=== PATIENT | male | born 1940 | race Caucasian/White ===

== ENCOUNTER 2017-07-20 21:21 | Emergency (ER) | payer MEDICARE, BC ==
[2017-07-20] MEDS ORDERED: Glucagon,Human Recombinant 1 MG Vial IVPUSH ONE (21:23)
[2017-07-20] MEDS ORDERED: 50% Dextrose in Water 50 ML Syringe IVPUSH ONE (21:42)
--- NOTE | 2017-07-20 21:42 | EDM.PDOC ---
ED HPI GENERAL MEDICAL PROBLEM - General Chief Complaint: Diabetic Complaint Stated Complaint: low blood sugar Time Seen by Provider: 07/20/17 21:34 Source of Information: Reports: Patient, EMS, Family, RN History Limitations: Reports: Altered Mental Status - History of Present Illness INITIAL COMMENTS - FREE TEXT/NARRATIVE: This patient is a 76 year old male that presents to the ER. Patient arrives via EMS. Patient family at bedside. Patient arrives with BS of 26. Patient is not alert. 20g Iv Placed left AC, 1mg Glucagon administered. Patient shortly after than now more alert. Patient family reports the patient takes insulin for his diabetes. They report he took his short acting insulin this evening prior to eating his dinner, he ate a good dinner, then about 6pm noticed patient was not acting right. She reports he was confused. She reports she then called her daughter who went over to the house to check on her father. She reports that he was confused and not acting himself. The patient about 10 minutes after having glucagon is more alert, sugar still 36. Gave amp D50. Patient is now much more alert and oriented. He has no complaints. He is now sitting up in the ER stretcher eating a food tray and drinking without difficulty. Stroke score 0. GCS 15 now. Onset: Today, Sudden Onset Date: 07/20/17 Onset Time: 18:00 Duration: Hour(s): Severity: Moderate Improves with: Reports: None Worsens with: Reports: None Associated Symptoms: Reports: Confusion, Nausea/Vomiting. Denies: Chest Pain, Cough, cough w sputum, Diaphoresis, Fever/Chills, Headaches, Loss of Appetite, Malaise, Rash, Seizure, Shortness of Breath, Syncope, Weakness - Related Data Allergies Allergy/AdvReac Type Severity Reaction Status Date / Time No Known Allergies Allergy Verified 07/20/17 21:45 Home Meds: Home Meds Ucmza-X-Dbrpyirealrtq [Beano] 1 tab PO DAILY 01/14/14 [History] Aspirin [Halfprin] 81 mg PO DAILY 01/14/14 [History] Calcium Carbonate/Vitamin D3 [Calcium 600 + Vit D 400] 5,000 units PO DAILY 05/29 [History] Cyanocobalamin (Vitamin B12) [Vitamin B12] 1 ml IM Q30D 01/14/14 [History] Folic Acid 1 mg PO DAILY 01/14/14 [History] Furosemide 40 mg PO Q48H 01/14/14 [History] Ibuprofen [Advil] 200 mg PO Q6H PRN 01/14/14 [History] Insulin Detemir [Levemir] 70 units SUBCUT BEDTIME 01/14/14 [History] Multivitamin [Multivitamins] 1 tab PO DAILY 01/14/14 [History] atorvaSTATin [Lipitor] 40 mg PO DAILY 01/14/14 [History] Docusate Sodium [Colace] 200 mg PO DAILY 07/20/17 [History] Fexofenadine [Cece] 30 mg PO ASDIRECTED PRN 07/20/17 [History] Insulin Aspart [NovoLOG] 0 unit SQ TID 07/20/17 [History] Iron Ps Cmplx/Vit B12/Fa [Poly-Iron 150 Forte] 1 each PO DAILY 07/20/17 [History ] Sodium Bicarbonate 10 gm PO TID 07/20/17 [History] Tamsulosin [Tamsulosin 24 Hr] 0.4 mg PO DAILY 07/20/17 [History] amLODIPine Besylate [Amlodipine Besylate] 5 mg PO DAILY 07/20/17 [History] ED ROS GENERAL - Review of Systems Review Of Systems: See Below Constitutional: Reports: No Symptoms HEENT: Reports: No Symptoms Respiratory: Reports: No Symptoms Cardiovascular: Reports: No Symptoms Endocrine: Reports: Low Glucose GI/Abdominal: Reports: Nausea, Vomiting (x1 in route.) : Reports: No Symptoms Musculoskeletal: Reports: No Symptoms Skin: Reports: No Symptoms Neurological: Reports: Confusion, Change in Speech (slurred) Psychiatric: Reports: No Symptoms Hematologic/Lymphatic: Reports: No Symptoms Immunologic: Reports: No Symptoms ED EXAM GENERAL NO PERIP PULSE - Physical Exam Exam: See Below Exam Limited By: Altered Mental Status General Appearance: Lethargic (response to painful stimuli. ), Obese Eye Exam: Bilateral Eye: Normal Inspection, PERRL Ears: Normal External Exam, Normal Canal, Hearing Grossly Normal, Normal TMs Nose: Normal Inspection, Normal Mucosa, No Blood Throat/Mouth: Normal Lips, Normal Teeth, Normal Gums, Normal Oropharynx, Normal Voice, No Airway Compromise, Other (drooling) Head: Atraumatic, Normocephalic Neck: Normal Inspection, Supple, Non-Tender, Full Range of Motion Respiratory/Chest: No Respiratory Distress, Lungs Clear, Normal Breath Sounds, No Accessory Muscle Use, Chest Non-Tender Cardiovascular: Normal Peripheral Pulses, Regular Rate, Rhythm, No Edema, No Gallop, No JVD, No Murmur, No Rub GI/Abdominal: Normal Bowel Sounds, Soft, Non-Tender, No Organomegaly, No Distention, No Abnormal Bruit, No Mass, Pelvis Stable (Male) Exam: Deferred Rectal (Males) Exam: Deferred Back Exam: Normal Inspection, Full Range of Motion Extremities: Normal Inspection, Normal Range of Motion, Non-Tender, No Pedal Edema, Normal Capillary Refill Neurological: Unresponsive Skin Exam: Warm, Dry, Intact, Normal Color, No Rash Lymphatic: No Adenopathy Course - Vital Signs Last Recorded V/S: Last Vital Signs Temp 96.0 F 07/20/17 21:55 Pulse 84 07/20/17 21:55 Resp 16 07/20/17 21:55 BP 140/79 07/20/17 21:55 Pulse Ox 99 07/20/17 21:55 - Orders/Labs/Meds Orders: Active Orders 24 hr Category Date Time Status Head wo Cont [CT] Stat Exams 07/20/17 22:04 Taken Labs: Laboratory Tests 07/20/17 07/20/17 07/20/17 Range/Units 21:34 21:34 21:42 WBC 7.8 (5.0-10.0) 10^3/uL RBC 3.02 L (4.50-6.00) 10^6/uL Hgb 9.1 L (14.0-18.0) g/dL Hct 29.6 L (40.0-54.0) % MCV 98.0 H (82.0-94.0) fL MCH 30.1 (27.0-32.0) pg MCHC 30.7 L (33.0-38.0) g/dL RDW Coeff of Jaida 13.8 (11.0-15.0) % Plt Count 168 (150-400) 10^3/uL Neut % (Auto) 74.1 (35-85) % Lymph % (Auto) 12.5 (10-55) % [place] % (Auto) 10.4 (0-16) % Eos % (Auto) 2.7 (0-5) % Baso % (Auto) 0.3 (0-3) % Neut # (Auto) 5.75 (1.80-7.00) 10^3/uL Lymph # (Auto) 0.97 L (1.00-4.80) 10^3/uL [place] # (Auto) 0.81 H (0.00-0.80) 10^3/uL Eos # (Auto) 0.21 (0.00-0.45) 10^3/uL Baso # (Auto) 0.02 10^3/uL Sodium 144 (136-145) mEq/L Potassium 3.3 L D (3.5-5.0) mEq/L Chloride 108 H (98-106) mEq/L Carbon Dioxide 23 (21-32) mmol/L BUN 57 H (7-18) mg/dL Creatinine 4.0 H* (0.7-1.3) mg/dL Est Cr Clr Drug Dosing TNP Estimated GFR (MDRD) 15 L (>=60) mL/min Glucose 62 L (75-99) mg/dL POC Glucose 32 L* (75-105) mg/dl Calcium 8.7 (8.4-10.1) mg/dL Total Bilirubin 0.2 (0.0-1.0) mg/dL AST 12 L (15-37) U/L ALT 25 (12-78) U/L Alkaline Phosphatase 86 (46-116) U/L Total Protein 7.0 (6.4-8.2) g/dL Albumin 2.9 L (3.4-5.0) g/dL 07/20/17 07/20/17 Range/Units 21:58 22:38 WBC (5.0-10.0) 10^3/uL RBC (4.50-6.00) 10^6/uL Hgb (14.0-18.0) g/dL Hct (40.0-54.0) % MCV (82.0-94.0) fL MCH (27.0-32.0) pg MCHC (33.0-38.0) g/dL RDW Coeff of Jaida (11.0-15.0) % Plt Count (150-400) 10^3/uL Neut % (Auto) (35-85) % Lymph % (Auto) (10-55) % [place] % (Auto) (0-16) % Eos % (Auto) (0-5) % Baso % (Auto) (0-3) % Neut # (Auto) (1.80-7.00) 10^3/uL Lymph # (Auto) (1.00-4.80) 10^3/uL [place] # (Auto) (0.00-0.80) 10^3/uL Eos # (Auto) (0.00-0.45) 10^3/uL Baso # (Auto) 10^3/uL Sodium (136-145) mEq/L Potassium (3.5-5.0) mEq/L Chloride (98-106) mEq/L Carbon Dioxide (21-32) mmol/L BUN (7-18) mg/dL Creatinine (0.7-1.3) mg/dL Est Cr Clr Drug Dosing Estimated GFR (MDRD) (>=60) mL/min Glucose (75-99) mg/dL POC Glucose 189 H 189 H (75-105) mg/dl Calcium (8.4-10.1) mg/dL Total Bilirubin (0.0-1.0) mg/dL AST (15-37) U/L ALT (12-78) U/L Alkaline Phosphatase (46-116) U/L Total Protein (6.4-8.2) g/dL Albumin (3.4-5.0) g/dL Meds: Medications Discontinued Medications Generic Name Dose Route Start Last Admin Trade Name Freq PRN Reason Stop Dose Admin Dextrose/Water 50 ml 07/20/17 21:42 07/20/17 21:47 Dextrose 50% In Water IVPUSH 07/20/17 21:43 50 ml ONETIME ONE Administration Glucagon 1 mg 07/20/17 21:23 07/20/17 21:29 Glucagen IVPUSH 07/20/17 21:24 1 mg ONETIME ONE Administration - Radiology Interpretation Free Text/Narrative:: Head ct: I called and spoke with radiologist: No acute bleed, shift, stroke. No acute finding. Ventricles enlarged, but after discussion symptoms do not match normal pressure hydrocephalus. CT Results Date: 07/20/17 CT Results Time: 23:58 - Re-Assessments/Exams Free Text/Narrative Re-Assessment/Exam: 07/20/17 21:59 Post Amp D50. Patient alert and oriented. Stroke Score 0. GCS 15. No complaints. Blood sugar now 189. Stable. 07/20/17 23:56 Blood sugar 328. Alert and oriented. No altered mental status. Will discharge. Departure - Departure Time of Disposition: 23:57 Disposition: Home, Self-Care 01 Condition: Good Clinical Impression: Hypoglycemia - Discharge Information Instructions: Hypoglycemia, [id number] Referrals: Raffi Malone MD [Primary Care Provider] - Forms: ED Department Discharge Additional Instructions: Hold Aliya Fleming Followup with your primary care provider Return to the ER for worsening of condition or any emergent concerns - My Orders Last 24 Hours: My Active Orders 07/20/17 22:04 Head wo Cont [CT] Stat - Assessment/Plan Last 24 Hours: My Active Orders 07/20/17 22:04 Head wo Cont [CT] Stat Plan: PLEASE SEE RN NOTE FOR PFSH.
[2017-07-20 22:05] LABS: CHLORIDE,CL 108 mEq/L (98-106); SODIUM,NA 144 mEq/L (136-145)
[2017-07-20 23:40] VITALS: BP 140/79
== END 2017-07-21 00:05 | disposition home or self-care (01) ==
LOC: CC.ED 21:21
DX: E11.649 Type 2 diabetes mellitus with hypoglycemia without coma (principal); Z79.4 Long term (current) use of insulin; Z79.82 Long term (current) use of aspirin; Z79.899 Other long term (current) drug therapy
CPT/HCPCS: 36415; 70450; 80053; 82962; 85025; 96374; 96375; 99285; J1610; J7060

== ENCOUNTER → 2017-08-16 | Day surgery (SDC) | payer MEDICARE, BC ==
[~2017-08-16] MED LIST: Lactated Ringers 1,000 ML IV SCH; Propofol 200 MG/20 ML SDV IV ONE
[2017-08-16 08:20] VITALS: BP 124/59
--- NOTE | 2017-08-19 10:23 | OR ---
DATE OF OPERATION: 08/16/2017 PREOPERATIVE DIAGNOSIS: IRON-DEFICIENCY ANEMIA. POSTOPERATIVE DIAGNOSIS: IRON-DEFICIENCY ANEMIA. SURGEON: Raffi Malone MD PROCEDURE: 1. FULL-LENGTH EGD WITH BIOPSY X4, CARLIE. 2. INCOMPLETE COLONOSCOPY DUE TO EXTREMELY POOR PREP. 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 COMPLICATIONS: None. SPECIMEN: 1. Antral biopsy x4. 2. CARLIE. FINDINGS: 1. Full-length EGD. 2. Antral mass worrisome for CA. 3. Colonoscopy to right colon. 4. Poor bowel prep with inconclusive colon results. RECOMMENDATIONS: We will have close followup of pending path reports. The patient likely will need a specialty consultation in the near future. INDICATIONS: The patient has been seen Nephrology for his chronic renal insufficiency. His hemoglobin levels have been slowly declining and he is iron deficient. Upper and lower endoscopy were ordered. DESCRIPTION OF PROCEDURE: The patient was prepped and draped, placed in the left lateral decubitus position. A lubricated Olympus gastroscope was inserted over a bit and advanced to cricopharyngeus area and easily intubated in the esophagus. Esophageal lining appeared benign in its entire course. The Z-line was crisp and sharp around 39 cm. No hernia present. No distal esophagitis, stricturing, ulceration, or Darling's changes. The scope was advanced into the stomach and the distal antrum had circumferential masslike effect in the peripyloric area. We were able to get through the pylorus, although it was slightly strictured into the second portion of duodenum. This and the duodenal bulb were benign. The scope was brought back into the stomach and retroflexed. The upper fundus and cardia were unremarkable. Direct visualization of the rest of the fundus was benign. The distal antrum has fungating mass extending into the lumen quite a ways, very ulcerated and friable, hard, 4 biopsies were taken along with the CARLIE. Air was then suctioned from the stomach and the scope was removed without complication. A lubricated Olympus colonoscope was then inserted and the patient immediately had stool throughout the . It was hard to get out of the rectum due to the amount of stool in the vault. It was very dark in color. We rather slowly and safely advanced past the splenic flexure, then it got very difficult to see anything at that point. We got near the hepatic flexure I assume, but visualization was so difficult. We stop for safety reasons. Upon withdrawal, no obvious or worrisome masses could be seen. We did see one area on our way in that looked like couple sessile polyps in the splenic flexure region, but by the time we were coming out of the scope, there was constant stream of stool through this area. We could not suction as it was too thick and could not find it for removal. No gross lesions were seen in the sigmoid or rectosigmoid area. The rectal vault could barely be visualized. Air was suctioned as best as possible and the scope removed without complication. FLYNN/ZAID /[id number]
== END ==
LOC: CC.SDS 06:20
PROVIDERS: ATTEND Family Medicine
DX: C16.3 Malignant neoplasm of pyloric antrum (principal); I12.9 Hypertensive chronic kidney disease with stage 1 through stage 4 chronic kidney disease, or unspecified chronic kidney disease; E11.22 Type 2 diabetes mellitus with diabetic chronic kidney disease; N18.9 Chronic kidney disease, unspecified; E78.5 Hyperlipidemia, unspecified; E53.8 Deficiency of other specified B group vitamins; E11.319 Type 2 diabetes mellitus with unspecified diabetic retinopathy without macular edema; M81.0 Age-related osteoporosis without current pathological fracture; D50.9 Iron deficiency anemia, unspecified; Z79.4 Long term (current) use of insulin; Z79.51 Long term (current) use of inhaled steroids; Z79.899 Other long term (current) drug therapy
CPT/HCPCS: 82962; 87081; 88305; 88342; J2704; J7120

== ENCOUNTER 2017-09-04 08:52 | Observation (INO) | payer MEDICARE, BC ==
[2017-09-04 09:40] LABS: CHLORIDE,CL 102 mEq/L (98-106); SODIUM,NA 138 mEq/L (136-145)
[2017-09-04] MEDS ORDERED: Ondansetron 4 MG Tab.DIS PO PRN (10:48)
[2017-09-04] MEDS ORDERED: Temazepam 15 MG Cap PO PRN (10:48)
[2017-09-04] MEDS ORDERED: Polyethylene Glycol 3350 Powder 17 GM Packet PO ONE (10:52)
[2017-09-04] MEDS ORDERED: Bisacodyl 10 MG Supp RECTAL ONE (10:52)
[2017-09-04] MEDS ORDERED: Acetaminophen/HYDROcodone 325-5 MG Tab PO PRN (10:53)
[2017-09-04] MEDS ORDERED: Sodium Chloride 0.9% 1,000 ML IV SCH (11:00)
[2017-09-04] MEDS: Insulin Aspart 100 Units/ML 3 ML Pen SUBCUT SCH ×2 (17:39→20:10)
[2017-09-04] MEDS ORDERED: **PTOM** Tamsulosin 0.4 MG Cap.ER PO SCH (20:00)
[2017-09-04] MEDS ORDERED: Insulin Detemir 100 Units/ML 3 ML Pen SUBCUT SCH (20:00)
[2017-09-04] MEDS: SODIUM BICARBONATE PO SCH (20:10)
[2017-09-05] MEDS ORDERED: **PTOM** Pantoprazole 40 MG Tab.CR PO SCH (07:00)
[2017-09-05 07:35] VITALS: BP 107/40
[2017-09-05] MEDS: Insulin Aspart 100 Units/ML 3 ML Pen SUBCUT SCH (08:00)
[2017-09-05] MEDS: SODIUM BICARBONATE PO SCH (08:13)
--- NOTE | 2017-09-05 08:42 | PCM.DCSUM1 ---
Discharge Summary - Hospital Course HPI Initial Comments: Phi is a 77 year old male with PMH of gastric cancer, type II DM, hypertension, who was admitted observation to the hospital on 09/04/2017 with severe constipation. He was recently diagnosed with gastric cancer. He had been having some abdominal pain and taking narcotics for this. He was also advised to do a high protein diet prior to surgery. Abdominal xray confirmed significant constipation related to his pain meds and high protein diet. - Discharge Data Discharge Date: 09/05/17 Discharge Disposition: Home, Self-Care 01 Condition: Good - Discharge Diagnosis/Problem(s) (1) Constipation SNOMED Code(s): 55619360 ICD Code: K59.00 - CONSTIPATION, UNSPECIFIED Status: Acute Current Visit : Yes Qualifiers: Constipation type: unspecified constipation type Qualified Code(s): K59.00 - Constipation, unspecified (2) Gastric cancer Status: Acute Current Visit: Yes Qualifiers: Malignant neoplasm of stomach location: unspecified location Qualified Code (s): C16.9 - Malignant neoplasm of stomach, unspecified - Patient Instructions Diet: Usual Diet as Tolerated Activity: As Tolerated Notify Provider of: Fever, Increased Pain, Nausea and/or Vomiting - Discharge Plan Home Medications: Home Meds Cyanocobalamin (Vitamin B12) [Vitamin B12] 1 ml IM Q30D 01/14/14 [History] Folic Acid 1 mg PO DAILY 01/14/14 [History] Furosemide 40 mg PO Q48H 01/14/14 [History] Insulin Detemir [Levemir] 40 units SUBCUT BEDTIME 01/14/14 [History] atorvaSTATin [Lipitor] 40 mg PO DAILY 01/14/14 [History] Docusate Sodium [Colace] 200 mg PO DAILY 07/20/17 [History] Fexofenadine [Cece] 180 mg PO ASDIRECTED PRN 07/20/17 [History] Insulin Aspart [NovoLOG] 28 unit SQ TID 07/20/17 [History] Iron Ps Cmplx/Vit B12/Fa [Poly-Iron 150 Forte] 1 each PO DAILY 07/20/17 [History ] Sodium Bicarbonate 10 gm PO TID 07/20/17 [History] Tamsulosin [Tamsulosin 24 Hr] 0.4 mg PO DAILY 07/20/17 [History] amLODIPine Besylate [Amlodipine Besylate] 5 mg PO DAILY 07/20/17 [History] Acetaminophen/HYDROcodone [Lyman 325-5 MG] 1 tab PO Q6H PRN 08/14/17 [History] Cholecalciferol (Vitamin D3) [Vitamin D3] 5,000 unit PO DAILY 08/14/17 [History] Lutein/Minerals/Vit A,C & E [Ocuvite] 1 tab PO DAILY 08/14/17 [History] Pantoprazole [ProTONIX] 40 mg PO DAILY 09/04/17 [History] - Discharge Summary/Plan Comment DC Time >30 min.: No - Patient Data Vitals - Most Recent: Last Vital Signs Temp 97.1 F 09/05/17 07:34 Pulse 78 09/05/17 07:34 Resp 20 09/05/17 07:34 BP 107/40 L 09/05/17 07:34 Pulse Ox 98 09/05/17 07:34 Weight - Most Recent: 224 lb 3.2 oz Lab Results - Last 24 hrs: Laboratory Results - last 24 hr 09/04/17 09/04/17 09/04/17 Range/Units 09:01 09:01 09:01 WBC 8.9 (5.0-10.0) 10^3/uL RBC 3.37 L (4.50-6.00) 10^6/uL Hgb 9.6 L (14.0-18.0) g/dL Hct 30.9 L (40.0-54.0) % MCV 91.7 (82.0-94.0) fL MCH 28.5 (27.0-32.0) pg MCHC 31.1 L (33.0-38.0) g/dL RDW Coeff of Jaida 12.9 (11.0-15.0) % Plt Count 223 (150-400) 10^3/uL Neut % (Auto) 77.8 (35-85) % Lymph % (Auto) 11.7 (10-55) % [place] % (Auto) 7.5 (0-16) % Eos % (Auto) 2.8 (0-5) % Baso % (Auto) 0.2 (0-3) % Neut # (Auto) 6.92 (1.80-7.00) 10^3/uL Lymph # (Auto) 1.04 (1.00-4.80) 10^3/uL [place] # (Auto) 0.67 (0.00-0.80) 10^3/uL Eos # (Auto) 0.25 (0.00-0.45) 10^3/uL Baso # (Auto) 0.02 10^3/uL D-Dimer, Quantitative (0.00-0.50) Sodium 138 (136-145) mEq/L Potassium 3.7 (3.5-5.0) mEq/L Chloride 102 (98-106) mEq/L Carbon Dioxide 16 L (21-32) mmol/L BUN 132 H* D (7-18) mg/dL Creatinine 4.1 H* (0.7-1.3) mg/dL Est Cr Clr Drug Dosing TNP Estimated GFR (MDRD) 14 L (>=60) mL/min Glucose 204 H D (75-99) mg/dL POC Glucose (75-105) mg/dl Calcium 9.1 (8.4-10.1) mg/dL Total Bilirubin 0.3 (0.0-1.0) mg/dL AST 16 (15-37) U/L ALT 26 (12-78) U/L Alkaline Phosphatase 94 (46-116) U/L C-Reactive Protein 6.5 H (0.2-0.8) mg/dL Total Protein 7.9 (6.4-8.2) g/dL Albumin 3.0 L (3.4-5.0) g/dL Urine Color Light yellow (YELLOW) Urine Appearance Clear (CLEAR) Urine pH 5.0 (4.5-8.0) Ur Specific [place] 1.010 (1.003-1.020) Urine Protein 100 H (NEGATIVE) mg/dL Urine Glucose (UA) 100 H (NEGATIVE) mg/dL Urine Ketones Negative (NEGATIVE) mg/dL Urine Occult Blood Negative (NEGATIVE) Urine Nitrite Negative (NEGATIVE) Urine Bilirubin Negative (NEGATIVE) Urine Urobilinogen 0.2 (0.2-1.0) EU/dL Ur Leukocyte Esterase Negative (NEGATIVE) Urine RBC Not seen (0-5) /HPF Urine WBC Not seen (0-5) /HPF Amorphous Sediment Few H (NOT SEEN) /HPF 09/04/17 09/04/17 09/04/17 Range/Units 09:01 17:02 19:42 WBC (5.0-10.0) 10^3/uL RBC (4.50-6.00) 10^6/uL Hgb (14.0-18.0) g/dL Hct (40.0-54.0) % MCV (82.0-94.0) fL MCH (27.0-32.0) pg MCHC (33.0-38.0) g/dL RDW Coeff of Jaida (11.0-15.0) % Plt Count (150-400) 10^3/uL Neut % (Auto) (35-85) % Lymph % (Auto) (10-55) % [place] % (Auto) (0-16) % Eos % (Auto) (0-5) % Baso % (Auto) (0-3) % Neut # (Auto) (1.80-7.00) 10^3/uL Lymph # (Auto) (1.00-4.80) 10^3/uL [place] # (Auto) (0.00-0.80) 10^3/uL Eos # (Auto) (0.00-0.45) 10^3/uL Baso # (Auto) 10^3/uL D-Dimer, Quantitative 1.77 H (0.00-0.50) Sodium (136-145) mEq/L Potassium (3.5-5.0) mEq/L Chloride (98-106) mEq/L Carbon Dioxide (21-32) mmol/L BUN (7-18) mg/dL Creatinine (0.7-1.3) mg/dL Est Cr Clr Drug Dosing Estimated GFR (MDRD) (>=60) mL/min Glucose (75-99) mg/dL POC Glucose 339 H 313 H (75-105) mg/dl Calcium (8.4-10.1) mg/dL Total Bilirubin (0.0-1.0) mg/dL AST (15-37) U/L ALT (12-78) U/L Alkaline Phosphatase (46-116) U/L C-Reactive Protein (0.2-0.8) mg/dL Total Protein (6.4-8.2) g/dL Albumin (3.4-5.0) g/dL Urine Color (YELLOW) Urine Appearance (CLEAR) Urine pH (4.5-8.0) Ur Specific [place] (1.003-1.020) Urine Protein (NEGATIVE) mg/dL Urine Glucose (UA) (NEGATIVE) mg/dL Urine Ketones (NEGATIVE) mg/dL Urine Occult Blood (NEGATIVE) Urine Nitrite (NEGATIVE) Urine Bilirubin (NEGATIVE) Urine Urobilinogen (0.2-1.0) EU/dL Ur Leukocyte Esterase (NEGATIVE) Urine RBC (0-5) /HPF Urine WBC (0-5) /HPF Amorphous Sediment (NOT SEEN) /HPF 09/05/17 Range/Units 07:34 WBC (5.0-10.0) 10^3/uL RBC (4.50-6.00) 10^6/uL Hgb (14.0-18.0) g/dL Hct (40.0-54.0) % MCV (82.0-94.0) fL MCH (27.0-32.0) pg MCHC (33.0-38.0) g/dL RDW Coeff of Jaida (11.0-15.0) % Plt Count (150-400) 10^3/uL Neut % (Auto) (35-85) % Lymph % (Auto) (10-55) % [place] % (Auto) (0-16) % Eos % (Auto) (0-5) % Baso % (Auto) (0-3) % Neut # (Auto) (1.80-7.00) 10^3/uL Lymph # (Auto) (1.00-4.80) 10^3/uL [place] # (Auto) (0.00-0.80) 10^3/uL Eos # (Auto) (0.00-0.45) 10^3/uL Baso # (Auto) 10^3/uL D-Dimer, Quantitative (0.00-0.50) Sodium (136-145) mEq/L Potassium (3.5-5.0) mEq/L Chloride (98-106) mEq/L Carbon Dioxide (21-32) mmol/L BUN (7-18) mg/dL Creatinine (0.7-1.3) mg/dL Est Cr Clr Drug Dosing Estimated GFR (MDRD) (>=60) mL/min Glucose (75-99) mg/dL POC Glucose 139 H (75-105) mg/dl Calcium (8.4-10.1) mg/dL Total Bilirubin (0.0-1.0) mg/dL AST (15-37) U/L ALT (12-78) U/L Alkaline Phosphatase (46-116) U/L C-Reactive Protein (0.2-0.8) mg/dL Total Protein (6.4-8.2) g/dL Albumin (3.4-5.0) g/dL Urine Color (YELLOW) Urine Appearance (CLEAR) Urine pH (4.5-8.0) Ur Specific [place] (1.003-1.020) Urine Protein (NEGATIVE) mg/dL Urine Glucose (UA) (NEGATIVE) mg/dL Urine Ketones (NEGATIVE) mg/dL Urine Occult Blood (NEGATIVE) Urine Nitrite (NEGATIVE) Urine Bilirubin (NEGATIVE) Urine Urobilinogen (0.2-1.0) EU/dL Ur Leukocyte Esterase (NEGATIVE) Urine RBC (0-5) /HPF Urine WBC (0-5) /HPF Amorphous Sediment (NOT SEEN) /HPF Med Orders - Current: Current Medications Hydrocodone Bitart/Acetaminophen (Lyman 325-5 Mg) 1 tab PO Q6H PRN PRN Reason: Pain Last Admin: 09/04/17 11:29 Dose: 1 tab Amlodipine Besylate (Norvasc) 5 mg PO DAILY [facility] Insulin Aspart (Novolog) 0 unit SUBCUT WITHMEALSANDBED [facility]; Protocol Last Admin: 09/04/17 20:10 Dose: 8 units Insulin Detemir (Levemir) 40 unit SUBCUT BEDTIME [facility] Last Admin: 09/04/17 20:08 Dose: 40 units Ptom Sodium Bicarbonate [Sodium Bicarbonate] 650 Gm 650 gm PO TID [facility] Last Admin: 09/05/17 08:13 Dose: 650 gm Ondansetron HCl (Zofran Odt) 8 mg PO Q6H PRN PRN Reason: nausea, able to take PO Pantoprazole Sodium (Protonix) 40 mg PO ACBREAKFAST [facility] Last Admin: 09/05/17 08:13 Dose: 40 mg Tamsulosin HCl (Flomax) 0.4 mg PO DAILY@1999 [facility] Last Admin: 09/04/17 20:07 Dose: 0.4 mg Temazepam (Restoril) 15 mg PO BEDTIME PRN PRN Reason: Sleep Discontinued Medications Bisacodyl (Dulcolax) 10 mg RECTAL ONETIME ONE Stop: 09/04/17 10:53 Last Admin: 09/04/17 11:29 Dose: 10 mg Sodium Chloride (Normal Saline) 1,000 mls @ 75 mls/hr IV ASDIRECTED [facility] Last Admin: 09/04/17 11:29 Dose: 75 mls/hr Polyethylene Glycol (Miralax) 17 gm PO ONETIME ONE Stop: 09/04/17 10:53 Last Admin: 09/04/17 11:28 Dose: 17 gm
[2017-09-05] MEDS ORDERED: **PTOM** amLODIPine 10 MG Tab PO SCH (16:00)
== END 2017-09-05 10:00 | disposition home or self-care (01) ==
LOC: CC.MS 08:52 → CC.FCMC 08:52 → UNDOADMOB 09:51 → CC.MS 09:51
PROVIDERS: ADMIT Family Medicine; ATTEND Family Medicine
DX: K59.03 Drug induced constipation (principal); T40.2X5A Adverse effect of other opioids, initial encounter; C16.9 Malignant neoplasm of stomach, unspecified; E53.8 Deficiency of other specified B group vitamins; N40.1 Benign prostatic hyperplasia with lower urinary tract symptoms; N39.43 Post-void dribbling; I12.9 Hypertensive chronic kidney disease with stage 1 through stage 4 chronic kidney disease, or unspecified chronic kidney disease; N18.9 Chronic kidney disease, unspecified; E11.22 Type 2 diabetes mellitus with diabetic chronic kidney disease; E78.5 Hyperlipidemia, unspecified; D50.9 Iron deficiency anemia, unspecified; Z79.899 Other long term (current) drug therapy; Z79.4 Long term (current) use of insulin; Z87.891 Personal history of nicotine dependence
CPT/HCPCS: 36415; 74019; 80053; 81001; 82962; 85025; 85379; 86140; 93005; 96360; 96361; A9270; G0365; G0378; J1815; J7030

== ENCOUNTER 2017-09-06 22:30 | Emergency (ER) | payer MEDICARE, BC ==
[2017-09-06 23:00] VITALS: BP 143/75
--- NOTE | 2017-09-06 23:59 | EDM.PDOC ---
ED HPI GENERAL MEDICAL PROBLEM - General Chief Complaint: General Stated Complaint: constipation Time Seen by Provider: 09/06/17 23:00 Source of Information: Reports: Patient, Old Records History Limitations: Reports: No Limitations - History of Present Illness Onset: Other (chronic constipation waxing and waning for several weeks) Duration: Waxing/Waning Location: Reports: Other (constipation) Associated Symptoms: Reports: No Other Symptoms Rectal Pain Score (Numeric/FACES): 8 - Related Data Allergies Allergy/AdvReac Type Severity Reaction Status Date / Time No Known Allergies Allergy Verified 09/06/17 22:53 Home Meds: Home Meds Cyanocobalamin (Vitamin B12) [Vitamin B12] 1 ml IM Q30D 01/14/14 [History] Folic Acid 1 mg PO DAILY 01/14/14 [History] Furosemide 40 mg PO Q48H 01/14/14 [History] Insulin Detemir [Levemir] 40 units SUBCUT BEDTIME 01/14/14 [History] atorvaSTATin [Lipitor] 40 mg PO DAILY 01/14/14 [History] Docusate Sodium [Colace] 200 mg PO DAILY 07/20/17 [History] Fexofenadine [Cece] 180 mg PO ASDIRECTED PRN 07/20/17 [History] Insulin Aspart [NovoLOG] 28 unit SQ TID 07/20/17 [History] Iron Ps Cmplx/Vit B12/Fa [Poly-Iron 150 Forte] 1 each PO DAILY 07/20/17 [History ] Sodium Bicarbonate 10 gm PO TID 07/20/17 [History] Tamsulosin [Flomax] 0.4 mg PO DAILY 07/20/17 [History] amLODIPine Besylate [Amlodipine Besylate] 5 mg PO DAILY 07/20/17 [History] Acetaminophen/HYDROcodone [[place] 325-5 MG] 1 tab PO Q6H PRN 08/14/17 [History] Cholecalciferol (Vitamin D3) [Vitamin D3] 5,000 unit PO DAILY 08/14/17 [History] Lutein/Minerals/Vit A,C & E [Ocuvite] 1 tab PO DAILY 08/14/17 [History] Pantoprazole [ProTONIX] 40 mg PO DAILY 09/04/17 [History] Polyethylene Glycol 3350 [MiraLAX] 17 gm PO DAILY #30 packet 09/05/17 [Rx] Past Medical History HEENT History: Reports: Cataract, Impaired Vision Cardiovascular History: Reports: High Cholesterol, Hypertension Gastrointestinal History: Reports: Chronic Constipation, GERD Genitourinary History: Reports: BPH, Chronic Renal Insuffiency Musculoskeletal History: Reports: Arthritis, Back Pain, Chronic, Other (See Below) Other Musculoskeletal History: compression fractures Endocrine/Metabolic History: Reports: Diabetes, Type II, IDDM Hematologic History: Reports: B12 Deficiency Oncologic (Cancer) History: Reports: Other (See Below) Other Oncologic History: Gastric - Past Surgical History HEENT Surgical History: Reports: Cataract Surgery Cardiovascular Surgical History: Reports: None GI Surgical History: Reports: Appendectomy, Cholecystectomy Male Surgical History: Reports: None Musculoskeletal Surgical History: Reports: Hip Replacement, Other (See Below) Other Musculoskeletal Surgeries/Procedures:: elbow surgery. vertebralplasty X3. Oncologic Surgical History: Reports: None Social & Family History - Family History Family Medical History: Noncontributory - Tobacco Use Smoking Status *Q: Former Smoker Used Tobacco, but Quit: Yes Month/Year Tobacco Last Used: YEARS AGO - Caffeine Use Caffeine Use: Reports: Coffee ED ROS GENERAL - Review of Systems Review Of Systems: See Below Constitutional: Reports: No Symptoms Respiratory: Reports: No Symptoms Cardiovascular: Reports: No Symptoms GI/Abdominal: Reports: Constipation, Distension, Other (Denies N/V/D, trauma. Reports rectal pressure and pain) : Reports: No Symptoms ED EXAM, GENERAL - Physical Exam Exam: See Below Exam Limited By: No Limitations General Appearance: Alert, WD/WN, No Apparent Distress Respiratory/Chest: No Respiratory Distress, No Accessory Muscle Use Cardiovascular: Normal Peripheral Pulses, Regular Rate, Rhythm (Abdomen soft, nontender x4. No bruising, guarding, CVA tenderness. Hyperactive BS x4.) (Male) Exam: No Hernia, Normal Inspection Rectal (Males) Exam: Normal Exam, Fecal Impaction Back Exam: Normal Inspection Skin Exam: Warm, Dry, Intact, Normal Color, No Rash Course - Vital Signs Last Recorded V/S: Last Vital Signs Temp 36.8 C 09/06/17 22:53 Pulse 109 H 09/06/17 22:53 Resp 18 09/06/17 22:53 BP 143/75 H 09/06/17 22:53 Pulse Ox Departure - Departure Time of Disposition: 00:17 Disposition: Home, Self-Care 01 Clinical Impression: Constipation Qualifiers: Constipation type: unspecified constipation type Qualified Code(s): K59.00 - Constipation, unspecified - Discharge Information Instructions: Constipation, Adult Referrals: Raffi Malone MD [Primary Care Provider] - Forms: ED Department Discharge - Assessment/Plan Assessment:: The patient's constipation appears to arise from the cancerous process affecting his colon. I do not suspect any acute pathology at this time including but not limited to infection, AAA, mary bleeding, trauma, or foreign body. Here in the ED he is given a soap suds enema and a fleets enema, which relieved his constipation. I offered the patient obs status but he declines at this time and would like to go home. I stressed to the patient and his spouse at bedside the importance of prompt return to the ED for any new or worse symptoms. He is advised to rest, hydrate, continue PO miralax, fu with surgeon or come to ED for changes. The patient and his spouse report understanding and agreement with plan. He is dc home stable in care of spouse.
== END 2017-09-07 00:30 | disposition home or self-care (01) ==
LOC: CC.ED 22:30
DX: K59.00 Constipation, unspecified (principal); E78.00 Pure hypercholesterolemia, unspecified; I12.9 Hypertensive chronic kidney disease with stage 1 through stage 4 chronic kidney disease, or unspecified chronic kidney disease; E11.22 Type 2 diabetes mellitus with diabetic chronic kidney disease; N18.9 Chronic kidney disease, unspecified; K21.9 Gastro-esophageal reflux disease without esophagitis; Z79.899 Other long term (current) drug therapy; Z79.4 Long term (current) use of insulin; Z87.891 Personal history of nicotine dependence
CPT/HCPCS: 99283

== ENCOUNTER 2018-02-09 07:47 | Emergency (ER) | payer MEDICARE, BC ==
[2018-02-09] MEDS ORDERED: Ondansetron 4 MG Tab.DIS PO ONE ×2 (07:48→08:36)
[2018-02-09 07:54] VITALS: BP 103/44
[2018-02-09] MEDS ORDERED: Acetaminophen/HYDROcodone 325-5 MG Tab PO ONE (08:35)
--- NOTE | 2018-02-09 08:51 | EDM.PDOC ---
ED HPI GENERAL MEDICAL PROBLEM - General Chief Complaint: General Stated Complaint: Diarrhea, nausea, vomiting since having chemotherapy last week. Has been having diarrhea multiple times daily, vomiting 3 times daily. Has been taking Imodium for diarrhea, however not taking anything for nausea. Reports lower abdominal pain and has history of gastric cancer, but hasn't been taking anything for pain. Does not like taking narcotics on a regular basis. Daugher is concerned about kidney function, creatinine last week was 4.3 at [facility] per daughter. Time Seen by Provider: 02/09/18 08:34 Source of Information: Reports: Patient, Family History Limitations: Reports: No Limitations - History of Present Illness Onset: Gradual Onset Date: 02/03/18 Duration: Week(s):, Constant Location: Reports: Abdomen Quality: Reports: Ache Severity: Moderate Improves with: Reports: None Worsens with: Reports: None Associated Symptoms: Reports: Nausea/Vomiting, Other (diarrhea) Generalized Pain Score (Numeric/FACES): 8 - Related Data Allergies Allergy/AdvReac Type Severity Reaction Status Date / Time metoclopramide [From Reglan] Allergy Headache Verified 02/09/18 08:03 Home Meds: Home Meds Folic Acid 1 mg PO DAILY 01/14/14 [History] Furosemide 40 mg PO Q48H 01/14/14 [History] Insulin Detemir [Levemir] 8 units SUBCUT BEDTIME 01/14/14 [History] atorvaSTATin [Lipitor] 40 mg PO DAILY 01/14/14 [History] Docusate Sodium [Colace] 200 mg PO DAILY PRN 07/20/17 [History] Fexofenadine [Ecce] 180 mg PO ASDIRECTED PRN 07/20/17 [History] Insulin Aspart [NovoLOG] 8 unit SQ TID 07/20/17 [History] Iron Ps Cmplx/Vit B12/Fa [Poly-Iron 150 Forte] 1 each PO DAILY 07/20/17 [History ] Sodium Bicarbonate 10 gm PO TID 07/20/17 [History] Tamsulosin [Flomax] 0.4 mg PO BID 07/20/17 [History] amLODIPine Besylate [Amlodipine Besylate] 5 mg PO DAILY 07/20/17 [History] Cholecalciferol (Vitamin D3) [Vitamin D3] 5,000 unit PO DAILY 08/14/17 [History] Lutein/Minerals/Vit A,C & E [Ocuvite] 1 tab PO DAILY 08/14/17 [History] Nmwbj-Q-Thlawdthvyztt [Beano] 1 tab PO BID PRN 02/07/18 [History] Past Medical History HEENT History: Reports: Cataract, Impaired Vision Cardiovascular History: Reports: High Cholesterol, Hypertension Gastrointestinal History: Reports: Chronic Constipation, GERD Other Gastrointestinal History: gastric cancer Genitourinary History: Reports: BPH, Chronic Renal Insuffiency Musculoskeletal History: Reports: Arthritis, Back Pain, Chronic, Other (See Below) Other Musculoskeletal History: compression fractures Endocrine/Metabolic History: Reports: Diabetes, Type II, IDDM Hematologic History: Reports: B12 Deficiency Immunologic History: Reports: Immunosuppression Oncologic (Cancer) History: Reports: Other (See Below) Other Oncologic History: Gastric - Past Surgical History HEENT Surgical History: Reports: Cataract Surgery Cardiovascular Surgical History: Reports: None GI Surgical History: Reports: Appendectomy, Cholecystectomy Male Surgical History: Reports: None Musculoskeletal Surgical History: Reports: Hip Replacement, Other (See Below) Other Musculoskeletal Surgeries/Procedures:: elbow surgery. vertebralplasty X3. Oncologic Surgical History: Reports: None Social & Family History - Family History Family Medical History: Noncontributory - Tobacco Use Smoking Status *Q: Former Smoker Used Tobacco, but Quit: Yes Month/Year Tobacco Last Used: 12/2007 - Caffeine Use Caffeine Use: Reports: Coffee ED ROS GENERAL - Review of Systems Review Of Systems: See Below Constitutional: Reports: Malaise, Fatigue HEENT: Reports: No Symptoms Respiratory: Reports: No Symptoms Cardiovascular: Reports: No Symptoms Endocrine: Reports: No Symptoms GI/Abdominal: Reports: Abdominal Pain, Diarrhea, Nausea, Vomiting : Reports: No Symptoms Musculoskeletal: Reports: No Symptoms Skin: Reports: Other (ulcers on lower lip) Neurological: Reports: No Symptoms Psychiatric: Reports: No Symptoms Hematologic/Lymphatic: Reports: Anemia Immunologic: Reports: Other (Immunosupression; just recieved chemo about 1 week ago) ED EXAM, GENERAL - Physical Exam Exam: See Below Exam Limited By: No Limitations General Appearance: Alert, WD/WN, No Apparent Distress Nose: Normal Inspection, Normal Mucosa, No Blood Throat/Mouth: Normal Inspection, Normal Teeth, Normal Gums, Normal Oropharynx, Normal Voice, No Airway Compromise, Other (ulcerations on lips are scabbed over. ) Head: Atraumatic, Normocephalic Neck: Normal Inspection, Supple, Non-Tender, Full Range of Motion Respiratory/Chest: No Respiratory Distress, Lungs Clear, Normal Breath Sounds, No Accessory Muscle Use, Chest Non-Tender Cardiovascular: Normal Peripheral Pulses, Regular Rate, Rhythm, No Edema, No Gallop, No JVD, No Murmur, No Rub GI/Abdominal: Normal Bowel Sounds, Soft, Non-Tender, No Organomegaly, No Distention, No Abnormal Bruit, No Mass, Pelvis Stable (Male) Exam: Deferred Rectal (Males) Exam: Deferred Neurological: Alert, Oriented, CN II-XII Intact, Normal Cognition, Normal Gait, No Motor/Sensory Deficits Psychiatric: Normal Affect, Normal Mood Skin Exam: Warm, Dry, Intact, Normal Color, No Rash Course - Vital Signs Text/Narrative:: Recieved IVF and Hydrocodone, as well as Zofran. Nausea resolved. No vomiting. No diarrhea while here. Feeling better. Last Recorded V/S: Last Vital Signs Temp 37.2 C 02/09/18 07:51 Pulse 54 L 02/09/18 07:51 Resp 16 02/09/18 07:51 BP 103/44 L 02/09/18 07:51 Pulse Ox 100 02/09/18 07:51 - Orders/Labs/Meds Labs: Laboratory Tests 02/09/18 02/09/18 Range/Units 08:10 08:10 WBC 1.0 L* (5.0-10.0) 10^3/uL RBC 3.25 L (4.50-6.00) 10^6/uL Hgb 9.7 L (14.0-18.0) g/dL Hct 29.8 L (40.0-54.0) % MCV 91.7 (82.0-94.0) fL MCH 29.8 (27.0-32.0) pg MCHC 32.6 L (33.0-38.0) g/dL RDW Coeff of Jaida 13.7 (11.0-15.0) % Plt Count 78 L (150-400) 10^3/uL Add Manual Diff Yes Neutrophils % (Manual) 36 (35-85) % Band Neutrophils % 16 H (0-5) % Lymphocytes % (Manual) 40 (21-55) % Monocytes % (Manual) 4 (2-12) % Eosinophils % (Manual) 4 (0-5) % Absolute Neutrophils 0.52 L (1.80-7.00) 10^3/uL Lymphocytes # (Manual) 0.40 L (1.00-4.80) 10^3/uL Monocytes # (Manual) 0.04 (0.00-0.80) 10^3/uL Eosinophils # (Manual) 0.04 (0.00-0.45) 10^3/uL Sodium 133 L (136-145) mEq/L Potassium 5.1 H (3.5-5.0) mEq/L Chloride 100 (98-106) mEq/L Carbon Dioxide 17 L (21-32) mmol/L BUN 78 H* (7-18) mg/dL Creatinine 5.1 H* D (0.7-1.3) mg/dL Est Cr Clr Drug Dosing 12.52 mL/min Estimated GFR (MDRD) 11 L (>=60) mL/min Glucose 292 H D (75-99) mg/dL Calcium 8.1 L (8.4-10.1) mg/dL Total Bilirubin 0.5 (0.0-1.0) mg/dL AST 7 L (15-37) U/L ALT 13 (12-78) U/L Alkaline Phosphatase 65 (46-116) U/L Total Protein 6.8 (6.4-8.2) g/dL Albumin 2.7 L (3.4-5.0) g/dL Meds: Medications Discontinued Medications Generic Name Dose Route Start Last Admin Trade Name Meño PRN Reason Stop Dose Admin Hydrocodone Bitart/Acetaminophen 1 tab 02/09/18 08:35 02/09/18 08:44 [place] 325-5 Mg PO 02/09/18 08:36 1 tab ONETIME ONE Administration Sodium Chloride 1,000 mls @ 999 mls/hr 02/09/18 08:52 02/09/18 09:00 Normal Saline IV 02/09/18 09:52 999 mls/hr .BOLUS ONE Administration Sodium Chloride Confirm 02/09/18 08:59 02/09/18 09:00 Normal Saline Administered 02/09/18 09:00 Not Given Dose 1,000 mls @ as directed .ROUTE .STK-MED ONE Ondansetron HCl 4 mg 02/09/18 08:36 02/09/18 08:45 Zofran Odt PO 02/09/18 08:37 4 mg ONETIME ONE Administration Departure - Departure Time of Disposition: 10:06 Disposition: Home, Self-Care 01 Condition: Good Clinical Impression: Diarrhea, Vomiting, Leukopenia due to antineoplastic chemotherapy, Hyperkalemia , CKD (chronic kidney disease), Dehydration - Discharge Information *PRESCRIPTION DRUG MONITORING PROGRAM REVIEWED*: Not Applicable *COPY OF PRESCRIPTION DRUG MONITORING REPORT IN PATIENT CHRISTINA: Not Applicable Forms: ED Department Discharge Additional Instructions: BMP tomorrow and then follow up with Dr. Malone on results. Take medications as directed. Follow up with Oncology at next scheduled appointment. Return to ED if symptoms worsen. - Problem List & Annotations (1) Diarrhea SNOMED Code(s): 81551822 Code(s): R19.7 - DIARRHEA, UNSPECIFIED Status: Acute Current Visit: No (2) Vomiting SNOMED Code(s): 131280102 Code(s): R11.10 - VOMITING, UNSPECIFIED Status: Acute Current Visit: No (3) Chronic renal disease SNOMED Code(s): 296901331 Code(s): N18.9 - CHRONIC KIDNEY DISEASE, UNSPECIFIED Status: Acute Current Visit: No (4) Leukopenia due to antineoplastic chemotherapy SNOMED Code(s): 293499633 Code(s): D70.1 - AGRANULOCYTOSIS SECONDARY TO CANCER CHEMOTHERAPY; T45.1X5A - ADVERSE EFFECT OF ANTINEOPLASTIC AND IMMUNOSUP DRUGS, INIT Status: Acute Current Visit: No (5) Anemia SNOMED Code(s): 741843708 Code(s): D64.9 - ANEMIA, UNSPECIFIED Status: Acute Current Visit: No Qualifiers: Other causes of anemia: antineoplastic chemotherapy (6) Hyperkalemia SNOMED Code(s): 67641766 Code(s): E87.5 - HYPERKALEMIA Status: Acute Current Visit: No - Problem List Review Problem List Initiated/Reviewed/Updated: Yes - Assessment/Plan Assessment:: Diarrhea and Vomiting since chemotherapy last week. Has received IVF, hydrocodone, and zofran here and has not had any further vomiting, diarrhea and feeling better now. Patient immunosuppressed, will discharge home today and have repeat labs tomorrow and f/u with Dr. Malone. Immunosupression Leukopenia Hyperkalemia Anemia Chronic kidney disease Gastric cancer Plan: 77 year old male with gastric cancer undergoing chemotherapy last week and since then has had diarrhea, nausea, and vomiting. Has been taking Imodium for diarrhea with little improvement. Has not been taking any thing for abdominal pain or nausea/ vomiting. Discussed with patient and his that if he takes Zofran for nausea/ vomiting and get that stopped and diarrhea decreases or stops , renal function should improve. They verbalize understanding and agreement with plan. -Start Zofran 4 mg q 6 hr for nausea/ vomiting -start taking Hydrocodone for pain, discussed that hydrocodone side effect is constipation which may decrease diarrhea. Patient states that he has hydrocodone at home. -push fluids -have repeat BMP tomorrow and follow up with Dr. Malone on results of potassium and kidney function.
[2018-02-09] MEDS ORDERED: Sodium Chloride 0.9% 1,000 ML IV ONE (08:52)
[2018-02-09] MEDS ORDERED: Sodium Chloride 0.9% 1,000 ML ONE (08:59)
[2018-02-09] MEDS ORDERED: Take Home: Ondansetron 4 MG Tab.DIS, 2 Tab Pack PO ONE (10:06)
== END 2018-02-09 10:40 | disposition home or self-care (01) ==
LOC: SUPCPDRO 07:47 → CC.ED 07:47
DX: E86.0 Dehydration (principal); C16.9 Malignant neoplasm of stomach, unspecified; D70.1 Agranulocytosis secondary to cancer chemotherapy; E87.5 Hyperkalemia; I12.9 Hypertensive chronic kidney disease with stage 1 through stage 4 chronic kidney disease, or unspecified chronic kidney disease; N18.9 Chronic kidney disease, unspecified; R19.7 Diarrhea, unspecified; R11.2 Nausea with vomiting, unspecified; E78.00 Pure hypercholesterolemia, unspecified; Z88.8 Allergy status to other drugs, medicaments and biological substances; Z79.84 Long term (current) use of oral hypoglycemic drugs; Z79.4 Long term (current) use of insulin; Z79.899 Other long term (current) drug therapy
CPT/HCPCS: 36415; 80053; 85025; 96360; 99284; A9270; J7030

== ENCOUNTER 2018-02-09 22:28 | Inpatient (IN) | payer MEDICARE, BC ==
[2018-02-09] MEDS ORDERED: Lidocaine 1% 20 ML MDV ONE (22:31)
[2018-02-09] MEDS ORDERED: Diphtheria,Pertussis(Acell),Tetanus Vaccine 0.5 ML Syringe IM ONE (22:34)
[2018-02-09] MEDS ORDERED: Lidocaine 1% 30 ML SDV INJECT STA (22:45)
--- NOTE | 2018-02-09 22:49 | EDM.PDOC ---
ED HPI GENERAL MEDICAL PROBLEM - General Chief Complaint: Laceration Stated Complaint: Fell at home when he was taking his pants off, states he felt weak. Continued diarrhea, patient was in earlier today with diarrhea, nausea, and vomiting. Status post chemotherapy about 1 week ago. Time Seen by Provider: 02/09/18 22:34 Source of Information: Reports: Patient, Family History Limitations: Reports: No Limitations - History of Present Illness Onset: Today, Sudden Severity: Mild Improves with: Reports: None Worsens with: Reports: None Context: Reports: Activity Associated Symptoms: Reports: Malaise, Weakness - Related Data Allergies Allergy/AdvReac Type Severity Reaction Status Date / Time metoclopramide [From Reglan] Allergy Headache Verified 02/09/18 22:31 Home Meds: Home Meds Folic Acid 1 mg PO DAILY 01/14/14 [History] Furosemide 40 mg PO Q48H 01/14/14 [History] Insulin Detemir [Levemir] 8 units SUBCUT BEDTIME 01/14/14 [History] atorvaSTATin [Lipitor] 40 mg PO DAILY 01/14/14 [History] Docusate Sodium [Colace] 200 mg PO DAILY PRN 07/20/17 [History] Fexofenadine [Cece] 180 mg PO ASDIRECTED PRN 07/20/17 [History] Insulin Aspart [NovoLOG] 8 unit SQ TID 07/20/17 [History] Iron Ps Cmplx/Vit B12/Fa [Poly-Iron 150 Forte] 1 each PO DAILY 07/20/17 [History ] Sodium Bicarbonate 10 gm PO TID 07/20/17 [History] Tamsulosin [Flomax] 0.4 mg PO BID 07/20/17 [History] amLODIPine Besylate [Amlodipine Besylate] 5 mg PO DAILY 07/20/17 [History] Cholecalciferol (Vitamin D3) [Vitamin D3] 5,000 unit PO DAILY 08/14/17 [History] Lutein/Minerals/Vit A,C & E [Ocuvite] 1 tab PO DAILY 08/14/17 [History] Vfsrb-[id number]-Ixcxmcefhsxtv [Beano] 1 tab PO BID PRN 02/07/18 [History] Hydrocodone/Acetaminophen [Hydrocodon-Acetaminoph 2.5-325] 1 tab PO Q4H PRN [History] Ondansetron HCl [Zofran] 4 mg PO Q6H PRN 02/09/18 [History] Past Medical History HEENT History: Reports: Cataract, Impaired Vision Cardiovascular History: Reports: High Cholesterol, Hypertension Gastrointestinal History: Reports: Chronic Constipation, GERD Other Gastrointestinal History: gastric cancer Genitourinary History: Reports: BPH, Chronic Renal Insuffiency Musculoskeletal History: Reports: Arthritis, Back Pain, Chronic, Other (See Below) Other Musculoskeletal History: compression fractures Endocrine/Metabolic History: Reports: Diabetes, Type II, IDDM Hematologic History: Reports: B12 Deficiency Immunologic History: Reports: Immunosuppression Oncologic (Cancer) History: Reports: Other (See Below) Other Oncologic History: Gastric - Past Surgical History HEENT Surgical History: Reports: Cataract Surgery Cardiovascular Surgical History: Reports: None GI Surgical History: Reports: Appendectomy, Cholecystectomy Male Surgical History: Reports: None Musculoskeletal Surgical History: Reports: Hip Replacement, Other (See Below) Other Musculoskeletal Surgeries/Procedures:: elbow surgery. vertebralplasty X3. Oncologic Surgical History: Reports: None Social & Family History - Family History Family Medical History: Noncontributory - Caffeine Use Caffeine Use: Reports: Coffee ED ROS GENERAL - Review of Systems Review Of Systems: See Below Constitutional: Reports: Weakness, Fatigue HEENT: Reports: Other (lip ulcerations) Respiratory: Reports: No Symptoms Cardiovascular: Reports: No Symptoms Endocrine: Reports: No Symptoms GI/Abdominal: Reports: No Symptoms : Reports: No Symptoms Musculoskeletal: Reports: No Symptoms Skin: Reports: No Symptoms Neurological: Reports: No Symptoms Hematologic/Lymphatic: Reports: Anemia Immunologic: Reports: No Symptoms ED EXAM, SKIN/RASH Exam: See Below Exam Limited By: No Limitations General Appearance: Alert, WD/WN, No Apparent Distress Eye Exam: Bilateral Eye: EOMI, PERRL Head: Atraumatic, Normocephalic Neck: Normal Inspection, Supple, Non-Tender Respiratory/Chest: No Respiratory Distress, Lungs Clear, Normal Breath Sounds, No Accessory Muscle Use Cardiovascular: Normal Peripheral Pulses, Regular Rate, Rhythm GI/Abdominal: Normal Bowel Sounds, Soft, Non-Tender, No Organomegaly, No Distention, Pelvis Stable (Male) Exam: Deferred Rectal (Males) Exam: Deferred Neurological: Alert, Oriented, CN II-XII Intact, Normal Cognition, Normal Gait Psychiatric: Normal Affect, Normal Mood Skin: Warm, Dry, No Rash, Other (laceration under 4th and 5th right toes. sensation decreased in toes and foot; neurovascular intact. 5th toe laceration deep just hanging on.) Location, Skin: Other (right 4/5th toes decreased sensation and unable to move toes actively. Dorsalis pedis pulse 1-2+) ED SKIN PROCEDURES - Laceration/Wound Repair Right Toe - Little Appearance: Subcutaneous, Linear Distal NVT: Neuro & Vascular Intact Anesthetic Type: Local Local Anesthesia - Lidocaine (Xylocaine): 1% Plain Skin Prep: Saline Exploration/Debridement/Repair: Wound Explored Closed with: Sutures Suture Size: 3-0 # of Sutures: 6 Sterile Dressing Applied: Nurse Tetanus Status Addressed: Yes Complications: No Course - Vital Signs Last Recorded V/S: Last Vital Signs Temp 37.4 C 02/10/18 04:00 Pulse 107 H 02/10/18 04:00 Resp 20 02/10/18 04:00 BP 116/49 L 02/10/18 04:00 Pulse Ox 97 02/10/18 04:00 - Orders/Labs/Meds Orders: Active Orders 24 hr Category Date Time Status Vaccines to be Administered [RC] PER UNIT ROUTINE Care 02/09/18 22:34 Inactive Medication Orders Acetaminophen (Tylenol) 650 mg PO Q4H PRN PRN Reason: Fever Hydrocodone Bitart/Acetaminophen ([place] 325-5 Mg) 0.5 tab PO Q4H PRN PRN Reason: PAIN Last Admin: 02/10/18 02:54 Dose: 0.5 tab Atorvastatin Calcium (Lipitor) 40 mg PO DAILY [facility] Last Admin: 02/10/18 07:37 Dose: 40 mg Cholecalciferol (Vitamin D3) 5,000 units PO DAILY [facility] Last Admin: 02/10/18 07:37 Dose: 5,000 units Docusate Sodium (Colace) 200 mg PO DAILY PRN PRN Reason: Constipation Folic Acid (Folic Acid) 1 mg PO DAILY [facility] Last Admin: 02/10/18 07:37 Dose: 1 mg Insulin Aspart (Novolog) 8 unit SUBCUT TID [facility] Last Admin: 02/10/18 07:45 Dose: 8 unit Loratadine (Claritin) 10 mg PO DAILY PRN PRN Reason: Allergies Multivitamins/Minerals (Prosight) 1 tab PO DAILY [facility] Last Admin: 02/10/18 07:37 Dose: 1 tab Non-Formulary Medication (Sodium Bicarbonate [Sodium Bicarbonate]) 10 gm PO TID [facility] Ondansetron HCl (Zofran Odt) 4 mg PO Q6H PRN PRN Reason: Nausea Last Admin: 02/10/18 05:12 Dose: 4 mg Polysaccharide Iron Complex (Ferrex 150) 150 mg PO DAILY [facility] Last Admin: 02/10/18 07:37 Dose: 150 mg Tamsulosin HCl (Flomax) 0.4 mg PO BID [facility] Last Admin: 02/10/18 07:37 Dose: 0.4 mg Meds: Medications Generic Name Dose Route Start Last Admin Trade Name Freq PRN Reason Stop Dose Admin Acetaminophen 650 mg 02/10/18 07:38 Tylenol PO Q4H PRN Fever Hydrocodone Bitart/Acetaminophen 0.5 tab 02/10/18 01:44 02/10/18 02:54 [place] 325-5 Mg PO 0.5 tab Q4H PRN Administration PAIN Atorvastatin Calcium 40 mg 02/10/18 08:00 02/10/18 07:37 Lipitor PO 40 mg DAILY [facility] Administration Cholecalciferol 5,000 units 02/10/18 08:00 02/10/18 07:37 Vitamin D3 PO 5,000 units DAILY [facility] Administration Docusate Sodium 200 mg 02/10/18 01:33 Colace PO DAILY PRN Constipation Folic Acid 1 mg 02/10/18 08:00 02/10/18 07:37 Folic Acid PO 1 mg DAILY [facility] Administration Insulin Aspart 8 unit 02/10/18 08:00 02/10/18 07:45 Novolog SUBCUT 8 unit TID [facility] Administration Loratadine 10 mg 02/10/18 01:45 Claritin PO DAILY PRN Allergies Multivitamins/Minerals 1 tab 02/10/18 08:00 02/10/18 07:37 Prosight PO 1 tab DAILY [facility] Administration Non-Formulary Medication 10 gm 02/10/18 08:00 Sodium Bicarbonate [Sodium Bicarbonate] PO TID [facility] Ondansetron HCl 4 mg 02/10/18 02:00 02/10/18 05:12 Zofran Odt PO 4 mg Q6H PRN Administration Nausea Polysaccharide Iron Complex 150 mg 02/10/18 08:00 02/10/18 07:37 Ferrex 150 PO 150 mg DAILY [facility] Administration Tamsulosin HCl 0.4 mg 02/10/18 08:00 02/10/18 07:37 Flomax PO 0.4 mg BID DALJIT Administration Discontinued Medications Generic Name Dose Route Start Last Admin Trade Name Meño PRN Reason Stop Dose Admin Diphtheria/Tetanus/Acell Pertussis 0.5 ml 02/09/18 22:34 02/09/18 22:34 Adacel IM 02/09/18 22:35 0.5 ml .ONCE ONE Administration Sodium Chloride 1,000 mls @ 999 mls/hr 02/10/18 01:30 02/10/18 02:59 Normal Saline IV 02/10/18 02:31 999 mls/hr ASDIRECTED DALJIT Administration Lidocaine HCl Confirm 02/09/18 22:31 02/09/18 22:46 Xylocaine 1% Administered 02/09/18 22:32 Not Given Dose 20 ml .ROUTE .STK-MED ONE Lidocaine HCl 10 ml 02/09/18 22:45 02/09/18 22:50 Xylocaine-Mpf 1% INJECT 02/09/18 22:46 10 ml NOW STA Administration Departure - Departure Time of Disposition: 23:30 Disposition: Admitted As Inpatient 66 Clinical Impression: Weakness, Diarrhea, Vomiting, Dehydration - Discharge Information *PRESCRIPTION DRUG MONITORING PROGRAM REVIEWED*: Not Applicable *COPY OF PRESCRIPTION DRUG MONITORING REPORT IN PATIENT CHRISTINA: Not Applicable - Problem List & Annotations (1) Weakness SNOMED Code(s): 09585752 Code(s): R53.1 - WEAKNESS Status: Acute Current Visit: Yes (2) Laceration SNOMED Code(s): 530719875 Code(s): FNG5085 - Status: Acute Current Visit: Yes - Problem List Review Problem List Initiated/Reviewed/Updated: Yes - My Orders Last 24 Hours: My Active Orders 02/09/18 22:34 Vaccines to be Administered [RC] PER UNIT ROUTINE - Assessment/Plan Last 24 Hours: My Active Orders 02/09/18 22:34 Vaccines to be Administered [RC] PER UNIT ROUTINE Assessment:: Laceration repair of 4th and 5th right toes with sutures. Generalized weakness with fall at home tonight Dehydration CKD Gastric cancer s/p chemotherapy Diarrhea Nausea/ Vomiting Plan: Admit to hospital with IVF. Repeat labs in a.m. and monitor. Physical therapy Blood pressure on low side. BP meds on hold. Re evaluation in a.m. Daily wound monitoring of right 4/5th toes that are sutured. Remove sutures in 10 days. Use ED note as admission H&P.
[2018-02-10] MEDS ORDERED: Sodium Chloride 0.9% 1,000 ML IV SCH (01:30)
[2018-02-10] MEDS ORDERED: Docusate Sodium 100 MG Cap PO PRN (01:33)
[2018-02-10] MEDS ORDERED: Acetaminophen/HYDROcodone 325-5 MG Tab PO PRN (01:44)
[2018-02-10] MEDS ORDERED: Loratadine 10 MG Tab PO PRN (01:45)
[2018-02-10] MEDS ORDERED: Ondansetron 4 MG Tab.DIS PO PRN (02:00)
[2018-02-10] MEDS: Iron Polysaccharides Complex 150 MG Cap PO SCH (07:37)
[2018-02-10] MEDS: Tamsulosin 0.4 MG Cap.ER PO SCH ×2 (07:37→19:39)
[2018-02-10] MEDS: Beta-Carotene (Vitamin A) w/Vitamin C & E plus Minerals Tab PO SCH (07:37)
[2018-02-10] MEDS: Cholecalciferol (Vitamin D3) 1,000 Unit Tab PO SCH (07:37)
[2018-02-10] MEDS: Folic Acid 1 MG Tab PO SCH (07:37)
[2018-02-10] MEDS: atorvaSTATin 20 MG Tab PO SCH (07:37)
[2018-02-10] MEDS: Insulin Aspart 100 Units/ML 3 ML Pen SUBCUT SCH ×3 (07:45→17:38)
[2018-02-10] MEDS: Acetaminophen 325 MG Tab PO PRN ×2 (07:59→14:39)
[2018-02-10] MEDS ORDERED: SODIUM BICARBONATE 10 GM PO SCH (08:00)
[2018-02-10] MEDS: Sodium Chloride 0.9% 1,000 ML IV SCH ×3 (09:33→22:50)
[2018-02-10] MEDS ORDERED: Cyclobenzaprine 10 MG Tab PO PRN (10:22)
--- NOTE | 2018-02-10 10:27 | PCM.PN ---
- General Info Date of Service: 02/10/18 Admission Dx/Problem (Free Text): Weakness Dehydration Diarrhea S/P chemo Functional Status: Reports: Pain Controlled, Tolerating Diet. Denies: Ambulating - Review of Systems General: Reports: Weakness, Fatigue, Malaise HEENT: Reports: Other (sores in mouth) Pulmonary: Denies: Shortness of Breath Cardiovascular: Denies: Chest Pain, Lightheadedness Gastrointestinal: Reports: Nausea. Denies: Abdominal Pain, Vomiting Genitourinary: Reports: Other (voided x1 this am) Musculoskeletal: Reports: No Symptoms Skin: Reports: Pallor Neurological: Reports: Weakness - Patient Data Vitals - Most Recent: Last Vital Signs Temp 100.2 F 02/10/18 07:53 Pulse 111 H 02/10/18 07:53 Resp 16 02/10/18 07:53 BP 119/54 L 02/10/18 07:53 Pulse Ox 98 02/10/18 07:53 Weight - Most Recent: 207 lb 6.4 oz Lab Results Last 24 Hours: Laboratory Results - last 24 hr 02/10/18 02/10/18 02/10/18 Range/Units 07:00 07:00 07:33 WBC 0.4 L* (5.0-10.0) 10^3/uL RBC 2.73 L (4.50-6.00) 10^6/uL Hgb 8.0 L (14.0-18.0) g/dL Hct 24.4 L (40.0-54.0) % MCV 89.4 (82.0-94.0) fL MCH 29.3 (27.0-32.0) pg MCHC 32.8 L (33.0-38.0) g/dL RDW Coeff of Jaida 13.4 (11.0-15.0) % Plt Count 53 L (150-400) 10^3/uL Neut % (Auto) 10.9 L (35-85) % Lymph % (Auto) 45.9 (10-55) % [place] % (Auto) 18.9 H (0-16) % Eos % (Auto) 24.3 H (0-5) % Baso % (Auto) 0 (0-3) % Neut # (Auto) 0.04 L (1.80-7.00) 10^3/uL Lymph # (Auto) 0.17 L (1.00-4.80) 10^3/uL [place] # (Auto) 0.07 (0.00-0.80) 10^3/uL Eos # (Auto) 0.09 (0.00-0.45) 10^3/uL Baso # (Auto) 0.00 10^3/uL Sodium 131 L (136-145) mEq/L Potassium 4.3 (3.5-5.0) mEq/L Chloride 100 (98-106) mEq/L Carbon Dioxide 16 L (21-32) mmol/L BUN 78 H* (7-18) mg/dL Creatinine 5.1 H* (0.7-1.3) mg/dL Est Cr Clr Drug Dosing 12.52 mL/min Estimated GFR (MDRD) 11 L (>=60) mL/min Glucose 254 H (75-99) mg/dL POC Glucose 246 H (75-105) mg/dl Calcium 7.4 L (8.4-10.1) mg/dL Med Orders - Current: Current Medications Acetaminophen (Tylenol) 650 mg PO Q4H PRN PRN Reason: Fever Last Admin: 02/10/18 07:59 Dose: 650 mg Hydrocodone Bitart/Acetaminophen ([place] 325-5 Mg) 0.5 tab PO Q4H PRN PRN Reason: PAIN Last Admin: 02/10/18 02:54 Dose: 0.5 tab Atorvastatin Calcium (Lipitor) 40 mg PO DAILY [facility] Last Admin: 02/10/18 07:37 Dose: 40 mg Cholecalciferol (Vitamin D3) 5,000 units PO DAILY [facility] Last Admin: 02/10/18 07:37 Dose: 5,000 units Docusate Sodium (Colace) 200 mg PO DAILY PRN PRN Reason: Constipation Folic Acid (Folic Acid) 1 mg PO DAILY [facility] Last Admin: 02/10/18 07:37 Dose: 1 mg Sodium Chloride (Normal Saline) 1,000 mls @ 150 mls/hr IV ASDIRECTED [facility] Last Admin: 02/10/18 09:33 Dose: 75 mls/hr Insulin Aspart (Novolog) 8 unit SUBCUT TID [facility] Last Admin: 02/10/18 07:45 Dose: 8 unit Loratadine (Claritin) 10 mg PO DAILY PRN PRN Reason: Allergies Multivitamins/Minerals (Prosight) 1 tab PO DAILY [facility] Last Admin: 02/10/18 07:37 Dose: 1 tab Non-Formulary Medication (Sodium Bicarbonate [Sodium Bicarbonate]) 10 gm PO TID [facility] Ondansetron HCl (Zofran Odt) 4 mg PO Q6H PRN PRN Reason: Nausea Last Admin: 02/10/18 05:12 Dose: 4 mg Polysaccharide Iron Complex (Ferrex 150) 150 mg PO DAILY [facility] Last Admin: 02/10/18 07:37 Dose: 150 mg Tamsulosin HCl (Flomax) 0.4 mg PO BID [facility] Last Admin: 02/10/18 07:37 Dose: 0.4 mg Discontinued Medications Diphtheria/Tetanus/Acell Pertussis (Adacel) 0.5 ml IM .ONCE ONE Stop: 02/09/18 22:35 Last Admin: 02/09/18 22:34 Dose: 0.5 ml Sodium Chloride (Normal Saline) 1,000 mls @ 999 mls/hr IV ASDIRECTED [facility] Stop: 02/10/18 02:31 Last Admin: 02/10/18 02:59 Dose: 999 mls/hr Lidocaine HCl (Xylocaine 1%) Confirm Administered Dose 20 ml .ROUTE .STK-MED ONE Stop: 02/09/18 22:32 Last Admin: 02/09/18 22:46 Dose: Not Given Lidocaine HCl (Xylocaine-Mpf 1%) 10 ml INJECT NOW STA Stop: 02/09/18 22:46 Last Admin: 02/09/18 22:50 Dose: 10 ml - Exam General: Alert, Oriented HEENT: Other (mucous membranes dry, mouth and lip sores noted.) Neck: Supple Lungs: Clear to Auscultation, Normal Respiratory Effort Cardiovascular: Regular Rate, Regular Rhythm GI/Abdominal Exam: Normal Bowel Sounds, Soft, Non-Tender Extremities: Normal Inspection, No Pedal Edema Skin: Warm, Dry Neurological: No New Focal Deficit - Problem List & Annotations (1) Acute on chronic renal failure SNOMED Code(s): 699540145 Code(s): N17.9 - ACUTE KIDNEY FAILURE, UNSPECIFIED; N18.9 - CHRONIC KIDNEY DISEASE, UNSPECIFIED Status: Acute Priority: High Current Visit: Yes (2) Dehydration SNOMED Code(s): 36232246 Code(s): E86.0 - DEHYDRATION Status: Acute Priority: High Current Visit : Yes (3) Diarrhea SNOMED Code(s): 12596517 Code(s): R19.7 - DIARRHEA, UNSPECIFIED Status: Acute Priority: High Current Visit: Yes (4) Weakness SNOMED Code(s): 33924975 Code(s): R53.1 - WEAKNESS Status: Acute Priority: High Current Visit: Yes - Problem List Review Problem List Initiated/Reviewed/Updated: Yes - My Orders Last 24 Hours: My Active Orders 02/10/18 08:35 Patient Status [ADT] Routine 02/10/18 09:55 CULTURE URINE [RM] Routine Blood Culture x2 Reflex Set [OM.PC] Stat 02/10/18 09:56 CULTURE BLOOD [BC] Stat CULTURE BLOOD [BC] Stat 02/11/18 05:11 BASIC METABOLIC PANEL,BMP [CHEM] AM C-REACTIVE PROTEIN [CHEM] AM CBC WITH AUTO DIFF [HEME] AM - Assessment Assessment:: Dehydration Diarrhea Weakness Leukopenia - Plan Plan:: Patient remains weak today. Diarrhea stools have lessened. Low grade temps. Has only voided once this am. Continues to have nausea. Not eating well. Blood pressure stable this am. WBC low today at 0.4. Platelets 53. Hemoglobin 8.0. Creatinine continues to be high at 5.1. Sodium 131. Contacted Dr. Andres, oncology at [facility]. Advised to lab results. Advised to continue to treat dehydration, nausea. No other changes from oncologic standpoint. Does feel labs will start to recover. Continue IV normal saline. IV Zofran as needed for nausea. Repeat labs in am.
[2018-02-10] MEDS ORDERED: Ondansetron 4 MG/2 ML SDV ONE (10:47)
[2018-02-10] MEDS: Ondansetron 4 MG/2 ML SDV IVPUSH PRN ×2 (10:49→16:56)
[2018-02-11] MEDS ORDERED: ceFAZolin 1 GM Vial IVPUSH SCH ×2 (03:00→08:00)
--- NOTE | 2018-02-11 03:04 | PCM.SN ---
- Free Text/Narrative Note: Notified by labor mediator Dolores that 3/4 blood cultures are positive for gram positive bacteria. Will start Ancef.
[2018-02-11] MEDS: Acetaminophen 325 MG Tab PO PRN (03:39)
[2018-02-11] MEDS: Ondansetron 4 MG/2 ML SDV IVPUSH PRN (04:15)
[2018-02-11] MEDS ORDERED: Bisacodyl 10 MG Supp RECTAL ONE (05:09)
[2018-02-11] MEDS: Sodium Chloride 0.9% 1,000 ML IV SCH (05:26)
[2018-02-11] MEDS: atorvaSTATin 20 MG Tab PO SCH (08:37)
[2018-02-11] MEDS: Iron Polysaccharides Complex 150 MG Cap PO SCH (08:37)
[2018-02-11] MEDS: Tamsulosin 0.4 MG Cap.ER PO SCH (08:37)
[2018-02-11] MEDS: Folic Acid 1 MG Tab PO SCH (08:37)
[2018-02-11] MEDS: Beta-Carotene (Vitamin A) w/Vitamin C & E plus Minerals Tab PO SCH (08:38)
[2018-02-11] MEDS: Cholecalciferol (Vitamin D3) 1,000 Unit Tab PO SCH (08:38)
[2018-02-11] MEDS: Insulin Aspart 100 Units/ML 3 ML Pen SUBCUT SCH ×2 (08:38→12:00)
[2018-02-11] MEDS ORDERED: Piperacillin/Tazobactam 2.25 GM in Sodium Chloride 0.9% 50 ML IV SCH (09:00)
[2018-02-11] MEDS ORDERED: Hydrocortisone Sodium Succinate 100 MG/2 ML SDV IVPUSH SCH (09:45)
[2018-02-11] MEDS ORDERED: DOPamine/Dextrose 5%-Water 400 MG/250 ML BAG IV SCH (09:45)
[2018-02-11] MEDS ORDERED: Albumin 25% 50 ML IV SCH (10:00)
[2018-02-11] MEDS ORDERED: Levofloxacin/Dextrose 5%-Water 250 MG in Premix Bag 1 BAG IV SCH (10:30)
[2018-02-11 14:40] VITALS: BP 66/28
--- NOTE | 2018-02-11 21:16 | PCM.DCSUM1 ---
Discharge Summary - Hospital Course Free Text/Narrative:: Patient presented to ER x2 with dehydration and weakness. Had been experiencing diarrhea as well. Patient at home had fallen when trying to take his clothing off for the night and was unable to get up unassisted. Had received 5 days of chemo approximately 8 days ago and has not felt well since. Was in on Saturday as well for IV fluids. Creatinine in the ER was 5.1, up mildly from his norm in the 4.5 range. Has had a fistula put in due to ongoing issues with kidney failure. Has a history of gastric carcinoma Diagnosis: Stroke: No Modified [place] Scale: No Symptoms at All Modified [place] Scale Score: 0 - Discharge Data Discharge Date: 02/11/18 Discharge Disposition: DC/Tfer to Acute Hospital 02 Condition: Fair - Discharge Diagnosis/Problem(s) (1) Acute on chronic renal failure SNOMED Code(s): 463643597 ICD Code: N17.9 - ACUTE KIDNEY FAILURE, UNSPECIFIED; N18.9 - CHRONIC KIDNEY DISEASE, UNSPECIFIED Status: Acute Priority: High (2) Dehydration SNOMED Code(s): 95828734 ICD Code: E86.0 - DEHYDRATION Status: Acute Priority: High (3) Diarrhea SNOMED Code(s): 15724083 ICD Code: R19.7 - DIARRHEA, UNSPECIFIED Status: Acute Priority: High (4) Weakness SNOMED Code(s): 17100020 ICD Code: R53.1 - WEAKNESS Status: Acute Priority: High - Patient Summary/Data Complications: hypotension Consults: Consultations 02/10/18 03:03 Consult to Physical Therapy [PT Evaluation and Treatment] [CONS] Routine Hospital Course: Patient was admitted for dehydration, diarrhea and weakness. Had fallen at home. Received chemotherapy 1 week ago for gastric cancer. Yesterday, patient was alert, blood pressure stable. Creatinine did not improve and was noted ongoing at 5.1. WBC 0.4, platelets 53, hemoglobin 8.0. Consulted with Dr. Andres , oncology at [facility]. Recommended IV hydration and that increase in creatinine likely related to dehydration as his chemo regimen 5FU likely not the cause. Today, patient more restless, pale, more short of breath. Blood pressure low 60/30. Blood cultures 3/4 reported out at 3 am with gram positive organism so Ancef had been started. This am, changed to Zosyn and Vancomycin. Urine culture then noted to be positive for gram negative rods and gram positive cocci. Blood cultures now reported as gram negative rods. Due to change in status, blood pressure and sepsis, contacted [facility] and spoke with Dr. Zhang, public school teacher. Recommended starting Solu Cortef 100 mg IV, Albumin 5 %, Levaquin and Dopamine. Patient did have response to this, blood pressure improved, more alert, color improved. Family at bedside and aware of concerns. Life flight transferred arranged. Dr. Zhang accepting physician Patient and family aware of risks and benefits of transfer. Risks of transfer include worsening status, vehicular crash and even . Benefits of transfer include more specialized care at tertiary facility. Risks of non transfer include worsening status and possible . Benefits of non transfer include care close to home. Family agrees with transfer and verbalizes understanding. - Discharge Plan *PRESCRIPTION DRUG MONITORING PROGRAM REVIEWED*: Not Applicable *COPY OF PRESCRIPTION DRUG MONITORING REPORT IN PATIENT CHRISTINA: Not Applicable Home Medications: Home Meds Folic Acid 1 mg PO DAILY 01/14/14 [History] Furosemide 40 mg PO Q48H 01/14/14 [History] Insulin Detemir [Levemir] 8 units SUBCUT BEDTIME 01/14/14 [History] atorvaSTATin [Lipitor] 40 mg PO DAILY 01/14/14 [History] Docusate Sodium [Colace] 200 mg PO DAILY PRN 07/20/17 [History] Fexofenadine [Cece] 180 mg PO ASDIRECTED PRN 07/20/17 [History] Insulin Aspart [NovoLOG] 8 unit SQ TID 07/20/17 [History] Iron Ps Cmplx/Vit B12/Fa [Poly-Iron 150 Forte] 1 each PO DAILY 07/20/17 [History ] Sodium Bicarbonate 10 gm PO TID 07/20/17 [History] Tamsulosin [Flomax] 0.4 mg PO BID 07/20/17 [History] amLODIPine Besylate [Amlodipine Besylate] 5 mg PO DAILY 07/20/17 [History] Cholecalciferol (Vitamin D3) [Vitamin D3] 5,000 unit PO DAILY 08/14/17 [History] Lutein/Minerals/Vit A,C & E [Ocuvite] 1 tab PO DAILY 08/14/17 [History] Vilku-W-Oylyapjxlgbxc [Beano] 1 tab PO BID PRN 02/07/18 [History] Hydrocodone/Acetaminophen [Hydrocodon-Acetaminoph 2.5-325] 1 tab PO Q4H PRN [History] Ondansetron HCl [Zofran] 4 mg PO Q6H PRN 02/09/18 [History] Forms: ED Department Discharge - Discharge Summary/Plan Comment DC Time >30 min.: Yes Discharge Summary/Plan Comment: Transfer to [facility] Time with patient 60 minutes Time for transfer arrangements 30 minutes Time for orders and documentation 30 minutes - General Info Date of Service: 02/11/18 Admission Dx/Problem (Free Text: Weakness Dehydration Diarrhea S/P chemo Functional Status: Reports: Pain Controlled, Urinating (has only voided 550 ml out since admission). Denies: Tolerating Diet, Ambulating - Review of Systems General: Reports: Fever, Weakness, Fatigue, Malaise HEENT: Reports: Other (mouth sores) Pulmonary: Reports: Shortness of Breath. Denies: Cough Cardiovascular: Denies: Chest Pain, Edema, Lightheadedness Gastrointestinal: Reports: Abdominal Pain, Nausea, Vomiting Musculoskeletal: Reports: No Symptoms Skin: Reports: Pallor Neurological: Reports: Weakness - Patient Data Vitals - Most Recent: Last Vital Signs Temp 99.1 F 02/11/18 08:00 Pulse 90 02/11/18 09:54 Resp 22 H 02/11/18 08:00 BP 73/35 L 02/11/18 09:54 Pulse Ox 98 02/11/18 08:00 Weight - Most Recent: 207 lb 6.4 oz I&O - Last 24 hours: Intake & Output 02/11/18 02/11/18 02/11/18 06:59 14:59 22:59 Intake Total 1155 Output Total 500 Balance 655 Lab Results - Last 24 hrs: Laboratory Results - last 24 hr 02/11/18 02/11/18 02/11/18 Range/Units 06:46 06:46 07:53 WBC 0.3 L* (5.0-10.0) 10^3/uL RBC 2.81 L (4.50-6.00) 10^6/uL Hgb 8.2 L (14.0-18.0) g/dL Hct 25.1 L (40.0-54.0) % MCV 89.3 (82.0-94.0) fL MCH 29.2 (27.0-32.0) pg MCHC 32.7 L (33.0-38.0) g/dL RDW Coeff of Jaida 13.5 (11.0-15.0) % Plt Count 63 L (150-400) 10^3/uL Add Manual Diff Yes Neutrophils % (Manual) 4 L (35-85) % Band Neutrophils % 32 H (0-5) % Lymphocytes % (Manual) 28 (21-55) % Monocytes % (Manual) 28 H (2-12) % Metamyelocytes % 8 % Absolute Neutrophils 0.11 L (1.80-7.00) 10^3/uL Lymphocytes # (Manual) 0.08 L (1.00-4.80) 10^3/uL Monocytes # (Manual) 0.08 (0.00-0.80) 10^3/uL Sodium 134 L (136-145) mEq/L Potassium 4.4 (3.5-5.0) mEq/L Chloride 102 (98-106) mEq/L Carbon Dioxide 12 L (21-32) mmol/L BUN 91 H* (7-18) mg/dL Creatinine 5.7 H* (0.7-1.3) mg/dL Est Cr Clr Drug Dosing 11.21 mL/min Estimated GFR (MDRD) 10 L (>=60) mL/min Glucose 204 H (75-99) mg/dL POC Glucose 205 H (75-105) mg/dl Calcium 7.3 L (8.4-10.1) mg/dL C-Reactive Protein 39.2 H (0.2-0.8) mg/dL DWIGHT Results - Last 24 hrs: Microbiology 02/10/18 10:15 Aerobic Blood Culture - Preliminary Blood - Venous NO GROWTH AFTER 1 DAY Anaerobic Blood Culture - Preliminary Gram Negative Rods 02/10/18 10:20 Aerobic Blood Culture - Preliminary Blood - Venous - Lab Draw Gram Negative Rods Anaerobic Blood Culture - Preliminary Gram Negative Rods 02/10/18 14:52 Urine Culture - Preliminary Urine, Clean Catch Gram Negative Rods Gram Positive Cocci Med Orders - Current: Current Medications Discontinued Medications Acetaminophen (Tylenol) 650 mg PO Q4H PRN PRN Reason: Fever Last Admin: 02/11/18 03:39 Dose: 650 mg Hydrocodone Bitart/Acetaminophen ([place] 325-5 Mg) 0.5 tab PO Q4H PRN PRN Reason: PAIN Last Admin: 02/10/18 02:54 Dose: 0.5 tab Atorvastatin Calcium (Lipitor) 40 mg PO DAILY [facility] Last Admin: 02/11/18 08:37 Dose: Not Given Bisacodyl (Dulcolax) 10 mg RECTAL ONETIME ONE Stop: 02/11/18 05:10 Last Admin: 02/11/18 05:33 Dose: 10 mg Cefazolin Sodium (Ancef) 1 gm IVPUSH Q6H [facility] Last Admin: 02/11/18 03:38 Dose: 1 gm Cefazolin Sodium (Ancef) 1 gm IVPUSH Q6H [facility] Last Admin: 02/11/18 08:34 Dose: Not Given Cholecalciferol (Vitamin D3) 5,000 units PO DAILY [facility] Last Admin: 02/11/18 08:38 Dose: Not Given Cyclobenzaprine HCl (Flexeril) 5 mg PO TID PRN PRN Reason: Other Last Admin: 02/10/18 10:48 Dose: 5 mg Diphtheria/Tetanus/Acell Pertussis (Adacel) 0.5 ml IM .ONCE ONE Stop: 02/09/18 22:35 Last Admin: 02/09/18 22:34 Dose: 0.5 ml Docusate Sodium (Colace) 200 mg PO DAILY PRN PRN Reason: Constipation Folic Acid (Folic Acid) 1 mg PO DAILY [facility] Last Admin: 02/11/18 08:37 Dose: Not Given Hydrocortisone Sodium Succinate (Solu-Cortef) 100 mg IVPUSH Q6H [facility] Last Admin: 02/11/18 09:53 Dose: 100 mg Sodium Chloride (Normal Saline) 1,000 mls @ 999 mls/hr IV ASDIRECTED [facility] Stop: 02/10/18 02:31 Last Admin: 02/10/18 02:59 Dose: 999 mls/hr Sodium Chloride (Normal Saline) 1,000 mls @ 150 mls/hr IV ASDIRECTED [facility] Last Admin: 02/11/18 05:26 Dose: 150 mls/hr Piperacillin Sod/Tazobactam (Sod 2.25 gm/ Sodium Chloride) 50 mls @ 100 mls/hr IV Q6H [facility] Last Admin: 02/11/18 09:07 Dose: 100 mls/hr Vancomycin HCl 1 gm/ Sodium (Chloride) 250 mls @ 166.667 mls/hr IV Q48H [facility] Last Admin: 02/11/18 11:06 Dose: 166.667 mls/hr Albumin Human (Flexbumin 25%) 50 mls @ 100 mls/hr IV ASDIRECTED [facility] Last Admin: 02/11/18 10:04 Dose: 100 mls/hr Dopamine HCl/Dextrose (Dopamine In D5w 400 Mg/250 Ml) 400 mg in 250 mls @ 7.056 mls/hr IV TITRATE DALJIT; Protocol Last Admin: 02/11/18 09:54 Dose: 2 mcg/kg/min, 7.056 mls/hr Levofloxacin/Dextrose 250 mg/ (Premix) 50 mls @ 50 mls/hr IV Q24H [facility] Last Admin: 02/11/18 10:28 Dose: 50 mls/hr Insulin Aspart (Novolog) 8 unit SUBCUT TID [facility] Last Admin: 02/10/18 16:28 Dose: Not Given Insulin Aspart (Novolog) 8 unit SUBCUT TIDMEALS [facility] Last Admin: 02/11/18 12:00 Dose: Not Given Lidocaine HCl (Xylocaine 1%) Confirm Administered Dose 20 ml .ROUTE .STK-MED ONE Stop: 02/09/18 22:32 Last Admin: 02/09/18 22:46 Dose: Not Given Lidocaine HCl (Xylocaine-Mpf 1%) 10 ml INJECT NOW STA Stop: 02/09/18 22:46 Last Admin: 02/09/18 22:50 Dose: 10 ml Loratadine (Claritin) 10 mg PO DAILY PRN PRN Reason: Allergies Multivitamins/Minerals (Prosight) 1 tab PO DAILY [facility] Last Admin: 02/11/18 08:38 Dose: Not Given Non-Formulary Medication (Sodium Bicarbonate [Sodium Bicarbonate]) 10 gm PO TID [facility] Ondansetron HCl (Zofran Odt) 4 mg PO Q6H PRN PRN Reason: Nausea Last Admin: 02/10/18 05:12 Dose: 4 mg Ondansetron HCl (Zofran) 4 mg IVPUSH Q6H PRN PRN Reason: Nausea/Vomiting Last Admin: 02/11/18 04:15 Dose: 4 mg Ondansetron HCl (Zofran) Confirm Administered Dose 4 mg .ROUTE .STK-MED ONE Stop: 02/10/18 10:48 Last Admin: 02/10/18 11:43 Dose: Not Given Polysaccharide Iron Complex (Ferrex 150) 150 mg PO DAILY [facility] Last Admin: 02/11/18 08:37 Dose: Not Given Tamsulosin HCl (Flomax) 0.4 mg PO BID [facility] Last Admin: 02/11/18 08:37 Dose: Not Given Vancomycin HCl (Pharmacy To Dose - Vancomycin) 1 dose .XX ASDIRECTED [facility] - Exam General: Reports: Alert, Oriented (was confused earlier this am, more oriented now), Cooperative HEENT: Reports: Mucous Membr. Moist/[place] Neck: Reports: Supple Lungs: Reports: Decreased Breath Sounds Cardiovascular: Reports: Irregular Rhythm GI/Abdominal Exam: Distended, Tender, Abnormal Bowel Sounds Extremities: Normal Inspection, No Pedal Edema Skin: Reports: Warm, Dry Neurological: Reports: No New Focal Deficit
== END 2018-02-11 12:30 | DRG 682 ==
LOC: CC.ED 22:28 → CC.MS 02-10 01:02
PROVIDERS: ADMIT Nurse Practitioner Family; ATTEND Family Medicine
PROC: 0JQQ3ZZ Repair Right Foot Subcutaneous Tissue and Fascia, Percutaneous Approach (ICD-10-PCS; principal; 2018-02-09)
PROC: 3E0134Z Introduction of Serum, Toxoid and Vaccine into Subcutaneous Tissue, Percutaneous Approach (ICD-10-PCS; 2018-02-09)
DX: N17.9 Acute kidney failure, unspecified (principal); A41.9 Sepsis, unspecified organism; C16.9 Malignant neoplasm of stomach, unspecified; E86.0 Dehydration; S91.114A Laceration without foreign body of right lesser toe(s) without damage to nail, initial encounter; W18.30XA Fall on same level, unspecified, initial encounter; E11.22 Type 2 diabetes mellitus with diabetic chronic kidney disease; I12.9 Hypertensive chronic kidney disease with stage 1 through stage 4 chronic kidney disease, or unspecified chronic kidney disease; N18.9 Chronic kidney disease, unspecified; H54.7 Unspecified visual loss; K21.9 Gastro-esophageal reflux disease without esophagitis; K59.09 Other constipation; Z79.899 Other long term (current) drug therapy; N40.0 Benign prostatic hyperplasia without lower urinary tract symptoms; M19.90 Unspecified osteoarthritis, unspecified site; Z92.21 Personal history of antineoplastic chemotherapy; M54.9 Dorsalgia, unspecified; E53.8 Deficiency of other specified B group vitamins; E78.00 Pure hypercholesterolemia, unspecified; G89.29 Other chronic pain; Z79.4 Long term (current) use of insulin; D70.1 Agranulocytosis secondary to cancer chemotherapy; E87.5 Hyperkalemia; R19.7 Diarrhea, unspecified; R11.2 Nausea with vomiting, unspecified; Z88.8 Allergy status to other drugs, medicaments and biological substances; Z79.84 Long term (current) use of oral hypoglycemic drugs
CPT/HCPCS: 12001; 36415; 80053; 85025; 90471; 90715; 96360; 99284 ×2; 99285; A9270 ×3; J7030; 80048; 81001; 82962; 86140; 87040; 87077; 87086; 87088; 87186; 97162-GP; J0690; J1265; J1720; J1815-GY; J1956; J2405; J2543; J3370; J7050; P9047

== ENCOUNTER 2018-03-11 12:14 | Inpatient (IN) | payer MEDICARE, BC ==
[2018-03-11] MEDS ORDERED: Docusate Sodium 100 MG Cap PO PRN (14:35)
[2018-03-11] MEDS ORDERED: Ceres/Mineral Oil/Petrolatum/Wool Alcohol Cream 113 GM Tube TOP PRN (14:35)
[2018-03-11] MEDS ORDERED: Levalbuterol HCl 1.25 MG/3 ML Neb NEB PRN (14:35)
[2018-03-11] MEDS ORDERED: Cyanocobalamin (Vitamin B12) 1,000 MCG/ML SDV IM SCH (14:45)
[2018-03-11] MEDS: Acetaminophen/oxyCODONE 325-5 MG Tab PO PRN (16:06)
[2018-03-11] MEDS: Pantoprazole 40 MG Tab.CR PO SCH (16:07)
[2018-03-11] MEDS ORDERED: Insulin Aspart 100 Units/ML 3 ML Pen SUBCUT SCH (17:30)
[2018-03-11] MEDS ORDERED: INSULIN ASPART SQ SCH (20:00)
[2018-03-11] MEDS: atorvaSTATin 20 MG Tab PO SCH (20:21)
--- NOTE | 2018-03-11 21:39 | PCM.HP ---
H&P History of Present Illness - General Date of Service: 03/11/18 Admit Problem/Dx: Admission Diagnosis/Problem Admission Diagnosis/Problem Pancytopenia due to chemotherapy Source of Information: Patient, Old Records History Limitations: Reports: No Limitations - History of Present Illness Initial Comments - Free Text/Narative: Patient admitted swing bed from [facility] in [place] after lengthy hospital stay of septic shock. Patient had been admitted here originally on February 10 for weakness and a fall s/p chemo. Patient had been experiencing increasing weakness after receiving 5 rounds of 5FU. Creatinine elevated at 5.1 , oncology recommended IV hydration. On day 1 after admission, patient became hypotensive, lethargic and more short of breath. Was transferred to [facility] due to septic shock. While there, patient had worsening status, was intubated and required multiple medications for his blood pressure and infection. Had initially had distention of his abdomen, felt related to fluid overload and not his anastomosis. He had worsening ischemia of his right 5th toe, a stent was placed in his leg and eventually the toe was amputated. Was placed on Plavix and ASA for the arterial blockage as well as development of atrial fib. Unfortunately, patient developed a GI bleed, required 6 units of blood. While doing laparoscope, did biopsy his stomach and found no further evidence of his gastric cancer at that time. Plavix and ASA have now been held. Patient is currently receiving dialysis 3 times per week. He did have infiltration of the fistula in his arm so has a Nichole's catheter present. In addition, patient did develop C diff that he was treated for as well. Currently has decided will no longer receive any further chemo. Will continue with dialysis 3 times per week. Physical therapy for strengthening. Onset of Symptoms: Reports: Gradual Duration of Symptoms: Reports: Week(s): Location: Reports: Generalized Improves with: Reports: Rest R Toe Pain Score (Numeric/FACES): 7 - Related Data Allergies/Adverse Reactions: Allergies Allergy/AdvReac Type Severity Reaction Status Date / Time metoclopramide [From Reglan] Allergy Headache Verified 03/11/18 13:41 Home Medications: Home Meds Folic Acid 1 mg PO DAILY 01/14/14 [History] atorvaSTATin [Lipitor] 40 mg PO DAILY 01/14/14 [History] Insulin Aspart [NovoLOG] 2 - 8 unit SQ QIDACANDBED 07/20/17 [History] Tamsulosin [Flomax] 0.8 mg PO DAILY 07/20/17 [History] Cholecalciferol (Vitamin D3) [Vitamin D3] 5,000 unit PO DAILY 08/14/17 [History] Lutein/Minerals/Vit A,C & E [Ocuvite] 1 tab PO DAILY 08/14/17 [History] Iron Polysaccharides Complex [Ferrex 150] 150 mg PO DAILY 03/11/18 [History] Past Medical History HEENT History: Reports: Cataract, Impaired Vision Cardiovascular History: Reports: High Cholesterol, Hypertension Gastrointestinal History: Reports: Chronic Constipation, GERD Other Gastrointestinal History: gastric cancer Genitourinary History: Reports: BPH, Chronic Renal Insuffiency, Dialysis, Renal Disease Musculoskeletal History: Reports: Arthritis, Back Pain, Chronic, Other (See Below) Other Musculoskeletal History: compression fractures Endocrine/Metabolic History: Reports: Diabetes, Type II, IDDM Hematologic History: Reports: B12 Deficiency Immunologic History: Reports: Immunosuppression Oncologic (Cancer) History: Reports: Other (See Below) Other Oncologic History: Gastric - Past Surgical History HEENT Surgical History: Reports: Cataract Surgery Cardiovascular Surgical History: Reports: Other (See Below) Other Cardiovascular Surgeries/Procedures: FEMORAL STENT, R ARM FISTULA, L CHEST PORT, R CHEST NICHOLE DIALYSIS CATHETER GI Surgical History: Reports: Appendectomy, Cholecystectomy, EGD, Other (See Below) Other GI Surgeries/Procedures: ULCERS CLIPPED Male Surgical History: Reports: None Musculoskeletal Surgical History: Reports: Amputation, Hip Replacement, Other ( See Below) Other Musculoskeletal Surgeries/Procedures:: elbow surgery. vertebralplasty X3. R DISTAL TOE AMPUTATION Oncologic Surgical History: Reports: None Social & Family History - Family History Family Medical History: Noncontributory - Caffeine Use Caffeine Use: Reports: Coffee H&P Review of Systems - Review of Systems: Review Of Systems: See Below General: Reports: Malaise, Weakness, Fatigue HEENT: Reports: Eye Pain (eyes burn at times, vision is now blurred). Denies: Sore Throat, Vertigo Pulmonary: Denies: Shortness of Breath, Cough Cardiovascular: Denies: Chest Pain, Edema, Lightheadedness Gastrointestinal: Denies: Abdominal Pain, Diarrhea, Hematochezia, Melena, Nausea , Vomiting Genitourinary: Reports: Other (does continue to void in small amounts) Musculoskeletal: Reports: Leg Pain (pain in right foot) Skin: Reports: Other (peeling skin to feet, been occurring since chemo) Psychiatric: Reports: No Symptoms Neurological: Reports: Weakness Exam - Exam Exam: See Below - Vital Signs Vital Signs: Last Vital Signs Temp 97.6 F 03/11/18 20:00 Pulse 85 03/11/18 20:00 Resp 18 03/11/18 20:00 BP 130/58 L 03/11/18 20:00 Pulse Ox 97 03/11/18 20:00 Weight: 198 lb 11.2 oz - Exam General: Alert, Oriented HEENT: Conjunctiva Clear, Mucosa Moist & [place], Posterior Pharynx Clear Neck: Supple Lungs: Decreased Breath Sounds Cardiovascular: Irregular Rhythm GI/Abdominal Exam: Normal Bowel Sounds, Soft, Non-Tender Extremities: Other (patient has intact bandage to right foot at amputation site. Peeling skin noted to soles of feet bilaterally) Skin: Other (intact sutures to right foot, peeling skin on feet) Neuro Extensive - Mental Status: Alert, Oriented x3, Memory Loss-Recent Events Psychiatric: Alert - Patient Data Lab Results Last 24 hrs: Laboratory Results - last 24 hr 03/11/18 03/11/18 Range/Units 17:37 21:29 POC Glucose 130 H 21 L* (75-105) mg/dl *Q Meaningful Use (ADM) - VTE *Q VTE Anticoagulation Contraindications: Treatment Not Tolerated - Problem List (1) Palliative care patient SNOMED Code(s): 245332753 ICD Code: Z51.5 - ENCOUNTER FOR PALLIATIVE CARE Status: Acute Priority: High Current Visit: Yes (2) Acute on chronic renal failure SNOMED Code(s): 879303570 ICD Code: N17.9 - ACUTE KIDNEY FAILURE, UNSPECIFIED; N18.9 - CHRONIC KIDNEY DISEASE, UNSPECIFIED Status: Acute Priority: High Current Visit: Yes Qualifiers: Chronic kidney disease stage: on chronic dialysis (3) Anemia SNOMED Code(s): 868572024 ICD Code: D64.9 - ANEMIA, UNSPECIFIED Status: Acute Priority: High Current Visit: Yes Qualifiers: Other causes of anemia: acute posthemorrhagic (4) Gastric cancer Status: Acute Priority: High Current Visit: Yes Qualifiers: Malignant neoplasm of stomach location: unspecified location Qualified Code (s): C16.9 - Malignant neoplasm of stomach, unspecified (5) Weakness SNOMED Code(s): 52596890 ICD Code: R53.1 - WEAKNESS Status: Acute Priority: High Current Visit: Yes Problem List Initiated/Reviewed/Updated: Yes Orders Last 24hrs: Active Orders 24 hr Category Date Time Status Patient Status [ADT] Routine ADT 03/11/18 14:35 Active Communication Order [RC] ROUTINE Care 03/11/18 14:35 Active Oxygen Therapy [RC] .PRN Care 03/11/18 14:35 Active RT Aerosol Therapy [RC] .PRN Care 03/11/18 14:43 Active Up With Assistance [RC] .PRN Care 03/11/18 14:35 Active Vital Signs [RC] Care 03/11/18 14:35 Active Wound Care [RC] Care 03/11/18 14:35 Active PT Evaluation and Treatment [CONS] Routine Cons 03/11/18 14:35 Active Consistent Carbohydrate Diet [DIET] Diet 03/11/18 Dinner Active Acetaminophen [Tylenol] Med 03/11/18 14:35 Active 650 mg PO Q6H PRN Acetaminophen/oxyCODONE [Percocet 325-5 MG] Med 03/11/18 14:35 Active 1 tab PO Q6H PRN Beta-Carotene(A) w/C & E/Min [Prosight] Med 03/12/18 08:00 Active 1 tab PO DAILY [place]/Min Oil/[place]/Wool Alcoh [Eucerin Creme] Med 03/11/18 14:35 Active See Dose Instructions TOP QID PRN Cholecalciferol (Vitamin D3) [Vitamin D3] Med 03/12/18 08:00 Active 5,000 units PO DAILY Cyanocobalamin (Vitamin B12) [Vitamin B12] Med 03/11/18 14:45 Active 1,000 mcg IM SEECOMMENT Docusate Sodium [Colace] Med 03/11/18 14:35 Active 100 mg PO BID PRN Folic Acid Med 03/12/18 08:00 Active 1 mg PO DAILY Insulin Aspart [NovoLOG] Med 03/12/18 08:00 Active 10 unit SUBCUT DAILY@0800 Insulin Aspart [NovoLOG] Med 03/12/18 12:00 Active 12 unit SUBCUT DAILY@1200 Insulin Aspart [NovoLOG] Med 03/11/18 17:30 Active 14 unit SUBCUT DAILY@1730 Iron Polysaccharides Complex [Ferrex 150] Med 03/12/18 08:00 Active 150 mg PO DAILY Levalbuterol HCl [Xopenex] Med 03/11/18 14:35 Active 0.63 mg NEB Q4H PRN Pantoprazole [ProTONIX] Med 03/11/18 17:00 Active 40 mg PO BIDAC Tamsulosin [Flomax] Med 03/12/18 08:00 Active 0.8 mg PO DAILY atorvaSTATin [Lipitor] Med 03/11/18 20:00 Active 40 mg PO BEDTIME Anticoagulation Contraindications VTE [AST] Per Unit Oth 03/11/18 14:35 Ordered Routine Resuscitation Status Routine Resus Stat 03/11/18 14:35 Ordered Medication Orders Acetaminophen (Tylenol) 650 mg PO Q6H PRN PRN Reason: Pain (Mild 1-3)/fever Atorvastatin Calcium (Lipitor) 40 mg PO BEDTIME [facility] Last Admin: 03/11/18 20:21 Dose: 40 mg Cholecalciferol (Vitamin D3) 5,000 units PO DAILY [facility] Cyanocobalamin (Vitamin B12) 1,000 mcg IM SEECOMMENT [facility] Docusate Sodium (Colace) 100 mg PO BID PRN PRN Reason: Constipation Folic Acid (Folic Acid) 1 mg PO DAILY [facility] Insulin Aspart (Novolog) 10 unit SUBCUT DAILY@0800 [facility] Insulin Aspart (Novolog) 12 unit SUBCUT DAILY@1200 [facility] Insulin Aspart (Novolog) 14 unit SUBCUT DAILY@1730 [facility] Last Admin: 03/11/18 17:38 Dose: 14 units Levalbuterol HCl (Xopenex) 0.63 mg NEB Q4H PRN PRN Reason: Wheezing Multi-Ingredient Ointment (Eucerin Creme) 0 gm TOP QID PRN PRN Reason: dry skin Multivitamins/Minerals (Prosight) 1 tab PO DAILY [facility] Oxycodone/Acetaminophen (Percocet 325-5 Mg) 1 tab PO Q6H PRN PRN Reason: Pain (moderate 4-6) Last Admin: 03/11/18 16:06 Dose: 1 tab Pantoprazole Sodium (Protonix) 40 mg PO BIDAC [facility] Last Admin: 03/11/18 16:07 Dose: 40 mg Polysaccharide Iron Complex (Ferrex 150) 150 mg PO DAILY [facility] Tamsulosin HCl (Flomax) 0.8 mg PO DAILY [facility] Assessment/Plan Comment:: ADmit swing bed. Continue physical therapy for strengthening. Will continue dialysis 3 days per week. No anticoagulation at this time due to recent history of GI Bleed, will be reevaluated by cardiovascular in March due to risk of clot related to recent stent in RLE and history of atrial fib. Glucoscan QID. Continue to monitor blood pressures BID.
[2018-03-11] MEDS ORDERED: Glucagon,Human Recombinant 1 MG Vial ONE (21:42)
[2018-03-11] MEDS ORDERED: Glucagon,Human Recombinant 1 MG Vial IM ONE (21:46)
[2018-03-12] MEDS: Acetaminophen 325 MG Tab PO PRN ×2 (04:39→19:36)
[2018-03-12] MEDS: Pantoprazole 40 MG Tab.CR PO SCH ×2 (07:47→17:01)
[2018-03-12] MEDS: Tamsulosin 0.4 MG Cap.ER PO SCH (07:47)
[2018-03-12] MEDS: Beta-Carotene (Vitamin A) w/Vitamin C & E plus Minerals Tab PO SCH (07:47)
[2018-03-12] MEDS: Iron Polysaccharides Complex 150 MG Cap PO SCH (07:47)
[2018-03-12] MEDS: Cholecalciferol (Vitamin D3) 1,000 Unit Tab PO SCH (07:47)
[2018-03-12] MEDS: Folic Acid 1 MG Tab PO SCH (07:47)
[2018-03-12] MEDS ORDERED: Insulin Aspart 100 Units/ML 3 ML Pen SUBCUT SCH ×2 (08:00→12:00)
[2018-03-12] MEDS: Insulin Aspart 100 Units/ML 3 ML Pen SUBCUT SCH ×2 (12:00→17:28)
[2018-03-12] MEDS: atorvaSTATin 20 MG Tab PO SCH (19:36)
[2018-03-13] MEDS: Cholecalciferol (Vitamin D3) 1,000 Unit Tab PO SCH (07:24)
[2018-03-13] MEDS: Tamsulosin 0.4 MG Cap.ER PO SCH (07:24)
[2018-03-13] MEDS: Folic Acid 1 MG Tab PO SCH (07:25)
[2018-03-13] MEDS: Pantoprazole 40 MG Tab.CR PO SCH ×2 (07:25→17:40)
[2018-03-13] MEDS: Iron Polysaccharides Complex 150 MG Cap PO SCH (07:25)
[2018-03-13] MEDS: Beta-Carotene (Vitamin A) w/Vitamin C & E plus Minerals Tab PO SCH (07:25)
[2018-03-13] MEDS: Insulin Aspart 100 Units/ML 3 ML Pen SUBCUT SCH ×3 (07:29→17:40)
[2018-03-13] MEDS: atorvaSTATin 20 MG Tab PO SCH (19:32)
[2018-03-14] MEDS: Pantoprazole 40 MG Tab.CR PO SCH ×2 (06:48→16:59)
[2018-03-14] MEDS: Iron Polysaccharides Complex 150 MG Cap PO SCH (07:30)
[2018-03-14] MEDS: Tamsulosin 0.4 MG Cap.ER PO SCH (07:30)
[2018-03-14] MEDS: Folic Acid 1 MG Tab PO SCH (07:30)
[2018-03-14] MEDS: Beta-Carotene (Vitamin A) w/Vitamin C & E plus Minerals Tab PO SCH (07:30)
[2018-03-14] MEDS: Cholecalciferol (Vitamin D3) 1,000 Unit Tab PO SCH (07:31)
[2018-03-14] MEDS: Insulin Aspart 100 Units/ML 3 ML Pen SUBCUT SCH ×3 (07:36→17:34)
[2018-03-14] MEDS: Piperacillin/Tazobactam 2.25 GM in Sodium Chloride 0.9% 50 ML IV SCH ×2 (11:12→19:58)
[2018-03-14] MEDS ORDERED: Cyanocobalamin (Vitamin B12) 1,000 MCG/ML SDV IM ONE (13:00)
[2018-03-14] MEDS: atorvaSTATin 20 MG Tab PO SCH (19:58)
[2018-03-15] MEDS: Pantoprazole 40 MG Tab.CR PO SCH ×2 (07:11→17:55)
[2018-03-15] MEDS: Iron Polysaccharides Complex 150 MG Cap PO SCH (07:57)
[2018-03-15] MEDS: Cholecalciferol (Vitamin D3) 1,000 Unit Tab PO SCH (07:58)
[2018-03-15] MEDS: Folic Acid 1 MG Tab PO SCH (07:58)
[2018-03-15] MEDS: Beta-Carotene (Vitamin A) w/Vitamin C & E plus Minerals Tab PO SCH (07:58)
[2018-03-15] MEDS: Piperacillin/Tazobactam 2.25 GM in Sodium Chloride 0.9% 50 ML IV SCH ×2 (07:59→19:42)
[2018-03-15] MEDS: Tamsulosin 0.4 MG Cap.ER PO SCH (08:01)
[2018-03-15] MEDS: Insulin Aspart 100 Units/ML 3 ML Pen SUBCUT SCH ×3 (08:02→17:56)
[2018-03-15] MEDS: Acetaminophen 325 MG Tab PO PRN (19:41)
[2018-03-15] MEDS: atorvaSTATin 20 MG Tab PO SCH (19:41)
[2018-03-16] MEDS: Pantoprazole 40 MG Tab.CR PO SCH ×2 (07:43→17:23)
[2018-03-16] MEDS: Iron Polysaccharides Complex 150 MG Cap PO SCH (07:43)
[2018-03-16] MEDS: Tamsulosin 0.4 MG Cap.ER PO SCH (07:43)
[2018-03-16] MEDS: Cholecalciferol (Vitamin D3) 1,000 Unit Tab PO SCH (07:44)
[2018-03-16] MEDS: Piperacillin/Tazobactam 2.25 GM in Sodium Chloride 0.9% 50 ML IV SCH ×2 (07:44→19:35)
[2018-03-16] MEDS: Folic Acid 1 MG Tab PO SCH (07:44)
[2018-03-16] MEDS: Beta-Carotene (Vitamin A) w/Vitamin C & E plus Minerals Tab PO SCH (07:44)
[2018-03-16] MEDS: Insulin Aspart 100 Units/ML 3 ML Pen SUBCUT SCH ×3 (07:54→17:24)
[2018-03-16] MEDS: atorvaSTATin 20 MG Tab PO SCH (19:35)
[2018-03-17] MEDS: Pantoprazole 40 MG Tab.CR PO SCH ×2 (06:43→17:37)
[2018-03-17] MEDS: Piperacillin/Tazobactam 2.25 GM in Sodium Chloride 0.9% 50 ML IV SCH ×2 (08:23→20:02)
[2018-03-17] MEDS: Beta-Carotene (Vitamin A) w/Vitamin C & E plus Minerals Tab PO SCH (08:27)
[2018-03-17] MEDS: Tamsulosin 0.4 MG Cap.ER PO SCH (08:27)
[2018-03-17] MEDS: Folic Acid 1 MG Tab PO SCH (08:27)
[2018-03-17] MEDS: Cholecalciferol (Vitamin D3) 1,000 Unit Tab PO SCH (08:27)
[2018-03-17] MEDS: Insulin Aspart 100 Units/ML 3 ML Pen SUBCUT SCH ×3 (08:28→17:37)
[2018-03-17] MEDS: Iron Polysaccharides Complex 150 MG Cap PO SCH (08:28)
[2018-03-17] MEDS: atorvaSTATin 20 MG Tab PO SCH (20:02)
[2018-03-17] MEDS: Acetaminophen/oxyCODONE 325-5 MG Tab PO PRN (22:58)
[2018-03-18] MEDS: Pantoprazole 40 MG Tab.CR PO SCH ×2 (06:49→17:20)
[2018-03-18] MEDS: Tamsulosin 0.4 MG Cap.ER PO SCH (07:31)
[2018-03-18] MEDS: Iron Polysaccharides Complex 150 MG Cap PO SCH (07:31)
[2018-03-18] MEDS: Piperacillin/Tazobactam 2.25 GM in Sodium Chloride 0.9% 50 ML IV SCH ×2 (07:31→19:46)
[2018-03-18] MEDS: Beta-Carotene (Vitamin A) w/Vitamin C & E plus Minerals Tab PO SCH (07:31)
[2018-03-18] MEDS: Folic Acid 1 MG Tab PO SCH (07:31)
[2018-03-18] MEDS: Cholecalciferol (Vitamin D3) 1,000 Unit Tab PO SCH (07:32)
[2018-03-18] MEDS: Insulin Aspart 100 Units/ML 3 ML Pen SUBCUT SCH ×3 (08:29→17:20)
[2018-03-18] MEDS: atorvaSTATin 20 MG Tab PO SCH (19:45)
[2018-03-19] MEDS: Pantoprazole 40 MG Tab.CR PO SCH ×2 (06:36→16:53)
[2018-03-19] MEDS: Acetaminophen/oxyCODONE 325-5 MG Tab PO PRN ×2 (06:55→20:28)
[2018-03-19] MEDS: Piperacillin/Tazobactam 2.25 GM in Sodium Chloride 0.9% 50 ML IV SCH ×2 (07:14→20:23)
[2018-03-19] MEDS: Folic Acid 1 MG Tab PO SCH (07:14)
[2018-03-19] MEDS: Iron Polysaccharides Complex 150 MG Cap PO SCH (07:14)
[2018-03-19] MEDS: Beta-Carotene (Vitamin A) w/Vitamin C & E plus Minerals Tab PO SCH (07:14)
[2018-03-19] MEDS: Cholecalciferol (Vitamin D3) 1,000 Unit Tab PO SCH (07:14)
[2018-03-19] MEDS: Tamsulosin 0.4 MG Cap.ER PO SCH (07:14)
[2018-03-19] MEDS: Insulin Aspart 100 Units/ML 3 ML Pen SUBCUT SCH ×3 (07:59→17:30)
[2018-03-19] MEDS: atorvaSTATin 20 MG Tab PO SCH (20:21)
[2018-03-20] MEDS: Acetaminophen/oxyCODONE 325-5 MG Tab PO PRN (06:52)
[2018-03-20] MEDS: Pantoprazole 40 MG Tab.CR PO SCH ×2 (06:52→17:35)
[2018-03-20] MEDS: Piperacillin/Tazobactam 2.25 GM in Sodium Chloride 0.9% 50 ML IV SCH ×2 (07:49→19:46)
[2018-03-20] MEDS: Cholecalciferol (Vitamin D3) 1,000 Unit Tab PO SCH (07:49)
[2018-03-20] MEDS: Folic Acid 1 MG Tab PO SCH (07:50)
[2018-03-20] MEDS: Beta-Carotene (Vitamin A) w/Vitamin C & E plus Minerals Tab PO SCH (07:50)
[2018-03-20] MEDS: Tamsulosin 0.4 MG Cap.ER PO SCH (07:50)
[2018-03-20] MEDS: Iron Polysaccharides Complex 150 MG Cap PO SCH (07:50)
[2018-03-20] MEDS: Insulin Aspart 100 Units/ML 3 ML Pen SUBCUT SCH ×3 (07:50→17:35)
[2018-03-20] MEDS: atorvaSTATin 20 MG Tab PO SCH (19:46)
[2018-03-20] MEDS: Acetaminophen 325 MG Tab PO PRN (22:26)
[2018-03-21] MEDS: Pantoprazole 40 MG Tab.CR PO SCH ×2 (07:38→17:19)
[2018-03-21] MEDS: Iron Polysaccharides Complex 150 MG Cap PO SCH (07:38)
[2018-03-21] MEDS: Folic Acid 1 MG Tab PO SCH (07:39)
[2018-03-21] MEDS: Beta-Carotene (Vitamin A) w/Vitamin C & E plus Minerals Tab PO SCH (07:39)
[2018-03-21] MEDS: Tamsulosin 0.4 MG Cap.ER PO SCH (07:40)
[2018-03-21] MEDS: Cholecalciferol (Vitamin D3) 1,000 Unit Tab PO SCH (07:40)
[2018-03-21] MEDS: Piperacillin/Tazobactam 2.25 GM in Sodium Chloride 0.9% 50 ML IV SCH ×2 (07:41→19:57)
[2018-03-21] MEDS: Insulin Aspart 100 Units/ML 3 ML Pen SUBCUT SCH ×3 (07:43→17:19)
[2018-03-21] MEDS: atorvaSTATin 20 MG Tab PO SCH (19:57)
[2018-03-22] MEDS: Pantoprazole 40 MG Tab.CR PO SCH ×2 (06:35→17:43)
[2018-03-22] MEDS: Insulin Aspart 100 Units/ML 3 ML Pen SUBCUT SCH ×3 (08:32→17:45)
[2018-03-22] MEDS: Cholecalciferol (Vitamin D3) 1,000 Unit Tab PO SCH (09:10)
[2018-03-22] MEDS: Beta-Carotene (Vitamin A) w/Vitamin C & E plus Minerals Tab PO SCH (09:10)
[2018-03-22] MEDS: Tamsulosin 0.4 MG Cap.ER PO SCH (09:10)
[2018-03-22] MEDS: Iron Polysaccharides Complex 150 MG Cap PO SCH (09:10)
[2018-03-22] MEDS: Folic Acid 1 MG Tab PO SCH (09:10)
[2018-03-22] MEDS: Piperacillin/Tazobactam 2.25 GM in Sodium Chloride 0.9% 50 ML IV SCH ×2 (09:17→19:53)
[2018-03-22] MEDS: atorvaSTATin 20 MG Tab PO SCH (19:53)
[2018-03-22] MEDS: Acetaminophen/oxyCODONE 325-5 MG Tab PO PRN (23:20)
[2018-03-23] MEDS: Pantoprazole 40 MG Tab.CR PO SCH ×2 (06:43→17:30)
[2018-03-23] MEDS: Insulin Aspart 100 Units/ML 3 ML Pen SUBCUT SCH ×3 (08:15→17:30)
[2018-03-23] MEDS: Cholecalciferol (Vitamin D3) 1,000 Unit Tab PO SCH (08:16)
[2018-03-23] MEDS: Beta-Carotene (Vitamin A) w/Vitamin C & E plus Minerals Tab PO SCH (08:16)
[2018-03-23] MEDS: Tamsulosin 0.4 MG Cap.ER PO SCH (08:16)
[2018-03-23] MEDS: Iron Polysaccharides Complex 150 MG Cap PO SCH (08:16)
[2018-03-23] MEDS: Folic Acid 1 MG Tab PO SCH (08:16)
[2018-03-23] MEDS: Piperacillin/Tazobactam 2.25 GM in Sodium Chloride 0.9% 50 ML IV SCH ×2 (08:19→19:45)
[2018-03-23] MEDS: atorvaSTATin 20 MG Tab PO SCH (19:44)
[2018-03-24] MEDS: Acetaminophen/oxyCODONE 325-5 MG Tab PO PRN (00:06)
[2018-03-24] MEDS: Piperacillin/Tazobactam 2.25 GM in Sodium Chloride 0.9% 50 ML IV SCH ×3 (04:33→19:48)
[2018-03-24] MEDS: Pantoprazole 40 MG Tab.CR PO SCH ×3 (04:36→17:19)
[2018-03-24] MEDS: Tamsulosin 0.4 MG Cap.ER PO SCH ×2 (04:37→07:39)
[2018-03-24] MEDS: Iron Polysaccharides Complex 150 MG Cap PO SCH ×2 (04:37→07:39)
[2018-03-24] MEDS: Beta-Carotene (Vitamin A) w/Vitamin C & E plus Minerals Tab PO SCH ×2 (04:38→07:40)
[2018-03-24] MEDS: Cholecalciferol (Vitamin D3) 1,000 Unit Tab PO SCH ×2 (04:38→07:41)
[2018-03-24] MEDS: Folic Acid 1 MG Tab PO SCH ×2 (04:38→07:39)
[2018-03-24] MEDS: Insulin Aspart 100 Units/ML 3 ML Pen SUBCUT SCH ×3 (07:40→17:22)
[2018-03-24] MEDS: Acetaminophen 325 MG Tab PO PRN (15:24)
[2018-03-24] MEDS: atorvaSTATin 20 MG Tab PO SCH (19:48)
[2018-03-25] MEDS: Acetaminophen 325 MG Tab PO PRN (06:17)
[2018-03-25] MEDS: Iron Polysaccharides Complex 150 MG Cap PO SCH (07:06)
[2018-03-25] MEDS: Tamsulosin 0.4 MG Cap.ER PO SCH (07:06)
[2018-03-25] MEDS: Piperacillin/Tazobactam 2.25 GM in Sodium Chloride 0.9% 50 ML IV SCH ×2 (07:06→19:35)
[2018-03-25] MEDS: Cholecalciferol (Vitamin D3) 1,000 Unit Tab PO SCH (07:07)
[2018-03-25] MEDS: Beta-Carotene (Vitamin A) w/Vitamin C & E plus Minerals Tab PO SCH (07:07)
[2018-03-25] MEDS: Folic Acid 1 MG Tab PO SCH (07:07)
[2018-03-25] MEDS: Pantoprazole 40 MG Tab.CR PO SCH ×2 (07:07→17:32)
[2018-03-25] MEDS: Insulin Aspart 100 Units/ML 3 ML Pen SUBCUT SCH ×3 (09:57→17:32)
[2018-03-25] MEDS: atorvaSTATin 20 MG Tab PO SCH (19:34)
[2018-03-26] MEDS: Acetaminophen 325 MG Tab PO PRN ×2 (04:15→16:52)
[2018-03-26] MEDS: Pantoprazole 40 MG Tab.CR PO SCH ×2 (06:51→16:52)
[2018-03-26] MEDS: Tamsulosin 0.4 MG Cap.ER PO SCH (08:52)
[2018-03-26] MEDS: Iron Polysaccharides Complex 150 MG Cap PO SCH (08:52)
[2018-03-26] MEDS: Folic Acid 1 MG Tab PO SCH (08:52)
[2018-03-26] MEDS: Cholecalciferol (Vitamin D3) 1,000 Unit Tab PO SCH (08:52)
[2018-03-26] MEDS: Beta-Carotene (Vitamin A) w/Vitamin C & E plus Minerals Tab PO SCH (08:53)
[2018-03-26] MEDS: Insulin Aspart 100 Units/ML 3 ML Pen SUBCUT SCH ×3 (08:54→17:10)
[2018-03-26] MEDS: Piperacillin/Tazobactam 2.25 GM in Sodium Chloride 0.9% 50 ML IV SCH ×2 (08:56→19:53)
--- NOTE | 2018-03-26 09:14 | PCM.PN ---
- General Info Date of Service: 03/26/18 Admission Dx/Problem (Free Text): Admission Diagnosis/Problem Admission Diagnosis/Problem Pancytopenia due to chemotherapy Functional Status: Reports: Pain Controlled, Tolerating Diet, Ambulating (toe touch weight bearing with cast shoe only for transfers) - Review of Systems General: Reports: Weakness, Fatigue. Denies: Fever HEENT: Reports: No Symptoms Pulmonary: Denies: Shortness of Breath, Cough Cardiovascular: Denies: Chest Pain, Lightheadedness Gastrointestinal: Denies: Abdominal Pain, Nausea, Vomiting Genitourinary: Reports: Other (continues to void 100-200 ml at times) Musculoskeletal: Reports: No Symptoms Skin: Reports: Other (bandage intact to right foot) Neurological: Reports: No Symptoms - Patient Data Vitals - Most Recent: Last Vital Signs Temp 98.3 F 03/26/18 08:00 Pulse 88 03/26/18 08:00 Resp 18 03/26/18 08:00 BP 174/88 H 03/26/18 08:00 Pulse Ox 100 03/26/18 08:00 Weight - Most Recent: 200 lb 6.4 oz Lab Results Last 24 Hours: Laboratory Results - last 24 hr 03/25/18 03/25/18 03/26/18 Range/Units 17:03 20:34 07:27 POC Glucose 165 H 159 H 129 H (75-105) mg/dl Med Orders - Current: Current Medications Acetaminophen (Tylenol) 650 mg PO Q6H PRN PRN Reason: Pain (Mild 1-3)/fever Last Admin: 03/26/18 04:15 Dose: 650 mg Atorvastatin Calcium (Lipitor) 40 mg PO BEDTIME [facility] Last Admin: 03/25/18 19:34 Dose: 40 mg Cholecalciferol (Vitamin D3) 5,000 units PO DAILY [facility] Last Admin: 03/26/18 08:52 Dose: 5,000 units Docusate Sodium (Colace) 100 mg PO BID PRN PRN Reason: Constipation Folic Acid (Folic Acid) 1 mg PO DAILY [facility] Last Admin: 03/26/18 08:52 Dose: 1 mg Heparin Sodium (Porcine) (Heparin Lock Flush 100 Units/Ml) 300 units FLUSH BID PRN PRN Reason: IV Use Last Admin: 03/14/18 11:50 Dose: 300 units Heparin Sodium (Porcine) (Heparin Lock Flush 100 Units/Ml) 300 units IVPUSH BID [facility] Last Admin: 03/26/18 08:54 Dose: 300 units Piperacillin Sod/Tazobactam (Sod 2.25 gm/ Sodium Chloride) 50 mls @ 100 mls/hr IV BID [facility] Last Admin: 03/26/18 08:56 Dose: 100 mls/hr Insulin Aspart (Novolog) 0 unit SUBCUT TIDMEALS [facility]; Protocol Last Admin: 03/26/18 08:54 Dose: Not Given Levalbuterol HCl (Xopenex) 0.63 mg NEB Q4H PRN PRN Reason: Wheezing Multi-Ingredient Ointment (Eucerin Creme) 0 gm TOP QID PRN PRN Reason: dry skin Last Admin: 03/12/18 21:00 Dose: 1 applic Multivitamins/Minerals (Prosight) 1 tab PO DAILY [facility] Last Admin: 03/26/18 08:53 Dose: 1 tab Oxycodone/Acetaminophen (Percocet 325-5 Mg) 1 tab PO Q6H PRN PRN Reason: Pain (moderate 4-6) Last Admin: 03/24/18 00:06 Dose: 1 tab Pantoprazole Sodium (Protonix) 40 mg PO BIDAC [facility] Last Admin: 03/26/18 06:51 Dose: 40 mg Polysaccharide Iron Complex (Ferrex 150) 150 mg PO DAILY [facility] Last Admin: 03/26/18 08:52 Dose: 150 mg Tamsulosin HCl (Flomax) 0.8 mg PO DAILY [facility] Last Admin: 03/26/18 08:52 Dose: 0.8 mg Discontinued Medications Cyanocobalamin (Vitamin B12) 1,000 mcg IM SEECOMMENT [facility] Cyanocobalamin (Vitamin B12) 1,000 mcg IM ONETIME ONE Stop: 03/14/18 13:01 Last Admin: 03/14/18 13:47 Dose: 1,000 mcg Glucagon (Glucagen) Confirm Administered Dose 1 mg .ROUTE .STK-MED ONE Stop: 03/11/18 21:43 Last Admin: 03/11/18 22:05 Dose: Not Given Glucagon (Glucagen) 1 mg IM ONETIME ONE Stop: 03/11/18 21:47 Last Admin: 03/11/18 21:43 Dose: 1 mg Insulin Aspart (Novolog) 10 unit SUBCUT DAILY@0800 [facility] Last Admin: 03/12/18 08:54 Dose: Not Given Insulin Aspart (Novolog) 12 unit SUBCUT DAILY@1200 [facility] Insulin Aspart (Novolog) 14 unit SUBCUT DAILY@1730 [facility] Last Admin: 03/11/18 17:38 Dose: 14 units - Exam General: Alert, Oriented HEENT: Mucous Membr. Moist/Diagonal Neck: Supple Lungs: Clear to Auscultation, Normal Respiratory Effort Cardiovascular: Irregular Rhythm GI/Abdominal Exam: Normal Bowel Sounds, Soft, Non-Tender Extremities: Other (bandage intact to right foot, no redness noted) Wound/Incisions: Dressing Dry and Intact Neurological: No New Focal Deficit - Problem List & Annotations (1) Palliative care patient SNOMED Code(s): 421559527 Code(s): Z51.5 - ENCOUNTER FOR PALLIATIVE CARE Status: Acute Priority: High Current Visit: Yes (2) Acute on chronic renal failure SNOMED Code(s): 390526992 Code(s): N17.9 - ACUTE KIDNEY FAILURE, UNSPECIFIED; N18.9 - CHRONIC KIDNEY DISEASE, UNSPECIFIED Status: Acute Priority: High Current Visit: Yes Qualifiers: Chronic kidney disease stage: on chronic dialysis (3) Anemia SNOMED Code(s): 159215894 Code(s): D64.9 - ANEMIA, UNSPECIFIED Status: Acute Priority: High Current Visit: Yes Qualifiers: Other causes of anemia: acute posthemorrhagic (4) Gastric cancer Status: Acute Priority: High Current Visit: Yes Qualifiers: Malignant neoplasm of stomach location: unspecified location Qualified Code (s): C16.9 - Malignant neoplasm of stomach, unspecified (5) Weakness SNOMED Code(s): 68400888 Code(s): R53.1 - WEAKNESS Status: Acute Priority: High Current Visit: Yes - Problem List Review Problem List Initiated/Reviewed/Updated: Yes - Assessment Assessment:: Pancytopenia Weakness Wound ulcer Atrial Fib History of GI Bleed History of Gastric carcinoma CKD - Plan Plan:: ADmit swing bed. Continue physical therapy for strengthening. Will continue dialysis 3 days per week. No anticoagulation at this time due to recent history of GI Bleed, will be reevaluated by cardiovascular in March due to risk of clot related to recent stent in RLE and history of atrial fib. Glucoscan QID. Continue to monitor blood pressures BID. 03-26-2018 Patient seen today for 14 day recert as was out on pass yesterday for doctor's appointments in [place]. He admits to feeling good, ready to be discharged home. Is ambulating with cast shoe to the bathroom with one assist. Denies any pain. No chest discomfort, shortness of breath or abdominal pain. States did have some nausea yesterday but that has subsided, thinks it may be related to all the travelling. He does continue to have an open wound to his 4th toe, seen by podiatry yesterday who felt it was healing. Also seen by cardiology yesterday, was to address anticoagulation use but patient unsure of their advice. Will need to consult with . Does continue to get dialysis 3 times per week in [place]. Blood pressure noted to be elevated. Lung sounds are clear. Cardiac irregular rhythm. Arrangements for the home are being made to have shower chair, wheelchair, wheelchair ramp, etc. Will have home health services at that time. Probable discharge on Saturday.
[2018-03-26] MEDS ORDERED: IODOSORB 0.9% TOP SCH (12:00)
[2018-03-26] MEDS: Acetaminophen/oxyCODONE 325-5 MG Tab PO PRN (19:51)
[2018-03-26] MEDS: atorvaSTATin 20 MG Tab PO SCH (19:52)
[2018-03-27] MEDS: Acetaminophen/oxyCODONE 325-5 MG Tab PO PRN ×2 (01:46→10:38)
[2018-03-27] MEDS: Pantoprazole 40 MG Tab.CR PO SCH ×2 (06:35→17:32)
[2018-03-27] MEDS: Piperacillin/Tazobactam 2.25 GM in Sodium Chloride 0.9% 50 ML IV SCH (07:32)
[2018-03-27] MEDS: Iron Polysaccharides Complex 150 MG Cap PO SCH (07:36)
[2018-03-27] MEDS: Folic Acid 1 MG Tab PO SCH (07:37)
[2018-03-27] MEDS: Tamsulosin 0.4 MG Cap.ER PO SCH (07:37)
[2018-03-27] MEDS: Insulin Aspart 100 Units/ML 3 ML Pen SUBCUT SCH ×3 (07:38→17:32)
[2018-03-27] MEDS: Cholecalciferol (Vitamin D3) 1,000 Unit Tab PO SCH (07:38)
[2018-03-27] MEDS: Beta-Carotene (Vitamin A) w/Vitamin C & E plus Minerals Tab PO SCH (07:38)
[2018-03-27] MEDS: IODOSORB 0.9% TOP SCH (10:39)
[2018-03-27] MEDS: atorvaSTATin 20 MG Tab PO SCH (19:28)
[2018-03-27] MEDS: Acetaminophen 325 MG Tab PO PRN (19:30)
[2018-03-27] MEDS ORDERED: Insulin Aspart 100 Units/ML 3 ML Pen SUBCUT ONE (21:31)
[2018-03-28] MEDS: Pantoprazole 40 MG Tab.CR PO SCH (06:44)
[2018-03-28] MEDS: Iron Polysaccharides Complex 150 MG Cap PO SCH (07:37)
[2018-03-28] MEDS: Tamsulosin 0.4 MG Cap.ER PO SCH (07:37)
[2018-03-28] MEDS: Folic Acid 1 MG Tab PO SCH (07:38)
[2018-03-28] MEDS: Beta-Carotene (Vitamin A) w/Vitamin C & E plus Minerals Tab PO SCH (07:38)
[2018-03-28] MEDS: Cholecalciferol (Vitamin D3) 1,000 Unit Tab PO SCH (07:38)
[2018-03-28] MEDS: Insulin Aspart 100 Units/ML 3 ML Pen SUBCUT SCH (07:40)
[2018-03-28 07:45] VITALS: BP 156/74
[2018-03-28] MEDS ORDERED: methylPREDNISolone Acetate 80 MG/ML SDV IARTIC ONE (08:00)
[2018-03-28] MEDS: IODOSORB 0.9% TOP SCH (10:12)
--- NOTE | 2018-03-28 22:04 | PCM.DCSUM1 ---
Discharge Summary - Hospital Course Free Text/Narrative:: Patient admitted swing bed from [facility] in [place] after lengthy hospital stay of septic shock. Patient had been admitted here originally on February 10 for weakness and a fall s/p chemo. Patient had been experiencing increasing weakness after receiving 5 rounds of 5FU. Creatinine elevated at 5.1 , oncology recommended IV hydration. On day 1 after admission, patient became hypotensive, lethargic and more short of breath. Was transferred to [facility] due to septic shock. While there, patient had worsening status, was intubated and required multiple medications for his blood pressure and infection. Had initially had distention of his abdomen, felt related to fluid overload and not his anastomosis. He had worsening ischemia of his right 5th toe, a stent was placed in his leg and eventually the toe was amputated. Was placed on Plavix and ASA for the arterial blockage as well as development of atrial fib. Unfortunately, patient developed a GI bleed, required 6 units of blood. While doing laparoscope, did biopsy his stomach and found no further evidence of his gastric cancer at that time. Plavix and ASA have now been held. Patient is currently receiving dialysis 3 times per week. He did have infiltration of the fistula in his arm so has a Howell's catheter present. In addition, patient did develop C diff that he was treated for as well. Currently has decided will no longer receive any further chemo. Will continue with dialysis 3 times per week. Physical therapy for strengthening. Diagnosis: Stroke: No Modified [place] Scale: No Symptoms at All Modified [place] Scale Score: 0 - Discharge Data Discharge Date: 03/28/18 Discharge Disposition: Home, Home Health Agency 06 Condition: Good - Discharge Diagnosis/Problem(s) (1) Palliative care patient SNOMED Code(s): 726054822 ICD Code: Z51.5 - ENCOUNTER FOR PALLIATIVE CARE Status: Acute Priority: High (2) Acute on chronic renal failure SNOMED Code(s): 188927322 ICD Code: N17.9 - ACUTE KIDNEY FAILURE, UNSPECIFIED; N18.9 - CHRONIC KIDNEY DISEASE, UNSPECIFIED Status: Acute Priority: High Qualifiers: Chronic kidney disease stage: on chronic dialysis (3) Anemia SNOMED Code(s): 616622566 ICD Code: D64.9 - ANEMIA, UNSPECIFIED Status: Acute Priority: High Qualifiers: Other causes of anemia: acute posthemorrhagic (4) Gastric cancer Status: Acute Priority: High Qualifiers: Malignant neoplasm of stomach location: unspecified location Qualified Code (s): C16.9 - Malignant neoplasm of stomach, unspecified (5) Weakness SNOMED Code(s): 43813090 ICD Code: R53.1 - WEAKNESS Status: Acute Priority: High - Patient Summary/Data Complications: none Consults: Consultations 03/11/18 14:35 PT Evaluation and Treatment [CONS] Routine Hospital Course: Patient has slowly had improvement of his strength since admission. He is ambulating with his walker, using his right leg more than is recommended due to amputation of his right 5th toe. Also has an open lesion to his right 4th digit. Has had pain in his left knee, xrays were done, which shows degenerative changes. Dr. Malone injected today prior to discharge. Appetite has been good. Continues to void in small amounts. Receives dialysis 3 times per week in [place]. Blood pressure variable, ranges from 130s-160s/80-90. Blood sugars average in the 200s. Accommodations made for patient to return home, see social service note. Will receive home health care at home. Nursing to monitor blood pressure, wound to right 4th digit, edema and pain. Physical therapy for ongoing strengthening. Patient is homebound due to s/p sepsis, deconditioning, recent amputation with pivot transfers only. Dr. Malone will oversee home health care. - Patient Instructions Diet: Diabetic Diet Activity: As Tolerated - Discharge Plan *PRESCRIPTION DRUG MONITORING PROGRAM REVIEWED*: No *COPY OF PRESCRIPTION DRUG MONITORING REPORT IN PATIENT CHRISTINA: No Prescriptions/Med Rec: Acetaminophen/oxyCODONE [Percocet 325-5 MG] 1 tab PO Q6H PRN #30 tablet PRN Reason: Pain (Moderate 4-6) Menard/Min Oil/Dee Dee/Wool Alcoh [Eucerin Creme] 113 gm TOP QID PRN #1 tube PRN Reason: dry skin Docusate Sodium [Colace] 100 mg PO BID PRN #60 cap PRN Reason: Constipation Iodosorb 0.9% Gel 1 applic TOP DAILY #1 Levalbuterol HCl [Xopenex] 0.63 mg NEB Q4H PRN #1 box PRN Reason: Wheezing Pantoprazole [ProTONIX] 40 mg PO BIDAC #60 tab.cr Home Medications: Home Meds Folic Acid 1 mg PO DAILY 01/14/14 [History] atorvaSTATin [Lipitor] 40 mg PO DAILY 01/14/14 [History] Insulin Aspart [NovoLOG] 2 - 8 unit SQ QIDACANDBED 07/20/17 [History] Tamsulosin [Flomax] 0.8 mg PO DAILY 07/20/17 [History] Cholecalciferol (Vitamin D3) [Vitamin D3] 5,000 unit PO DAILY 08/14/17 [History] Lutein/Minerals/Vit A,C & E [Ocuvite] 1 tab PO DAILY 08/14/17 [History] Iron Polysaccharides Complex [Ferrex 150] 150 mg PO DAILY 03/11/18 [History] Acetaminophen/oxyCODONE [Percocet 325-5 MG] 1 tab PO Q6H PRN #30 tablet [Rx] Menard/Min Oil/Dee Dee/Wool Alcoh [Eucerin Creme] 113 gm TOP QID PRN #1 tube [Rx] Docusate Sodium [Colace] 100 mg PO BID PRN #60 cap 03/27/18 [Rx] Iodosorb 0.9% Gel 1 applic TOP DAILY #1 03/27/18 [Rx] Levalbuterol HCl [Xopenex] 0.63 mg NEB Q4H PRN #1 box 03/27/18 [Rx] Pantoprazole [ProTONIX] 40 mg PO BIDAC #60 tab.cr 03/27/18 [Rx] Oxygen Therapy Mode: Nasal Cannula Referrals: Raffi Malone MD [Primary Care Provider] - (Follow up with Dr Malone in 1 week) - Discharge Summary/Plan Comment DC Time >30 min.: No - General Info Date of Service: 03/28/18 Admission Dx/Problem (Free Text: Admission Diagnosis/Problem Admission Diagnosis/Problem Pancytopenia due to chemotherapy Functional Status: Reports: Pain Controlled, Tolerating Diet, Ambulating - Review of Systems General: Reports: Weakness, Fatigue HEENT: Reports: No Symptoms Pulmonary: Denies: Shortness of Breath, Cough Cardiovascular: Denies: Chest Pain, Edema Gastrointestinal: Denies: Abdominal Pain, Nausea, Vomiting Genitourinary: Reports: Other (does still void despite being on dialysis) Musculoskeletal: Reports: Joint Pain (left knee pain) Skin: Reports: No Symptoms Neurological: Reports: No Symptoms - Patient Data Vitals - Most Recent: Last Vital Signs Temp 98.3 F 03/28/18 07:45 Pulse 96 03/28/18 07:45 Resp 16 03/28/18 07:45 BP 156/74 H 03/28/18 07:45 Pulse Ox 98 03/28/18 07:45 Weight - Most Recent: 200 lb 6.4 oz Lab Results - Last 24 hrs: Laboratory Results - last 24 hr 03/27/18 03/28/18 Range/Units 21:27 07:39 POC Glucose 369 H 107 H (75-105) mg/dl Med Orders - Current: Current Medications Discontinued Medications Acetaminophen (Tylenol) 650 mg PO Q6H PRN PRN Reason: Pain (Mild 1-3)/fever Last Admin: 03/27/18 19:30 Dose: 650 mg Atorvastatin Calcium (Lipitor) 40 mg PO BEDTIME [facility] Last Admin: 03/27/18 19:28 Dose: 40 mg Cholecalciferol (Vitamin D3) 5,000 units PO DAILY [facility] Last Admin: 03/28/18 07:38 Dose: 5,000 units Cyanocobalamin (Vitamin B12) 1,000 mcg IM SEECOMMENT [facility] Cyanocobalamin (Vitamin B12) 1,000 mcg IM ONETIME ONE Stop: 03/14/18 13:01 Last Admin: 03/14/18 13:47 Dose: 1,000 mcg Docusate Sodium (Colace) 100 mg PO BID PRN PRN Reason: Constipation Folic Acid (Folic Acid) 1 mg PO DAILY [facility] Last Admin: 03/28/18 07:38 Dose: 1 mg Glucagon (Glucagen) Confirm Administered Dose 1 mg .ROUTE .STK-MED ONE Stop: 03/11/18 21:43 Last Admin: 03/11/18 22:05 Dose: Not Given Glucagon (Glucagen) 1 mg IM ONETIME ONE Stop: 03/11/18 21:47 Last Admin: 03/11/18 21:43 Dose: 1 mg Heparin Sodium (Porcine) (Heparin Lock Flush 100 Units/Ml) 300 units FLUSH BID PRN PRN Reason: IV Use Last Admin: 03/14/18 11:50 Dose: 300 units Heparin Sodium (Porcine) (Heparin Lock Flush 100 Units/Ml) 300 units IVPUSH BID [facility] Last Admin: 03/27/18 07:35 Dose: 300 units Piperacillin Sod/Tazobactam (Sod 2.25 gm/ Sodium Chloride) 50 mls @ 100 mls/hr IV BID [facility] Last Admin: 03/27/18 07:32 Dose: 100 mls/hr Insulin Aspart (Novolog) 10 unit SUBCUT DAILY@0800 [facility] Last Admin: 03/12/18 08:54 Dose: Not Given Insulin Aspart (Novolog) 12 unit SUBCUT DAILY@1200 [facility] Insulin Aspart (Novolog) 14 unit SUBCUT DAILY@1730 [facility] Last Admin: 03/11/18 17:38 Dose: 14 units Insulin Aspart (Novolog) 0 unit SUBCUT TIDMEALS [facility]; Protocol Last Admin: 03/28/18 07:40 Dose: Not Given Insulin Aspart (Novolog) 6 unit SUBCUT ONETIME ONE Stop: 03/27/18 21:32 Last Admin: 03/27/18 22:03 Dose: 6 unit Levalbuterol HCl (Xopenex) 0.63 mg NEB Q4H PRN PRN Reason: Wheezing Methylprednisolone Acetate (Depo-Medrol) 80 mg IARTIC ONETIME ONE Stop: 03/28/18 08:01 Last Admin: 03/28/18 10:12 Dose: 80 mg Multi-Ingredient Ointment (Eucerin Creme) 0 gm TOP QID PRN PRN Reason: dry skin Last Admin: 03/12/18 21:00 Dose: 1 applic Multivitamins/Minerals (Prosight) 1 tab PO DAILY [facility] Last Admin: 03/28/18 07:38 Dose: 1 tab Iodosorb 0.9% Gel 1 applic TOP DAILY@1200 [facility] Last Admin: 03/26/18 11:44 Dose: 1 applic Iodosorb 0.9% Gel 1 applic TOP DAILY [facility] Last Admin: 03/28/18 10:12 Dose: 1 applic Oxycodone/Acetaminophen (Percocet 325-5 Mg) 1 tab PO Q6H PRN PRN Reason: Pain (moderate 4-6) Last Admin: 03/27/18 10:38 Dose: 1 tab Pantoprazole Sodium (Protonix) 40 mg PO BIDAC [facility] Last Admin: 03/28/18 06:44 Dose: 40 mg Polysaccharide Iron Complex (Ferrex 150) 150 mg PO DAILY [facility] Last Admin: 03/28/18 07:37 Dose: 150 mg Tamsulosin HCl (Flomax) 0.8 mg PO DAILY [facility] Last Admin: 03/28/18 07:37 Dose: 0.8 mg - Exam General: Reports: Alert, Oriented HEENT: Reports: Mucous Membr. Moist/[place] Neck: Reports: Supple Lungs: Reports: Clear to Auscultation, Normal Respiratory Effort Cardiovascular: Reports: Irregular Rhythm GI/Abdominal Exam: Normal Bowel Sounds, Soft, Non-Tender Extremities: Joint Swelling (Does have moderate left knee effusion. Xrays were taken yesterday, showed degenerative changes. ), Leg Pain Skin: Reports: Other (incision to right foot is healing well, well approximated , no drainage or redness. Does still have redness to base of 4th toe.) Wound/Incisions: Reports: Healing Well, No Drainage Neurological: Reports: No New Focal Deficit *Q Meaningful Use (DIS) - VTE *Q VTE Anticoagulation Contraindications: Treatment Not Tolerated
--- NOTE | 2018-03-31 12:07 | OR ---
DATE OF OPERATION: 03/28/2018 Don has been complaining of left knee pain. He has documented osteoarthritis. We elected to proceed with cortisone injection. The knee was prepped and draped in usual fashion and bent in a 90-degree angle while he was sitting in a recliner; 80 mg of Depo-Medrol and 2 mL of 0.5% Sensorcaine were injected into the knee joint using anterolateral approach without complication. FLYNN/ZAID /[id number]
== END 2018-03-28 10:40 | disposition home health service (06) | DRG 947 ==
LOC: UNDOADMIN 14:33 → CC.MS 14:33
PROVIDERS: ADMIT Physician Assistant Medical; ATTEND Family Medicine
DX: R53.1 Weakness (principal); D61.810 Antineoplastic chemotherapy induced pancytopenia; N18.6 End stage renal disease; C16.9 Malignant neoplasm of stomach, unspecified; C78.89 Secondary malignant neoplasm of other digestive organs; I12.0 Hypertensive chronic kidney disease with stage 5 chronic kidney disease or end stage renal disease; D62 Acute posthemorrhagic anemia; T45.1X5A Adverse effect of antineoplastic and immunosuppressive drugs, initial encounter; C80.1 Malignant (primary) neoplasm, unspecified; M25.462 Effusion, left knee; I48.91 Unspecified atrial fibrillation; H54.7 Unspecified visual loss; E78.00 Pure hypercholesterolemia, unspecified; E11.22 Type 2 diabetes mellitus with diabetic chronic kidney disease; K59.09 Other constipation; K21.9 Gastro-esophageal reflux disease without esophagitis; N40.0 Benign prostatic hyperplasia without lower urinary tract symptoms; M19.90 Unspecified osteoarthritis, unspecified site; G89.29 Other chronic pain; M54.9 Dorsalgia, unspecified; Z95.828 Presence of other vascular implants and grafts; Z90.49 Acquired absence of other specified parts of digestive tract; Z51.5 Encounter for palliative care; Z79.899 Other long term (current) drug therapy; Z79.4 Long term (current) use of insulin; Z99.2 Dependence on renal dialysis; Z96.649 Presence of unspecified artificial hip joint; Z89.421 Acquired absence of other right toe(s); Z92.21 Personal history of antineoplastic chemotherapy; Z88.8 Allergy status to other drugs, medicaments and biological substances; Z66 Do not resuscitate
CPT/HCPCS: 36415; 71046; 73562-LT; 80048; 82962; 85025; 86140; 87070; 97110-GP; 97162-GP; 97530-GP; 97535-GP; 97597-GP; A9270-GY; J1040; J1610; J1642; J1815-GY; J2543; J3420; J7050

== ENCOUNTER 2019-11-13 06:24 | Emergency (ER) | payer MEDICARE, BC ==
[2019-11-13 06:31] VITALS: PULSE 98
[2019-11-13 07:02] VITALS: BP 170/78
--- NOTE | 2019-11-13 07:23 | EDM.PDOC ---
ED HPI GENERAL MEDICAL PROBLEM - General Chief Complaint: Abdominal Pain Stated Complaint: LLQ pain Time Seen by Provider: 11/13/19 07:05 Source of Information: Reports: Patient History Limitations: Reports: No Limitations - History of Present Illness INITIAL COMMENTS - FREE TEXT/NARRATIVE: states that he has been having left lower quadrant pain on and off since Saturday. About 0400 this AM he states that the pain became more intense. He denies any fever with it. No change in appetite. No diarrhea or constipation. Pain can be sharp at times. Last BM was early this AM and he states that it was soft and no diarrhea. Denies any lifting or pulling. Onset: Gradual Duration: Getting Worse Location: Reports: Abdomen Associated Symptoms: Denies: Nausea/Vomiting Left Lower Abdomen Pain Score (Numeric/FACES): 7 - Related Data Allergies Allergy/AdvReac Type Severity Reaction Status Date / Time metoclopramide [From Reglan] Allergy Headache Verified 11/13/19 06:33 Home Meds: Home Meds Folic Acid 1 mg PO DAILY 01/14/14 [History] atorvaSTATin [Lipitor] 40 mg PO DAILY 01/14/14 [History] Tamsulosin [Flomax] 0.4 mg PO BID 07/20/17 [History] Lutein/Minerals/Vit A,C & E [Ocuvite] 1 tab PO BID 08/14/17 [History] Cyanocobalamin (Vitamin B-12) [Cyanocobalamin Injection] 1 ml IM Q30D 05/14/18 [History] Pantoprazole [ProTONIX] 40 mg PO DAILY 05/14/18 [History] Insulin Aspart [NovoLOG] 12 - 14 unit SUBCUT ASDIRECTED 05/16/18 [History] Calcium Acetate 667 mg PO TIDMEALS 09/10/18 [History] Bumetanide [Bumex] 2 mg PO BID 11/13/19 [History] Past Medical History HEENT History: Reports: Cataract, Impaired Vision Cardiovascular History: Reports: High Cholesterol, Hypertension Gastrointestinal History: Reports: Chronic Constipation, GERD, Other (See Below) Other Gastrointestinal History: gastric cancer Genitourinary History: Reports: BPH, Chronic Renal Insuffiency, Dialysis, Renal Disease Musculoskeletal History: Reports: Arthritis, Back Pain, Chronic, Other (See Below) Other Musculoskeletal History: compression fractures Neurological History: Reports: None Endocrine/Metabolic History: Reports: Diabetes, Type II, IDDM Hematologic History: Reports: B12 Deficiency Immunologic History: Reports: Immunosuppression Oncologic (Cancer) History: Reports: Other (See Below) Other Oncologic History: Gastric - Infectious Disease History Infectious Disease History: Reports: C-Difficile - Past Surgical History HEENT Surgical History: Reports: Cataract Surgery Cardiovascular Surgical History: Reports: Other (See Below) Other Cardiovascular Surgeries/Procedures: FEMORAL STENT, R ARM FISTULA, L CHEST PORT, R CHEST NICHOLE DIALYSIS CATHETER GI Surgical History: Reports: Appendectomy, Cholecystectomy, EGD, Other (See Below) Other GI Surgeries/Procedures: ULCERS CLIPPED, 1/3 of stomach remaining d/t cancer Male Surgical History: Reports: None Endocrine Surgical History: Reports: None Neurological Surgical History: Reports: Vertebroplasty Musculoskeletal Surgical History: Reports: Amputation, Hip Replacement, Other (See Below) Other Musculoskeletal Surgeries/Procedures:: elbow surgery. vertebralplasty X3. R DISTAL TOE AMPUTATION Oncologic Surgical History: Reports: None Social & Family History - Family History Family Medical History: Noncontributory - Tobacco Use Smoking Status *Q: Former Smoker Used Tobacco, but Quit: Yes Month/Year Tobacco Last Used: 12yrs - Caffeine Use Caffeine Use: Reports: Coffee - Recreational Drug Use Recreational Drug Use: No ED ROS GENERAL - Review of Systems Review Of Systems: See Below Constitutional: Denies: Fever, Chills, Weakness HEENT: Reports: No Symptoms Respiratory: Reports: No Symptoms Cardiovascular: Reports: No Symptoms GI/Abdominal: Reports: Abdominal Pain. Denies: Anorexia, Black Stool, Nausea, Vomiting : Reports: No Symptoms Musculoskeletal: Reports: No Symptoms Skin: Reports: No Symptoms ED EXAM, GI/ABD - Physical Exam Exam: See Below Exam Limited By: No Limitations General Appearance: Alert, WD/WN, Mild Distress Nose: Normal Inspection Throat/Mouth: Normal Inspection, Normal Oropharynx Head: Atraumatic, Normocephalic Neck: Normal Inspection, Supple, Non-Tender Respiratory/Chest: No Respiratory Distress, Lungs Clear, Normal Breath Sounds Cardiovascular: Regular Rate, Rhythm GI/Abdominal Exam: Normal Bowel Sounds, Soft, Tender (to the LUQ and LLQ with palpation. Pain is worse to the lower quadrant. No guarding noted.) Extremities: Normal Inspection, No Pedal Edema, Normal Capillary Refill Neurological: Alert, Oriented Skin Exam: Warm, Dry, Intact Course - Vital Signs Last Recorded V/S: Last Vital Signs Temp 97.7 F 11/13/19 06:28 Pulse 98 11/13/19 06:28 Resp 16 11/13/19 06:28 BP 170/78 H 11/13/19 07:02 Pulse Ox 99 11/13/19 06:28 - Orders/Labs/Meds Orders: Active Orders 24 hr Category Date Time Status Abdomen 2V AP Flat Upright [CR] Stat Exams 11/13/19 07:16 Taken Abdomen Pelvis wo Cont [CT] Stat Exams 11/13/19 07:47 Taken UA RFX DWIGHT AND CULT IF INDIC [URIN] Stat Lab 11/13/19 06:53 Ordered Labs: Laboratory Tests 11/13/19 11/13/19 Range/Units 07:05 07:05 WBC 6.0 (5.0-10.0) 10^3/uL RBC 3.46 L (4.50-6.00) 10^6/uL Hgb 10.7 L (14.0-18.0) g/dL Hct 33.9 L (40.0-54.0) % MCV 98.0 H (82.0-94.0) fL MCH 30.9 (27.0-32.0) pg MCHC 31.6 L (33.0-38.0) g/dL RDW Coeff of Jaida 13.2 (11.0-15.0) % Plt Count 127 L (150-400) 10^3/uL Neut % (Auto) 73.8 (35-85) % Lymph % (Auto) 15.0 (10-55) % [place] % (Auto) 6.5 (0-16) % Eos % (Auto) 4.5 (0-5) % Baso % (Auto) 0.2 (0-3) % Neut # (Auto) 4.44 (1.80-7.00) 10^3/uL Lymph # (Auto) 0.90 L (1.00-4.80) 10^3/uL [place] # (Auto) 0.39 (0.00-0.80) 10^3/uL Eos # (Auto) 0.27 (0.00-0.45) 10^3/uL Baso # (Auto) 0.01 10^3/uL Sodium 141 (136-145) mEq/L Potassium 4.1 (3.5-5.0) mEq/L Chloride 101 (98-106) mEq/L Carbon Dioxide 22 (21-32) mmol/L BUN 77 H* (7-18) mg/dL Creatinine 9.7 H* (0.7-1.3) mg/dL Est Cr Clr Drug Dosing 6.38 mL/min Estimated GFR (MDRD) 5 L (>=60) mL/min Glucose 207 H D (75-99) mg/dL Calcium 8.3 L (8.4-10.1) mg/dL Total Bilirubin 0.4 (0.0-1.0) mg/dL AST 11 L (15-37) U/L ALT 17 (12-78) U/L Alkaline Phosphatase 131 H (46-116) U/L C-Reactive Protein 3.6 H (0.2-0.8) mg/dL Total Protein 7.1 (6.4-8.2) g/dL Albumin 3.2 L (3.4-5.0) g/dL - Re-Assessments/Exams Free Text/Narrative Re-Assessment/Exam: 11/13/19 07:[address] Malone and will CT abdomen without contrast. Departure - Departure Time of Disposition: 09:03 Disposition: Home, Self-Care 01 Condition: Good Clinical Impression: Diverticulosis - Discharge Information *PRESCRIPTION DRUG MONITORING PROGRAM REVIEWED*: Not Applicable *COPY OF PRESCRIPTION DRUG MONITORING REPORT IN PATIENT CHRISTINA: Not Applicable Referrals: Raffi Malone MD [Primary Care Provider] - Forms: ED Department Discharge Additional Instructions: ceftin 250 mg twice a day diet as tolerated will call with follow up plans as discussed. Sepsis Event Note (ED) - Evaluation Sepsis Screening Result: No Definite Risk - Focused Exam Vital Signs: Vital Signs Temp Pulse Resp BP Pulse Ox 11/13/19 07:02 170/78 H 11/13/19 06:28 97.7 F 98 16 183/76 H 99 - My Orders Last 24 Hours: My Active Orders 11/13/19 06:53 UA RFX DWIGHT AND CULT IF INDIC [URIN] Stat 11/13/19 07:16 Abdomen 2V AP Flat Upright [CR] Stat 11/13/19 07:47 Abdomen Pelvis wo Cont [CT] Stat - Assessment/Plan Last 24 Hours: My Active Orders 11/13/19 06:53 UA RFX DWIGHT AND CULT IF INDIC [URIN] Stat 11/13/19 07:16 Abdomen 2V AP Flat Upright [CR] Stat 11/13/19 07:47 Abdomen Pelvis wo Cont [CT] Stat
== END 2019-11-13 09:15 | disposition home or self-care (01) ==
LOC: CC.ED 06:24
DX: K57.90 Diverticulosis of intestine, part unspecified, without perforation or abscess without bleeding (principal); E78.00 Pure hypercholesterolemia, unspecified; K21.9 Gastro-esophageal reflux disease without esophagitis; I12.9 Hypertensive chronic kidney disease with stage 1 through stage 4 chronic kidney disease, or unspecified chronic kidney disease; E11.22 Type 2 diabetes mellitus with diabetic chronic kidney disease; N18.9 Chronic kidney disease, unspecified; Z79.4 Long term (current) use of insulin; Z88.8 Allergy status to other drugs, medicaments and biological substances; Z79.899 Other long term (current) drug therapy; Z87.891 Personal history of nicotine dependence
CPT/HCPCS: 74019; 74176; 80053; 85025; 86140; 99284-25

== ENCOUNTER 2020-07-08 13:55 | Emergency (ER) | payer MEDICARE, BC ==
[2020-07-08 14:22] VITALS: BP 154/97; PULSE 93
--- NOTE | 2020-07-08 15:03 | EDM.PDOC ---
ED HPI GENERAL MEDICAL PROBLEM - General Chief Complaint: General Stated Complaint: Leg pain Time Seen by Provider: 07/08/20 14:12 Source of Information: Reports: Patient History Limitations: Reports: No Limitations - History of Present Illness INITIAL COMMENTS - FREE TEXT/NARRATIVE: Madan is a 79 yo male who presents to the ED via [facility] after falling at home. States he was going from the bathroom to his recliner with assistance of his walker. States he went to sit down and tripped hitting his right hip on the coffee table. Was unable to initially get up. was present and they decided to wait awhile to see if his pain improved. He was unable to ambulate and called 911 for transportation assistance as he isn't able to bear weight. States his son-in-law and grandson did come over and help him up initially. States he was suppose to go have dialysis today but was unable to since falling. Denies any other involved trauma from the fall. No head trauma. No loss of consciousness. States at rest his hip doesn't bother him much but any movement is almost unbearable. Right Upper Leg Pain Score (Numeric/FACES): 8 - Related Data Allergies Allergy/AdvReac Type Severity Reaction Status Date / Time metoclopramide [From Reglan] AdvReac Headache Verified 07/08/20 14:32 Home Meds: Home Meds Folic Acid 1 mg PO DAILY 01/14/14 [History] atorvaSTATin [Lipitor] 40 mg PO DAILY 01/14/14 [History] Tamsulosin [Flomax] 0.4 mg PO BID 07/20/17 [History] Cyanocobalamin (Vitamin B-12) [Cyanocobalamin Injection] 1 ml IM Q30D 05/14/18 [History] Pantoprazole [ProTONIX] 40 mg PO DAILY 05/14/18 [History] Insulin Aspart [NovoLOG] 12 - 14 unit SUBCUT ASDIRECTED 05/16/18 [History] Bumetanide [Bumex] 2 mg PO BID 11/13/19 [History] Calcium Acetate 667 mg PO DAILY 07/08/20 [History] Dicyclomine [Bentyl] 10 mg PO Q6HR PRN 07/08/20 [History] NIFEdipine [Nifedipine ER] 30 mg PO DAILY 07/08/20 [History] Vit A/Vit C/Vit E/Zinc/Copper [Preservision] 2 each PO DAILY 07/08/20 [History] Past Medical History HEENT History: Reports: Cataract, Impaired Vision Cardiovascular History: Reports: High Cholesterol, Hypertension Gastrointestinal History: Reports: Chronic Constipation, GERD, Other (See Below) Other Gastrointestinal History: gastric cancer Genitourinary History: Reports: BPH, Chronic Renal Insuffiency, Dialysis, Renal Disease Musculoskeletal History: Reports: Arthritis, Back Pain, Chronic, Other (See Below) Other Musculoskeletal History: compression fractures Neurological History: Reports: None Endocrine/Metabolic History: Reports: Diabetes, Type II, IDDM Hematologic History: Reports: B12 Deficiency Immunologic History: Reports: Immunosuppression Oncologic (Cancer) History: Reports: Other (See Below) Other Oncologic History: Gastric - Infectious Disease History Infectious Disease History: Reports: C-Difficile - Past Surgical History HEENT Surgical History: Reports: Cataract Surgery Cardiovascular Surgical History: Reports: Other (See Below) Other Cardiovascular Surgeries/Procedures: FEMORAL STENT, R ARM FISTULA, L CHEST PORT, R CHEST NICHOLE DIALYSIS CATHETER GI Surgical History: Reports: Appendectomy, Cholecystectomy, EGD, Other (See Below) Other GI Surgeries/Procedures: ULCERS CLIPPED, 1/3 of stomach remaining d/t cancer Male Surgical History: Reports: None Endocrine Surgical History: Reports: None Neurological Surgical History: Reports: Vertebroplasty Musculoskeletal Surgical History: Reports: Amputation, Hip Replacement, Other (See Below) Other Musculoskeletal Surgeries/Procedures:: elbow surgery. vertebralplasty X3. R DISTAL TOE AMPUTATION Oncologic Surgical History: Reports: None Social & Family History - Family History Family Medical History: No Pertinent Family History - Tobacco Use Tobacco Use Status *Q: Never Tobacco User - Caffeine Use Caffeine Use: Reports: Coffee - Recreational Drug Use Recreational Drug Use: No ED ROS GENERAL - Review of Systems Review Of Systems: See Below Constitutional: Reports: Weakness HEENT: Reports: No Symptoms Respiratory: Reports: No Symptoms Cardiovascular: Reports: No Symptoms Endocrine: Reports: No Symptoms GI/Abdominal: Reports: No Symptoms Musculoskeletal: Reports: Leg Pain (right), Muscle Pain. Denies: Neck Pain, Back Pain Skin: Reports: No Symptoms Neurological: Reports: No Symptoms. Denies: Dizziness, Headache, Pre-Existing Deficit Psychiatric: Reports: No Symptoms ED EXAM, GENERAL - Physical Exam Exam: See Below Exam Limited By: No Limitations General Appearance: Alert, Mild Distress Ears: Normal External Exam, Hearing Grossly Normal Nose: Normal Inspection, No Blood Throat/Mouth: Normal Inspection, Normal Voice, No Airway Compromise Head: Atraumatic, Normocephalic Neck: Normal Inspection, Supple. No: Tender Midline Respiratory/Chest: No Respiratory Distress, Lungs Clear, Normal Breath Sounds, No Accessory Muscle Use Cardiovascular: Regular Rate, Rhythm GI/Abdominal: Normal Bowel Sounds, Soft, Non-Tender, No Distention Extremities: Normal Capillary Refill, Pedal Edema, Leg Pain, Limited Range of Motion Neurological: Alert, Oriented, Normal Cognition, No Motor/Sensory Deficits Psychiatric: Normal Affect, Normal Mood Skin Exam: Warm, Dry, Intact, Normal Color, No Rash Course - Vital Signs Last Recorded V/S: Last Vital Signs Temp 97.5 F 07/08/20 14:01 Pulse 93 07/08/20 14:01 Resp 18 07/08/20 14:01 BP 154/97 H 07/08/20 14:01 Pulse Ox 93 L 07/08/20 14:01 - Orders/Labs/Meds Orders: Active Orders 24 hr Category Date Time Status Femur Min 2V Rt [CR] Stat Exams 07/08/20 14:10 Taken Labs: Laboratory Tests 07/08/20 07/08/20 Range/Units 14:52 14:54 WBC 4.4 L (5.0-10.0) 10^3/uL RBC 3.23 L (4.50-6.00) 10^6/uL Hgb 9.6 L (14.0-18.0) g/dL Hct 31.5 L (40.0-54.0) % MCV 97.5 H (82.0-94.0) fL MCH 29.7 (27.0-32.0) pg MCHC 30.5 L (33.0-38.0) g/dL RDW Coeff of Jaida 14.0 (11.0-15.0) % Plt Count 102 L (150-400) 10^3/uL Neut % (Auto) 75.7 (35-85) % Lymph % (Auto) 11.6 (10-55) % [place] % (Auto) 8.6 (0-16) % Eos % (Auto) 3.9 (0-5) % Baso % (Auto) 0.2 (0-3) % Neut # (Auto) 3.33 (1.80-7.00) 10^3/uL Lymph # (Auto) 0.51 L (1.00-4.80) 10^3/uL [place] # (Auto) 0.38 (0.00-0.80) 10^3/uL Eos # (Auto) 0.17 (0.00-0.45) 10^3/uL Baso # (Auto) 0.01 10^3/uL Sodium 141 (136-145) mEq/L Potassium 3.9 (3.5-5.0) mEq/L Chloride 97 L (98-106) mEq/L Carbon Dioxide 32 (21-32) mmol/L BUN 46 H (7-18) mg/dL Creatinine 8.0 H* (0.7-1.3) mg/dL Est Cr Clr Drug Dosing 7.73 mL/min Estimated GFR (MDRD) 7 L (>=60) mL/min Glucose 275 H D (75-99) mg/dL Calcium 9.0 (8.4-10.1) mg/dL Meds: Medications Discontinued Medications Generic Name Dose Route Start Last Admin Trade Name Freq PRN Reason Stop Dose Admin Fentanyl 50 mcg 07/08/20 15:12 Fentanyl 50 Mcg/Ml Sdv IVPUSH 07/08/20 15:13 ONETIME ONE Departure - Departure Time of Disposition: 15:49 Disposition: DC/Tfer to [facility] 02 Clinical Impression: Chronic anemia Femur fracture, right Qualifiers: Encounter type: initial encounter Femur location: subtrochanteric Fracture type: closed Fracture alignment: nondisplaced Qualified Code(s): S72.24XA - Nondisplaced subtrochanteric fracture of right femur, initial encounter for closed fracture Renal failure, chronic Qualifiers: Chronic kidney disease stage: unspecified stage Qualified Code(s): N18.9 - Chronic kidney disease, unspecified - Discharge Information Forms: ED Department Discharge Sepsis Event Note (ED) - Evaluation Sepsis Screening Result: No Definite Risk - Focused Exam Vital Signs: Vital Signs Temp Pulse Resp BP Pulse Ox 07/08/20 14:01 97.5 F 93 18 154/97 H 93 L - Problem List & Annotations (1) Femur fracture, right SNOMED Code(s): 32481941, 60423734458656425 Code(s): S72.91XA - UNSP FRACTURE OF RIGHT FEMUR, INIT FOR CLOS FX Status: Acute Qualifiers: Encounter type: initial encounter Femur location: subtrochanteric Fracture type: closed Fracture alignment: nondisplaced Qualified Code(s): S72.24XA - Nondisplaced subtrochanteric fracture of right femur, initial encounter for closed fracture (2) Chronic anemia SNOMED Code(s): 764893525 Code(s): D64.9 - ANEMIA, UNSPECIFIED Status: Acute (3) Renal failure, chronic SNOMED Code(s): 28260721 Code(s): N18.9 - CHRONIC KIDNEY DISEASE, UNSPECIFIED Status: Acute Qualifiers: Chronic kidney disease stage: unspecified stage Qualified Code(s): N18.9 - Chronic kidney disease, unspecified - Problem List Review Problem List Initiated/Reviewed/Updated: Yes - My Orders Last 24 Hours: My Active Orders 07/08/20 14:10 Femur Min 2V Rt [CR] Stat - Assessment/Plan Last 24 Hours: My Active Orders 07/08/20 14:10 Femur Min 2V Rt [CR] Stat Plan: X-ray of the right femur did demonstrate a non displaced fracture of the proximal femur. Consulted with Dr. Lester, orthopedic surgeon, at [facility] in [place]. Dr. Lester felt further imaging was warranted to include CT scan and serial images in regards to healing progression. D/t patient being unable to ambulate and high risk of falls at home, patient will need hospital admission. With chronic renal failure on dialysis, it was felt patient should be transferred to [facility] in [place] for further evaluation and medical management; to include physical therapy, imaging, ortho consultation and dial ysis. Dr. Merlos, ER physician was notified via [facility] and he kindly accepted transfer. BLS transfer via [facility] to [facility] in [place]. Patient will receive 50mcg of Fentanyl prior to transfer for pain control. Risks and benefits of transfer discussed with Phi and his . Risks of transfer included MVA, worsening discomfort/pain, . Benefits of transfer included ortho specialty care, hospitalist, dialysis. Risks of non-transfer included no specialty care, instability of fracture. Benefits of non-transfer included staying close to home, familiar environment. and Phi both agreed the benefits of transfer outweighed the risks.
[2020-07-08] MEDS ORDERED: fentaNYL 50 MCG/ML SDV IVPUSH ONE (15:12)
== END 2020-07-08 16:05 ==
LOC: CC.ED 13:55
DX: S72.24XA Nondisplaced subtrochanteric fracture of right femur, initial encounter for closed fracture (principal); I12.0 Hypertensive chronic kidney disease with stage 5 chronic kidney disease or end stage renal disease; E11.22 Type 2 diabetes mellitus with diabetic chronic kidney disease; N18.6 End stage renal disease; D63.1 Anemia in chronic kidney disease; E78.00 Pure hypercholesterolemia, unspecified; K21.9 Gastro-esophageal reflux disease without esophagitis; N40.0 Benign prostatic hyperplasia without lower urinary tract symptoms; Z99.2 Dependence on renal dialysis; Z88.8 Allergy status to other drugs, medicaments and biological substances; Z79.4 Long term (current) use of insulin; Z79.899 Other long term (current) drug therapy; W01.198A Fall on same level from slipping, tripping and stumbling with subsequent striking against other object, initial encounter; Y93.01 Activity, walking, marching and hiking; Y92.009 Unspecified place in unspecified non-institutional (private) residence as the place of occurrence of the external cause
CPT/HCPCS: 36415; 73552; 80048; 85025; 93005; 93010; 96374; 99284; 99285; J3010

== ENCOUNTER 2020-08-16 15:03 | Observation (INO) | payer MEDICARE, BC ==
[2020-08-16 15:23] LABS: CHLORIDE,CL 98 mEq/L (98-106); SODIUM,NA 142 mEq/L (136-145)
[2020-08-16] MEDS ORDERED: Sodium Chloride 0.9% 10 ML Syringe FLUSH PRN (17:34)
[2020-08-16] MEDS ORDERED: cefTRIAXone 1 GM Vial IVPUSH SCH (18:00)
[2020-08-16] MEDS ORDERED: Non-Formulary Medication 1 Each (Insulin Aspart [Novolog] 100 UNIT/ML Pen) SUBCUT SCH (18:15)
[2020-08-16] MEDS: metroNIDAZOLE/Normal Saline 500 MG in Premix Bag 1 BAG IV SCH (18:26)
[2020-08-16] MEDS ORDERED: TAMSULOSIN 0.4 MG PO SCH (18:30)
[2020-08-16] MEDS: TAMSULOSIN 0.4 MG PO SCH (18:33)
[2020-08-16] MEDS ORDERED: 50% Dextrose in Water 50 ML Syringe IV PRN (18:40)
[2020-08-16] MEDS ORDERED: Glucagon,Human Recombinant 1 MG Vial IM PRN (18:40)
[2020-08-16] MEDS ORDERED: ATORVASTATIN 40 MG PO SCH (20:00)
[2020-08-16] MEDS: Insulin Lispro 100 Units/ML 3 ML Vial SUBCUT SCH (20:11)
[2020-08-17] MEDS: metroNIDAZOLE/Normal Saline 500 MG in Premix Bag 1 BAG IV SCH ×2 (00:19→08:20)
[2020-08-17] MEDS ORDERED: Pantoprazole 40 MG Tab.CR **PT OWN PO SCH (07:00)
[2020-08-17] MEDS ORDERED: NIFEDIPINE 30 MG PO SCH (08:00)
[2020-08-17] MEDS ORDERED: BUMETANIDE 2 MG PO SCH (08:00)
[2020-08-17] MEDS: TAMSULOSIN 0.4 MG PO SCH (08:13)
[2020-08-17] MEDS: Insulin Lispro 100 Units/ML 3 ML Vial SUBCUT SCH ×2 (08:19→11:40)
[2020-08-17 08:20] VITALS: BP 159/74
[2020-08-17] MEDS ORDERED: TAMSULOSIN 0.4 MG PO SCH (08:30)
[2020-08-17 10:39] VITALS: PULSE 97
--- NOTE | 2020-08-18 07:11 | PCM.DCSUM1 ---
Discharge Summary - Hospital Course HPI Initial Comments: Madan is a 79 yo male who was admitted to the hospital as a direct admit from the clinic yesterday. Patient had been having LLQ abdominal pain and was admitted observation for diverticulitis rule out. Diagnosis: Stroke: No - Discharge Data Discharge Date: 08/17/20 Discharge Disposition: Home, Self-Care 01 Condition: Good - Referral to Home Health Primary Care Physician: Raffi Malone MD - Discharge Diagnosis/Problem(s) (1) Abdominal pain SNOMED Code(s): 43071570 ICD Code: R10.9 - UNSPECIFIED ABDOMINAL PAIN Status: Resolved Qualifiers: Abdominal location: left lower quadrant Qualified Code(s): R10.32 - Left lower quadrant pain - Patient Instructions Diet: Usual Diet as Tolerated Activity: As Tolerated Notify Provider of: Fever, Increased Pain, Nausea and/or Vomiting - Discharge Plan *PRESCRIPTION DRUG MONITORING PROGRAM REVIEWED*: No *COPY OF PRESCRIPTION DRUG MONITORING REPORT IN PATIENT CHRISTINA: No Home Medications: Home Meds Folic Acid 1 mg PO DAILY 01/14/14 [History] atorvaSTATin [Lipitor] 40 mg PO BEDTIME 01/14/14 [History] Tamsulosin [Flomax] 0.4 mg PO BID 07/20/17 [History] Cyanocobalamin (Vitamin B-12) [Cyanocobalamin Injection] 1 ml IM Q30D 05/14/18 [History] Pantoprazole [ProTONIX] 40 mg PO DAILY 05/14/18 [History] Insulin Aspart [NovoLOG] 6 - 10 unit SUBCUT ASDIRECTED 05/16/18 [History] Bumetanide [Bumex] 2 mg PO BID 11/13/19 [History] Calcium Acetate 667 mg PO TIDMEALS 07/08/20 [History] Dicyclomine [Bentyl] 10 mg PO Q6HR PRN 07/08/20 [History] NIFEdipine [Nifedipine ER] 30 mg PO DAILY 07/08/20 [History] Vit A/Vit C/Vit E/Zinc/Copper [Preservision] 2 each PO DAILY 07/08/20 [History] Referrals: Raffi Malone MD [Primary Care Provider] - (1 week follow up, discuss CT results) - Discharge Summary/Plan Comment DC Time >30 min.: Yes Discharge Summary/Plan Comment: Phi looks well this morning. CT scan did not show any diverticulitis or infectious process. Concerns of enlarged peripancreatic lymph node which was discussed with and Don. Patient will be discharged home today in satisfactory condition. No further abdominal pain. Patient is to stay on Miralax daily with history of constipation. . - General Info Date of Service: 08/17/20 Subjective Update: Madan is doing well this morning. Has no complaints. States he had a good appetite and did eat all his breakfast this morning. States he would like to go home today if he could. Had CT scan this morning of the abdomen but states he doesn't have any pain anymore. No fevers or set backs through out the night. Functional Status: Reports: Pain Controlled - Review of Systems General: Reports: No Symptoms HEENT: Reports: No Symptoms Pulmonary: Reports: No Symptoms Cardiovascular: Reports: No Symptoms Gastrointestinal: Denies: Abdominal Pain, Decreased Appetite, Diarrhea, Nausea, Vomiting Genitourinary: Reports: No Symptoms Musculoskeletal: Reports: No Symptoms Skin: Reports: No Symptoms Neurological: Reports: No Symptoms Psychiatric: Reports: No Symptoms - Patient Data Vitals - Most Recent: Last Vital Signs Temp 98.7 F 08/17/20 08:00 Pulse 97 08/17/20 08:00 Resp 18 08/17/20 08:00 BP 159/74 H 08/17/20 08:14 Pulse Ox 94 L 08/17/20 08:00 Weight - Most Recent: 202 lb 6.4 oz Lab Results - Last 24 hrs: Laboratory Results - last 24 hr 08/17/20 08/17/20 Range/Units 08:09 11:38 POC Glucose 168 H 241 H (75-105) mg/dL Med Orders - Current: Current Medications Discontinued Medications Ceftriaxone Sodium (Ceftriaxone 1 Gm Vial) 1 gm IVPUSH DAILY@1800 [facility] Last Admin: 08/16/20 18:17 Dose: 1 gm Documented by: Dextrose/Water (50% Dextrose In Water 50 Ml Syringe) 50 ml IV ASDIRECTED PRN PRN Reason: Hypoglycemia Glucagon (Glucagon,Human Recombinant 1 Mg Vial) 1 mg IM ASDIRECTED PRN PRN Reason: Hypoglycemia Heparin Sodium (Porcine) (Heparin Sodium 100 Units/Ml 5 Ml Syringe) 500 units FLUSH TID@0000,0800,1600 [facility] Last Admin: 08/17/20 09:50 Dose: 500 units Documented by: Metronidazole 500 mg/ Premix 100 mls @ 100 mls/hr IV TID@0000,0800,1600 [facility] Last Admin: 08/17/20 08:20 Dose: 100 mls/hr Documented by: Insulin Human Lispro (Insulin Lispro 100 Units/Ml 3 Ml Vial) 0 unit SUBCUT WITHMEALSANDBED [facility]; Protocol Last Admin: 08/17/20 11:40 Dose: 2 units Documented by: Nifedipine (Nifedipine 30 Mg Tab.Er Pt Own) 30 mg PO DAILY [facility] Last Admin: 08/17/20 08:14 Dose: 30 mg Documented by: Non-Formulary Medication (Insulin Aspart [Novolog]) 6 - 10 unit SUBCUT ASDIRECTED [facility] Atorvastatin [ Lipitor] 40 Mg Tab Pt Own 0 mg PO BEDTIME [facility] Last Admin: 08/16/20 20:11 Dose: 40 mg Documented by: Bumetanide [Bumex] 2 Mg Tablet Pt Own 0 mg PO BIDDIURETIC [facility] Last Admin: 08/17/20 08:14 Dose: 2 mg Documented by: Pantoprazole Sodium (Pantoprazole 40 Mg Tab.Cr Pt Own) 40 mg PO ACBREAKF AST [facility] Last Admin: 08/17/20 08:13 Dose: 40 mg Documented by: Sodium Chloride (Sodium Chloride 0.9% 10 Ml Syringe) 10 ml FLUSH ASDIRECTED PRN PRN Reason: Keep Vein Open Tamsulosin HCl (Tamsulosin 0.4 Mg Cap.Er Pt Own) 0.8 mg PO PCDINNER [facility] Tamsulosin HCl (Tamsulosin 0.4 Mg Cap.Er Pt Own) 0.4 mg PO BIDPC [facility] Tamsulosin HCl (Tamsulosin 0.4 Mg Cap.Er Pt Own) 0.4 mg PO BIDPC [facility] Last Admin: 08/17/20 08:13 Dose: 0.4 mg Documented by: - Exam General: Reports: Alert, Oriented, Cooperative, No Acute Distress Neck: Reports: Supple Lungs: Reports: Clear to Auscultation, Normal Respiratory Effort Cardiovascular: Reports: Regular Rate, Regular Rhythm GI/Abdominal Exam: Normal Bowel Sounds, Soft, Non-Tender, No Organomegaly, No Distention Extremities: Normal Inspection, Pedal Edema Skin: Reports: Warm, Dry, Intact Psy/Mental Status: Reports: Alert, Normal Affect, Normal Mood
== END 2020-08-17 13:42 | disposition home or self-care (01) ==
LOC: CC.FCMC 15:03 → CC.MS 16:00 → UNDOADMOB 16:00 → CC.MS 17:34
PROVIDERS: ADMIT Family Medicine; ATTEND Family Medicine
DX: R10.32 Left lower quadrant pain (principal); E11.22 Type 2 diabetes mellitus with diabetic chronic kidney disease; I12.9 Hypertensive chronic kidney disease with stage 1 through stage 4 chronic kidney disease, or unspecified chronic kidney disease; N18.9 Chronic kidney disease, unspecified; R16.1 Splenomegaly, not elsewhere classified; N26.1 Atrophy of kidney (terminal); E78.5 Hyperlipidemia, unspecified; Z88.8 Allergy status to other drugs, medicaments and biological substances; Z79.4 Long term (current) use of insulin; Z79.899 Other long term (current) drug therapy; Z87.891 Personal history of nicotine dependence
CPT/HCPCS: 36415; 74019; 74176; 80053; 82947; 85025; 86140; 96365; 96366; 96375; A9270-GY; G0378; J0696; J1642; J1815-GY; J3490

== ENCOUNTER 2021-02-17 10:48 | Inpatient (IN) | payer MEDICARE, BC ==
--- NOTE | 2021-02-17 12:34 | EDM.PDOC ---
ED HPI GENERAL MEDICAL PROBLEM - General Chief Complaint: General Stated Complaint: fall Time Seen by Provider: 02/17/21 11:55 Source of Information: Reports: Patient, Provider, RN History Limitations: Reports: No Limitations - History of Present Illness INITIAL COMMENTS - FREE TEXT/NARRATIVE: Madan is an 80 yo male who presents to the ED via EMS after having a presyncopal episode at home. States he was in the bathroom and got lightheaded which he was able to assist himself to the ground. He states didn't fall or hit his head. States he has been feeling weak over the last few days. Admits his did lose her sense of taste but hasn't been COVID tested. He was suppose to go to dialysis in [place] today. States he goes every Saturday and Saturday. He denies any fevers. States he does get winded with exertion but currently not at rest. Denies any chest pain. States he does have a slight cough. 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 - Related Data Allergies Allergy/AdvReac Type Severity Reaction Status Date / Time metoclopramide [From Reglan] AdvReac Headache Verified 02/17/21 12:13 Home Meds: Home Meds Folic Acid 1 mg PO DAILY 01/14/14 [History] Tamsulosin [Flomax] 0.4 mg PO BID 07/20/17 [History] Cyanocobalamin (Vitamin B-12) [Cyanocobalamin Injection] 1 ml IM Q30D 05/14/18 [History] Insulin Aspart [NovoLOG] 6 - 10 unit SUBCUT ASDIRECTED 05/16/18 [History] Bumetanide [Bumex] 2 mg PO BID PRN 11/13/19 [History] Dicyclomine [Bentyl] 10 mg PO Q6HR PRN 07/08/20 [History] NIFEdipine [Nifedipine ER] 30 mg PO DAILY 07/08/20 [History] Vit A/Vit C/Vit E/Zinc/Copper [Preservision] 2 each PO DAILY 07/08/20 [History] Past Medical History HEENT History: Reports: Cataract, Impaired Vision Cardiovascular History: Reports: High Cholesterol, Hypertension Gastrointestinal History: Reports: Chronic Constipation, GERD, Other (See Below) Other Gastrointestinal History: gastric cancer Genitourinary History: Reports: BPH, Chronic Renal Insuffiency, Dialysis, Renal Disease Musculoskeletal History: Reports: Arthritis, Back Pain, Chronic, Other (See Below) Other Musculoskeletal History: compression fractures Neurological History: Reports: None Endocrine/Metabolic History: Reports: Diabetes, Type II, IDDM Hematologic History: Reports: B12 Deficiency Immunologic History: Reports: Immunosuppression Oncologic (Cancer) History: Reports: Other (See Below) Other Oncologic History: Gastric - Infectious Disease History Infectious Disease History: Reports: C-Difficile - Past Surgical History HEENT Surgical History: Reports: Cataract Surgery Cardiovascular Surgical History: Reports: Other (See Below) Other Cardiovascular Surgeries/Procedures: FEMORAL STENT, R ARM FISTULA, L CHEST PORT, R CHEST NICHOLE DIALYSIS CATHETER GI Surgical History: Reports: Appendectomy, Cholecystectomy, EGD, Other (See Below) Other GI Surgeries/Procedures: ULCERS CLIPPED, 1/3 of stomach remaining d/t cancer Male Surgical History: Reports: None Endocrine Surgical History: Reports: None Neurological Surgical History: Reports: Vertebroplasty Musculoskeletal Surgical History: Reports: Amputation, Hip Replacement, Other (See Below) Other Musculoskeletal Surgeries/Procedures:: elbow surgery. vertebralplasty X3. R DISTAL TOE AMPUTATION Oncologic Surgical History: Reports: None Social & Family History - Family History Family Medical History: No Pertinent Family History - Tobacco Use Tobacco Use Status *Q: Never Tobacco User Second Hand Smoke Exposure: No - Caffeine Use Caffeine Use: Reports: Coffee ED ROS GENERAL - Review of Systems Review Of Systems: See Below Constitutional: Reports: Weakness, Fatigue, Decreased Appetite. Denies: Fever, Chills HEENT: Reports: No Symptoms Respiratory: Reports: Cough. Denies: Shortness of Breath, Wheezing, Sputum Cardiovascular: Reports: Dyspnea on Exertion, Edema, Lightheadedness. Denies: Chest Pain, Orthopnea, Palpitations, Syncope GI/Abdominal: Reports: No Symptoms, Diarrhea, Decreased Appetite. Denies: Bloody Stool, Constipation, Distension, Hematochezia, Melena, Nausea, Vomiting : Reports: No Symptoms Musculoskeletal: Reports: No Symptoms Skin: Reports: No Symptoms Neurological: Reports: Headache, Weakness, Gait Disturbance. Denies: Confusion ED EXAM, GENERAL - Physical Exam Exam: See Below Exam Limited By: No Limitations General Appearance: Alert, No Apparent Distress Eye Exam: Bilateral Eye: EOMI, Normal Inspection Ears: Normal External Exam Nose: Normal Inspection, No Blood Throat/Mouth: Normal Inspection, Normal Lips, Normal Oropharynx, Normal Voice, No Airway Compromise Head: Atraumatic, Normocephalic Respiratory/Chest: No Respiratory Distress, Decreased Breath Sounds, Crackles (bases). No: Rales, Wheezing, Accessory Muscle Use Cardiovascular: Regular Rate, Rhythm GI/Abdominal: Normal Bowel Sounds, Soft, Non-Tender, No Distention, No Mass Extremities: Pedal Edema Neurological: Alert, Oriented, Normal Cognition, No Motor/Sensory Deficits Psychiatric: Normal Affect, Normal Mood Skin Exam: Warm, Dry, Intact, No Rash, Pallor Course - Vital Signs Last Recorded V/S: Last Vital Signs Temp 98 F 02/17/21 17:00 Pulse 73 02/17/21 17:00 Resp 18 02/17/21 17:00 BP 115/52 L 02/17/21 17:00 Pulse Ox 95 02/17/21 13:36 - Orders/Labs/Meds Orders: Active Orders 24 hr Category Date Time Status Chest 1V Frontal [CR] Stat Exams 02/17/21 11:24 Taken CULTURE BLOOD [BC] Stat Lab 02/17/21 11:47 Received CULTURE BLOOD [BC] Stat Lab 02/17/21 11:47 Received Blood Culture x2 Reflex Set [OM.PC] Stat Oth 02/17/21 11:24 Ordered Medication Orders Acetaminophen (Acetaminophen 325 Mg Tab) 650 mg PO Q4H PRN PRN Reason: Pain (Mild 1-3)/fever Insulin Human Lispro (Insulin Lispro 100 Units/Ml 3 Ml Vial) 0 unit SUBCUT TIDMEALS [facility]; Protocol Nifedipine (Nifedipine 30 Mg Tab.Er) 30 mg PO DAILY [facility] Tamsulosin HCl (Tamsulosin 0.4 Mg Cap.Er) 0.4 mg PO BID [facility] Labs: Laboratory Tests 02/17/21 02/17/21 02/17/21 Range/Units 10:51 11:47 11:47 WBC 1.6 L* (4.0-11.0) 10^3/uL RBC 1.81 L (4.50-6.00) x10^6/uL Hgb 5.4 L* (14.0-18.0) g/dL Hct 17.9 L* (42.0-52.0) % MCV 98.9 H (83.0-97.0) fL MCH 29.8 (27.0-32.0) pg MCHC 30.2 L (32.0-36.0) g/dL RDW Coeff of Jaida 16.3 H (11.0-15.0) % Plt Count 52 L (150-400) 10^3/uL Immature Gran % (Auto) 1.2 (0.0-4.9) % Neut % (Auto) 78.4 H (41-71) % Lymph % (Auto) 6.8 L (24-44) % [place] % (Auto) 11.1 H (0-10) % Eos % (Auto) 1.9 (0-6) % Baso % (Auto) 0.6 (0-1) % Neut # (Auto) 1.27 L (1.80-8.00) x10^3/uL Lymph # (Auto) 0.11 L (0.60-5.00) 10^3/uL [place] # (Auto) 0.18 (0.00-1.50) 10^3/uL Eos # (Auto) 0.03 (0.00-1.50) 10^3/uL Baso # (Auto) 0.01 (0.00-0.50) 10^3/uL Immature Gran # (Auto) 0.02 (0.00-0.49) 10^3/uL PT 12.3 (9.7-12.3) SEC INR 1.14 (0.92-1.18) D-Dimer, Quantitative 1.36 H (0.00-0.50) Sodium (136-145) mEq/L Potassium (3.5-5.0) mEq/L Chloride (98-106) mEq/L Carbon Dioxide (21-32) mmol/L BUN (7-18) mg/dL Creatinine (0.7-1.3) mg/dL Est Cr Clr Drug Dosing mL/min Estimated GFR (MDRD) (>=60) mL/min Glucose (75-99) mg/dL Lactic Acid (0.4-2.0) mmol/L Calcium (8.4-10.1) mg/dL Magnesium (1.8-2.4) mg/dL Total Bilirubin (0.0-1.0) mg/dL AST (15-37) U/L ALT (12-78) U/L Alkaline Phosphatase (46-116) U/L Troponin I High Sens (<=76) pg/mL C-Reactive Protein (0.2-0.8) mg/dL Total Protein (6.4-8.2) g/dL Albumin (3.4-5.0) g/dL SARS CoV-2 RNA Rapid BLANCHE Positive H (NEGATIVE) 02/17/21 02/17/21 02/17/21 Range/Units 11:47 11:47 11:50 WBC (4.0-11.0) 10^3/uL RBC (4.50-6.00) x10^6/uL Hgb (14.0-18.0) g/dL Hct (42.0-52.0) % MCV (83.0-97.0) fL MCH (27.0-32.0) pg MCHC (32.0-36.0) g/dL RDW Coeff of Jaida (11.0-15.0) % Plt Count (150-400) 10^3/uL Immature Gran % (Auto) (0.0-4.9) % Neut % (Auto) (41-71) % Lymph % (Auto) (24-44) % [place] % (Auto) (0-10) % Eos % (Auto) (0-6) % Baso % (Auto) (0-1) % Neut # (Auto) (1.80-8.00) x10^3/uL Lymph # (Auto) (0.60-5.00) 10^3/uL [place] # (Auto) (0.00-1.50) 10^3/uL Eos # (Auto) (0.00-1.50) 10^3/uL Baso # (Auto) (0.00-0.50) 10^3/uL Immature Gran # (Auto) (0.00-0.49) 10^3/uL PT (9.7-12.3) SEC INR (0.92-1.18) D-Dimer, Quantitative (0.00-0.50) Sodium 140 (136-145) mEq/L Potassium 4.9 D (3.5-5.0) mEq/L Chloride 100 (98-106) mEq/L Carbon Dioxide 24 (21-32) mmol/L BUN 81 H* D (7-18) mg/dL Creatinine 7.3 H* (0.7-1.3) mg/dL Est Cr Clr Drug Dosing 8.33 mL/min Estimated GFR (MDRD) 7 L (>=60) mL/min Glucose 180 H (75-99) mg/dL Lactic Acid 2.9 H (0.4-2.0) mmol/L Calcium 8.4 (8.4-10.1) mg/dL Magnesium 1.6 L (1.8-2.4) mg/dL Total Bilirubin 0.6 (0.0-1.0) mg/dL AST 15 (15-37) U/L ALT 13 (12-78) U/L Alkaline Phosphatase 166 H (46-116) U/L Troponin I High Sens 36.0 (<=76) pg/mL C-Reactive Protein 19.6 H (0.2-0.8) mg/dL Total Protein 5.4 L (6.4-8.2) g/dL Albumin 2.1 L (3.4-5.0) g/dL SARS CoV-2 RNA Rapid BLANCHE (NEGATIVE) Meds: Medications Generic Name Dose Route Start Last Admin Trade Name Freq PRN Reason Stop Dose Admin Acetaminophen 650 mg 02/17/21 13:36 Acetaminophen 325 Mg Tab PO Q4H PRN Pain (Mild 1-3)/fever Insulin Human Lispro 0 unit 02/17/21 17:30 Insulin Lispro 100 Units/Ml 3 Ml Vial SUBCUT TIDMEALS [facility] Protocol Nifedipine 30 mg 02/18/21 08:00 Nifedipine 30 Mg Tab.Er PO DAILY [facility] Tamsulosin HCl 0.4 mg 02/17/21 20:00 Tamsulosin 0.4 Mg Cap.Er PO BID [facility] Discontinued Medications Generic Name Dose Route Start Last Admin Trade Name Freq PRN Reason Stop Dose Admin Furosemide 100 mg 02/17/21 13:36 02/17/21 15:05 Furosemide 100 Mg/10 Ml Sdv IVPUSH 02/17/21 13:37 100 mg ONETIME ONE Administration Heparin Sodium (Porcine) 5,000 units 02/18/21 08:00 Heparin Sodium 5,000 Units/Ml Vial SUBCUT Q12H [facility] Sodium Chloride 250 mls @ 125 mls/hr 02/17/21 14:45 02/17/21 16:06 Normal Saline IV 02/17/21 16:44 125 mls/hr ONETIME ONE Administration Non-Formulary Medication 6 - 10 unit 02/17/21 13:36 Insulin Aspart [Novolog] SUBCUT ASDIRECTED [facility] Pantoprazole Sodium 80 mg 02/17/21 16:44 02/17/21 16:53 Pantoprazole 40 Mg Vial IVPUSH 02/17/21 16:45 80 mg ONETIME ONE Administration Departure - Departure Time of Disposition: 12:40 Disposition: Admitted As Inpatient 66 Clinical Impression: COVID-19, Chronic anemia Renal failure, chronic Qualifiers: Chronic kidney disease stage: unspecified stage Qualified Code(s): N18.9 - Chronic kidney disease, unspecified - Discharge Information Sepsis Event Note (ED) - Evaluation Sepsis Screening Result: No Definite Risk - Focused Exam Vital Signs: Vital Signs Temp Pulse Resp BP Pulse Ox 02/17/21 12:12 82 18 107/42 L 96 02/17/21 11:51 98 F 83 18 101/64 86 L - Problem List & Annotations (1) COVID-19 SNOMED Code(s): 401806925 Code(s): U07.1 - COVID-19 Status: Acute Current Visit: Yes (2) Chronic anemia SNOMED Code(s): 427464729 Code(s): D64.9 - ANEMIA, UNSPECIFIED Status: Acute Current Visit: Yes (3) Renal failure, chronic SNOMED Code(s): 89174782 Code(s): N18.9 - CHRONIC KIDNEY DISEASE, UNSPECIFIED Status: Acute Current Visit: Yes Qualifiers: Chronic kidney disease stage: unspecified stage Qualified Code(s): N18.9 - Chronic kidney disease, unspecified - My Orders Last 24 Hours: My Active Orders 02/17/21 11:24 Chest 1V Frontal [CR] Stat Blood Culture x2 Reflex Set [OM.PC] Stat 02/17/21 11:47 CULTURE BLOOD [BC] Stat CULTURE BLOOD [BC] Stat - Assessment/Plan Admission H&P: Please use this note as an admission H&P Last 24 Hours: My Active Orders 02/17/21 11:24 Chest 1V Frontal [CR] Stat Blood Culture x2 Reflex Set [OM.PC] Stat 02/17/21 11:47 CULTURE BLOOD [BC] Stat CULTURE BLOOD [BC] Stat Plan: Patient is currently on 2 Liters of oxygen per [place]. Upon arrival he was in the mid 80's. Laboratory work did show he was COVID positive. Hgb was low at 5.4. CRP, Lactic acid elevated. Creatinine 7.3. WBC 1600. Consulted with Dr. 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 Unable to initially accept patient at this time d/t no available beds. Will call if a bed becomes available. Dr. Winkler recommend giving 2 units of pRBC's with 100mg of Lasix. Will admit to acute care at this time. Discussed findings with Madan and his daughter today.
[2021-02-17] MEDS ORDERED: Furosemide 100 MG/10 ML SDV IVPUSH ONE (13:36)
[2021-02-17] MEDS ORDERED: Acetaminophen 325 MG Tab PO PRN (13:36)
[2021-02-17] MEDS ORDERED: Non-Formulary Medication 1 Each (Insulin Aspart [Novolog] 100 UNIT/ML Pen) SUBCUT SCH (13:36)
[2021-02-17] MEDS ORDERED: Sodium Chloride 0.9% 250 ML IV ONE (14:45)
[2021-02-17] MEDS ORDERED: Pantoprazole 40 MG Vial IVPUSH ONE (16:44)
[2021-02-17 17:01] VITALS: BP 115/52; PULSE 73
[2021-02-17] MEDS ORDERED: Insulin Lispro 100 Units/ML 3 ML Vial SUBCUT SCH (17:30)
--- NOTE | 2021-02-17 17:57 | PCM.DCSUM1 ---
Discharge Summary - Hospital Course HPI Initial Comments: Madan is an 80 yo male who presented to the ED a early this afternoon via EMS after having a presyncopal episode at home. He was in the bathroom and got lightheaded which he was able to assist himself to the ground. He admitted he didn't fall or hit his head. States he has been feeling weak over the last few days. Admits his did lose her sense of taste but hasn't been COVID tested. He denies any loss of taste or smell. He was suppose to go to dialysis in [place] today. States he goes every Saturday and Saturday. He denies any fevers. States he does get winded with exertion but currently not at rest. Denies any chest pain. States he does have a slight cough. - Discharge Data Discharge Date: 02/17/21 Discharge Disposition: DC/Tfer to Acute Hospital 02 Condition: Good - Referral to Home Health Primary Care Physician: Brodie Courtney PA-C - Discharge Diagnosis/Problem(s) (1) COVID-19 SNOMED Code(s): 987967387 ICD Code: U07.1 - COVID-19 Status: Acute Current Visit: Yes (2) Chronic anemia SNOMED Code(s): 377198219 ICD Code: D64.9 - ANEMIA, UNSPECIFIED Status: Acute Current Visit: Yes (3) Renal failure, chronic SNOMED Code(s): 57143789 ICD Code: N18.9 - CHRONIC KIDNEY DISEASE, UNSPECIFIED Status: Acute Current Visit: Yes Qualifiers: Chronic kidney disease stage: unspecified stage Qualified Code(s): N18.9 - Chronic kidney disease, unspecified (4) Occult blood positive stool SNOMED Code(s): 54256165 ICD Code: R19.5 - OTHER FECAL ABNORMALITIES Status: Acute Current Visit: Yes - Patient Instructions Diet: NPO - Discharge Plan Home Medications: Home Meds Folic Acid 1 mg PO DAILY 01/14/14 [History] Tamsulosin [Flomax] 0.4 mg PO BID 07/20/17 [History] Cyanocobalamin (Vitamin B-12) [Cyanocobalamin Injection] 1 ml IM Q30D 05/14/18 [History] Insulin Aspart [NovoLOG] 6 - 10 unit SUBCUT ASDIRECTED 05/16/18 [History] Bumetanide [Bumex] 2 mg PO BID PRN 11/13/19 [History] Dicyclomine [Bentyl] 10 mg PO Q6HR PRN 07/08/20 [History] NIFEdipine [Nifedipine ER] 30 mg PO DAILY 07/08/20 [History] Vit A/Vit C/Vit E/Zinc/Copper [Preservision] 2 each PO DAILY 07/08/20 [History] Forms: ED Department Discharge - Discharge Summary/Plan Comment DC Time >30 min.: Yes Total # of Minutes for Discharge Time: 45 minutes spent in consultation with patient, daughter, hospitalist. Discharge Summary/Plan Comment: Patient was transferred to the floor to start IV blood products, which patient did receive 1 unit with 100mg of Lasix. [facility] did call back a few hours later with an open bed. Consulted with Dr. Tripp, hospitalist, who did accept transfer. During consultation Dr. Tripp did ask for occult blood screen, which was unfortunately not completed on admit. Hemoccult did come back positive. Patient was given 80mg of Protonix IV prior to discharge. Patient did not receive any anticoagulation. Discussed with Madan and his daughter transferring at this time, which they both verbalized understanding. ALS crew available for transfer at this time. Risks and benefits of transfer discussed. Risks of transfer included worsening of conditions, MVA, . Benefits of transfer included appropriate level of care with specialist and interventions available. Risks of nontransfer included unable to receive dialysis, worsening COVID, bleeding, etc... Benefits of nontransfer included staying in familiar environment and close to home. - General Info Date of Service: 02/17/21 - Review of Systems General: Reports: Weakness, Fatigue. Denies: Fever, Appetite HEENT: Reports: No Symptoms Pulmonary: Reports: Cough. Denies: Sputum, Hemoptysis, Wheezing Cardiovascular: Reports: Dyspnea on Exertion, Edema, Lightheadedness. Denies: Chest Pain Gastrointestinal: Reports: Decreased Appetite, Diarrhea. Denies: Abdominal Pain, Constipation, Difficulty Swallowing, Hematochezia, Melena, Nausea, Vomiting Genitourinary: Reports: No Symptoms Musculoskeletal: Reports: No Symptoms Skin: Reports: No Symptoms Neurological: Reports: Headache, Difficulty Walking, Weakness. Denies: Confusion, Dizziness, Syncope Psychiatric: Reports: No Symptoms - Patient Data Vitals - Most Recent: Last Vital Signs Temp 98 F 02/17/21 17:00 Pulse 73 02/17/21 17:00 Resp 18 02/17/21 17:00 BP 115/52 L 02/17/21 17:00 Pulse Ox 95 02/17/21 13:36 Weight - Most Recent: 178 lb 3.2 oz I&O - Last 24 hours: Intake & Output 02/17/21 02/17/21 02/17/21 06:59 14:59 22:59 Intake Total 0 291 Balance 0 291 Lab Results - Last 24 hrs: Laboratory Results - last 24 hr 02/17/21 02/17/21 02/17/21 Range/Units 10:51 11:47 11:47 WBC 1.6 L* (4.0-11.0) 10^3/uL RBC 1.81 L (4.50-6.00) x10^6/uL Hgb 5.4 L* (14.0-18.0) g/dL Hct 17.9 L* (42.0-52.0) % MCV 98.9 H (83.0-97.0) fL MCH 29.8 (27.0-32.0) pg MCHC 30.2 L (32.0-36.0) g/dL RDW Coeff of Jaida 16.3 H (11.0-15.0) % Plt Count 52 L (150-400) 10^3/uL Immature Gran % (Auto) 1.2 (0.0-4.9) % Neut % (Auto) 78.4 H (41-71) % Lymph % (Auto) 6.8 L (24-44) % Floyd % (Auto) 11.1 H (0-10) % Eos % (Auto) 1.9 (0-6) % Baso % (Auto) 0.6 (0-1) % Neut # (Auto) 1.27 L (1.80-8.00) x10^3/uL Lymph # (Auto) 0.11 L (0.60-5.00) 10^3/uL Floyd # (Auto) 0.18 (0.00-1.50) 10^3/uL Eos # (Auto) 0.03 (0.00-1.50) 10^3/uL Baso # (Auto) 0.01 (0.00-0.50) 10^3/uL Immature Gran # (Auto) 0.02 (0.00-0.49) 10^3/uL PT 12.3 (9.7-12.3) SEC INR 1.14 (0.92-1.18) D-Dimer, Quantitative 1.36 H (0.00-0.50) Sodium (136-145) mEq/L Potassium (3.5-5.0) mEq/L Chloride (98-106) mEq/L Carbon Dioxide (21-32) mmol/L BUN (7-18) mg/dL Creatinine (0.7-1.3) mg/dL Est Cr Clr Drug Dosing mL/min Estimated GFR (MDRD) (>=60) mL/min Glucose (75-99) mg/dL Lactic Acid (0.4-2.0) mmol/L Calcium (8.4-10.1) mg/dL Magnesium (1.8-2.4) mg/dL Total Bilirubin (0.0-1.0) mg/dL AST (15-37) U/L ALT (12-78) U/L Alkaline Phosphatase (46-116) U/L Troponin I High Sens (<=76) pg/mL C-Reactive Protein (0.2-0.8) mg/dL Total Protein (6.4-8.2) g/dL Albumin (3.4-5.0) g/dL SARS CoV-2 RNA Rapid BLANCHE Positive H (NEGATIVE) Blood Type Gel Antibody Screen Crossmatch 02/17/21 02/17/21 02/17/21 Range/Units 11:47 11:47 11:50 WBC (4.0-11.0) 10^3/uL RBC (4.50-6.00) x10^6/uL Hgb (14.0-18.0) g/dL Hct (42.0-52.0) % MCV (83.0-97.0) fL MCH (27.0-32.0) pg MCHC (32.0-36.0) g/dL RDW Coeff of Jaida (11.0-15.0) % Plt Count (150-400) 10^3/uL Immature Gran % (Auto) (0.0-4.9) % Neut % (Auto) (41-71) % Lymph % (Auto) (24-44) % Floyd % (Auto) (0-10) % Eos % (Auto) (0-6) % Baso % (Auto) (0-1) % Neut # (Auto) (1.80-8.00) x10^3/uL Lymph # (Auto) (0.60-5.00) 10^3/uL Floyd # (Auto) (0.00-1.50) 10^3/uL Eos # (Auto) (0.00-1.50) 10^3/uL Baso # (Auto) (0.00-0.50) 10^3/uL Immature Gran # (Auto) (0.00-0.49) 10^3/uL PT (9.7-12.3) SEC INR (0.92-1.18) D-Dimer, Quantitative (0.00-0.50) Sodium 140 (136-145) mEq/L Potassium 4.9 D (3.5-5.0) mEq/L Chloride 100 (98-106) mEq/L Carbon Dioxide 24 (21-32) mmol/L BUN 81 H* D (7-18) mg/dL Creatinine 7.3 H* (0.7-1.3) mg/dL Est Cr Clr Drug Dosing 8.33 mL/min Estimated GFR (MDRD) 7 L (>=60) mL/min Glucose 180 H (75-99) mg/dL Lactic Acid 2.9 H (0.4-2.0) mmol/L Calcium 8.4 (8.4-10.1) mg/dL Magnesium 1.6 L (1.8-2.4) mg/dL Total Bilirubin 0.6 (0.0-1.0) mg/dL AST 15 (15-37) U/L ALT 13 (12-78) U/L Alkaline Phosphatase 166 H (46-116) U/L Troponin I High Sens 36.0 (<=76) pg/mL C-Reactive Protein 19.6 H (0.2-0.8) mg/dL Total Protein 5.4 L (6.4-8.2) g/dL Albumin 2.1 L (3.4-5.0) g/dL SARS CoV-2 RNA Rapid BLANCHE (NEGATIVE) Blood Type Gel Antibody Screen Crossmatch 02/17/21 Range/Units 13:36 WBC (4.0-11.0) 10^3/uL RBC (4.50-6.00) x10^6/uL Hgb (14.0-18.0) g/dL Hct (42.0-52.0) % MCV (83.0-97.0) fL MCH (27.0-32.0) pg MCHC (32.0-36.0) g/dL RDW Coeff of Jaida (11.0-15.0) % Plt Count (150-400) 10^3/uL Immature Gran % (Auto) (0.0-4.9) % Neut % (Auto) (41-71) % Lymph % (Auto) (24-44) % Floyd % (Auto) (0-10) % Eos % (Auto) (0-6) % Baso % (Auto) (0-1) % Neut # (Auto) (1.80-8.00) x10^3/uL Lymph # (Auto) (0.60-5.00) 10^3/uL Floyd # (Auto) (0.00-1.50) 10^3/uL Eos # (Auto) (0.00-1.50) 10^3/uL Baso # (Auto) (0.00-0.50) 10^3/uL Immature Gran # (Auto) (0.00-0.49) 10^3/uL PT (9.7-12.3) SEC INR (0.92-1.18) D-Dimer, Quantitative (0.00-0.50) Sodium (136-145) mEq/L Potassium (3.5-5.0) mEq/L Chloride (98-106) mEq/L Carbon Dioxide (21-32) mmol/L BUN (7-18) mg/dL Creatinine (0.7-1.3) mg/dL Est Cr Clr Drug Dosing mL/min Estimated GFR (MDRD) (>=60) mL/min Glucose (75-99) mg/dL Lactic Acid (0.4-2.0) mmol/L Calcium (8.4-10.1) mg/dL Magnesium (1.8-2.4) mg/dL Total Bilirubin (0.0-1.0) mg/dL AST (15-37) U/L ALT (12-78) U/L Alkaline Phosphatase (46-116) U/L Troponin I High Sens (<=76) pg/mL C-Reactive Protein (0.2-0.8) mg/dL Total Protein (6.4-8.2) g/dL Albumin (3.4-5.0) g/dL SARS CoV-2 RNA Rapid BLANCHE (NEGATIVE) Blood Type A NEGATIVE Gel Antibody Screen Negative Crossmatch See Detail Med Orders - Current: Current Medications Acetaminophen (Acetaminophen 325 Mg Tab) 650 mg PO Q4H PRN PRN Reason: Pain (Mild 1-3)/fever Insulin Human Lispro (Insulin Lispro 100 Units/Ml 3 Ml Vial) 0 unit SUBCUT TIDMEALS [facility]; Protocol Nifedipine (Nifedipine 30 Mg Tab.Er) 30 mg PO DAILY [facility] Tamsulosin HCl (Tamsulosin 0.4 Mg Cap.Er) 0.4 mg PO BID [facility] Discontinued Medications Furosemide (Furosemide 100 Mg/10 Ml Sdv) 100 mg IVPUSH ONETIME ONE Stop: 02/17/21 13:37 Last Admin: 02/17/21 15:05 Dose: 100 mg Documented by: Heparin Sodium (Porcine) (Heparin Sodium 5,000 Units/Ml Vial) 5,000 units SUBCUT Q12H [facility] Sodium Chloride (Normal Saline) 250 mls @ 125 mls/hr IV ONETIME ONE Stop: 02/17/21 16:44 Last Admin: 02/17/21 16:06 Dose: 125 mls/hr Documented by: Non-Formulary Medication (Insulin Aspart [Novolog]) 6 - 10 unit SUBCUT ASDIRECTED [facility] Pantoprazole Sodium (Pantoprazole 40 Mg Vial) 80 mg IVPUSH ONETIME ONE Stop: 02/17/21 16:45 Last Admin: 02/17/21 16:53 Dose: 80 mg Documented by: - Exam General: Reports: Alert, Oriented, Cooperative, No Acute Distress Lungs: Reports: Normal Respiratory Effort, Decreased Breath Sounds, Crackles Cardiovascular: Reports: Regular Rate, Regular Rhythm GI/Abdominal Exam: Normal Bowel Sounds, Soft, Non-Tender, No Distention, No Mass Rectal (Males) Exam: Heme + Stool. No: Mass, Tenderness Skin: Reports: Warm, Dry, Intact Neurological: Reports: No New Focal Deficit Psy/Mental Status: Reports: Alert, Normal Affect, Normal Mood
[2021-02-17] MEDS ORDERED: Tamsulosin 0.4 MG Cap.ER PO SCH (20:00)
[2021-02-18] MEDS ORDERED: NIFEdipine 30 MG Tab.ER PO SCH (08:00)
[2021-02-18] MEDS ORDERED: Heparin Sodium 5,000 Units/ML Vial SUBCUT SCH (08:00)
== END 2021-02-17 18:00 | DRG 177 ==
LOC: CC.ED 10:48 → CC.MS 12:35 → UNDOADMIN 13:13
PROVIDERS: ADMIT Physician Assistant Medical; ATTEND Family Medicine
PROC: 30233N1 Transfusion of Nonautologous Red Blood Cells into Peripheral Vein, Percutaneous Approach (ICD-10-PCS; principal; 2021-02-17)
DX: U07.1 COVID-19 (principal); N18.6 End stage renal disease; I12.0 Hypertensive chronic kidney disease with stage 5 chronic kidney disease or end stage renal disease; D64.9 Anemia, unspecified; R19.5 Other fecal abnormalities; H54.7 Unspecified visual loss; E78.00 Pure hypercholesterolemia, unspecified; K59.09 Other constipation; K21.9 Gastro-esophageal reflux disease without esophagitis; N40.0 Benign prostatic hyperplasia without lower urinary tract symptoms; M19.90 Unspecified osteoarthritis, unspecified site; M54.9 Dorsalgia, unspecified; G89.29 Other chronic pain; E11.22 Type 2 diabetes mellitus with diabetic chronic kidney disease; D84.9 Immunodeficiency, unspecified; Z96.649 Presence of unspecified artificial hip joint; E53.8 Deficiency of other specified B group vitamins; Z79.4 Long term (current) use of insulin; Z79.899 Other long term (current) drug therapy; Z98.49 Cataract extraction status, unspecified eye; Z90.49 Acquired absence of other specified parts of digestive tract; Z99.2 Dependence on renal dialysis; Z85.028 Personal history of other malignant neoplasm of stomach; Z88.8 Allergy status to other drugs, medicaments and biological substances
CPT/HCPCS: 36415; 36430; 71045; 80053; 83605; 83735; 84484; 85025; 85379; 85610; 86140; 86850; 86900; 86901; 86920; 86922; 87040; 93005; 99285-25; C9113; J1940; J7050; P9016; U0002

== ENCOUNTER 2021-04-24 09:43 | Emergency (ER) | payer MEDICARE, BC ==
[2021-04-24 09:54] VITALS: BP 165/81; PULSE 91
[2021-04-24 10:15] LABS: CHLORIDE,CL 98 mEq/L (98-106); SODIUM,NA 139 mEq/L (136-145)
--- NOTE | 2021-04-24 10:15 | EDM.PDOC ---
ED HPI GENERAL MEDICAL PROBLEM - General Chief Complaint: General Stated Complaint: PAIN LT HAND SIDE Time Seen by Provider: 04/24/21 10:03 Source of Information: Reports: Patient History Limitations: Reports: No Limitations - History of Present Illness INITIAL COMMENTS - FREE TEXT/NARRATIVE: This is an 80-year-old male patient that presents to the emergency department with ongoing complaints of left side abdominal pain. Patient states that his pain has been going on for months and has been evaluated by his hall cleaner. Patient reports that he fell about 3 weeks ago landing on his left side. Pain located more in the left upper quadrant and left lower rib area. Patient also reports that he has been "losing blood". Had mentioned that she has had multiple work-ups for GI bleeding including scopes of his stomach. States that he is to have dialysis today at 11 AM. Reports the pain was worse during the night and that is the reason he came to the ER today. He did say he had some associated nausea and then stated this nausea has also been going on for the last several months. Patient does report having darker stools which has been ongoing for several months.. Denies any diarrhea or nausea or vomiting at this time. Duration: Chronic (Months) Location: Reports: Abdomen (Left upper), Other (Lower left ribs) Quality: Reports: Ache Improves with: Reports: None Associated Symptoms: Reports: Nausea/Vomiting. Denies: Chest Pain, Shortness of Breath L Abd Pain Score (Numeric/FACES): 3 - Related Data Allergies Allergy/AdvReac Type Severity Reaction Status Date / Time metoclopramide [From Reglan] AdvReac Headache Verified 04/24/21 09:53 Home Meds: Home Meds Folic Acid 1 mg PO DAILY 01/14/14 [History] Tamsulosin [Flomax] 0.4 mg PO BID 07/20/17 [History] Cyanocobalamin (Vitamin B-12) [Cyanocobalamin Injection] 1 ml IM Q30D 05/14/18 [History] Insulin Aspart [NovoLOG] 6 - 10 unit SUBCUT ASDIRECTED 05/16/18 [History] Bumetanide [Bumex] 2 mg PO BID PRN 11/13/19 [History] Dicyclomine [Bentyl] 10 mg PO Q6HR PRN 07/08/20 [History] NIFEdipine [Nifedipine ER] 30 mg PO DAILY 07/08/20 [History] Vit A/Vit C/Vit E/Zinc/Copper [Preservision] 2 each PO DAILY 07/08/20 [History] Past Medical History HEENT History: Reports: Cataract, Impaired Vision Cardiovascular History: Reports: High Cholesterol, Hypertension Gastrointestinal History: Reports: Chronic Constipation, GERD, Other (See Below) Other Gastrointestinal History: gastric cancer Genitourinary History: Reports: BPH, Chronic Renal Insuffiency, Dialysis, Renal Disease Musculoskeletal History: Reports: Arthritis, Back Pain, Chronic, Other (See Below) Other Musculoskeletal History: compression fractures Neurological History: Reports: None Endocrine/Metabolic History: Reports: Diabetes, Type II, IDDM Hematologic History: Reports: B12 Deficiency Immunologic History: Reports: Immunosuppression Oncologic (Cancer) History: Reports: Other (See Below) Other Oncologic History: Gastric - Infectious Disease History Infectious Disease History: Reports: C-Difficile - Past Surgical History HEENT Surgical History: Reports: Cataract Surgery Cardiovascular Surgical History: Reports: Other (See Below) Other Cardiovascular Surgeries/Procedures: FEMORAL STENT, R ARM FISTULA, L CHEST PORT, R CHEST NICHOLE DIALYSIS CATHETER GI Surgical History: Reports: Appendectomy, Cholecystectomy, EGD, Other (See Below) Other GI Surgeries/Procedures: ULCERS CLIPPED, 1/3 of stomach remaining d/t cancer Male Surgical History: Reports: None Endocrine Surgical History: Reports: None Neurological Surgical History: Reports: Vertebroplasty Musculoskeletal Surgical History: Reports: Amputation, Hip Replacement, Other (See Below) Other Musculoskeletal Surgeries/Procedures:: elbow surgery. vertebralplasty X3. R DISTAL TOE AMPUTATION Oncologic Surgical History: Reports: None Social & Family History - Family History Family Medical History: No Pertinent Family History - Tobacco Use Tobacco Use Status *Q: Never Tobacco User Second Hand Smoke Exposure: No - Caffeine Use Caffeine Use: Reports: None - Recreational Drug Use Recreational Drug Use: No ED ROS GENERAL - Review of Systems Review Of Systems: See Below Constitutional: Denies: Fever, Chills HEENT: Reports: No Symptoms Respiratory: Denies: Shortness of Breath, Cough, Sputum Cardiovascular: Reports: Edema. Denies: Chest Pain, Dyspnea on Exertion Endocrine: Denies: Fatigue GI/Abdominal: Reports: Abdominal Pain (Left upper quadrant and side pain), Melena. Denies: Constipation, Diarrhea : Reports: No Symptoms Musculoskeletal: Reports: Other (Rib pain) Skin: Reports: No Symptoms Neurological: Denies: Confusion, Dizziness, Headache Psychiatric: Reports: No Symptoms. Denies: Agitation, Anxiety, Confusion Hematologic/Lymphatic: Reports: No Symptoms Immunologic: Reports: No Symptoms ED EXAM, GENERAL - Physical Exam Exam: See Below Exam Limited By: No Limitations General Appearance: Alert, WD/WN, No Apparent Distress Ears: Normal External Exam, Hearing Grossly Normal Nose: Normal Inspection, No Blood Throat/Mouth: Normal Inspection, Normal Lips, Normal Voice, No Airway Compromise Head: Atraumatic, Normocephalic Neck: Normal Inspection, Supple, Non-Tender Respiratory/Chest: No Respiratory Distress, Lungs Clear, Normal Breath Sounds, Other (Tenderness with palpation to the left lower rib cage) Cardiovascular: Normal Peripheral Pulses, Regular Rate, Rhythm, No Gallop, No Murmur, No Rub GI/Abdominal: Normal Bowel Sounds, Soft, No Organomegaly, No Abnormal Bruit, No Mass, Tender (Left upper quadrant tender upon palpation) (Male) Exam: Deferred Rectal (Males) Exam: Deferred Extremities: Pedal Edema (2-3+ edema to bilateral lower extremities) Neurological: Alert, Oriented, CN II-XII Intact, Normal Cognition, No Motor/Sensory Deficits Psychiatric: Normal Affect, Normal Mood Skin Exam: Warm, Dry, Intact Course - Vital Signs Last Recorded V/S: Last Vital Signs Temp 97.8 F 04/24/21 09:51 Pulse 91 04/24/21 09:51 Resp 18 04/24/21 09:51 BP 165/81 H 04/24/21 09:51 Pulse Ox 96 04/24/21 09:51 - Orders/Labs/Meds Orders: Active Orders 24 hr Category Date Time Status Abdomen 2V AP Flat Upright [CR] Stat Exams 04/24/21 10:09 Ordered COMPREHENSIVE METABOLIC PN,CMP [CHEM] Stat Lab 04/24/21 10:00 Received LIPASE [CHEM] Stat Lab 04/24/21 10:00 Received MAGNESIUM [CHEM] Stat Lab 04/24/21 10:00 Received Labs: Laboratory Tests 04/24/21 Range/Units 10:00 WBC 3.3 L (4.0-11.0) 10^3/uL RBC 2.85 L (4.50-6.00) x10^6/uL Hgb 8.6 L (14.0-18.0) g/dL Hct 27.2 L (42.0-52.0) % MCV 95.4 (83.0-97.0) fL MCH 30.2 (27.0-32.0) pg MCHC 31.6 L (32.0-36.0) g/dL RDW Coeff of Jaida 17.4 H (11.0-15.0) % Plt Count 106 L (150-400) 10^3/uL Immature Gran % (Auto) 0.3 (0.0-4.9) % Neut % (Auto) 71.2 H (41-71) % Lymph % (Auto) 10.3 L (24-44) % Donley % (Auto) 11.2 H (0-10) % Eos % (Auto) 6.7 H (0-6) % Baso % (Auto) 0.3 (0-1) % Neut # (Auto) 2.34 (1.80-8.00) x10^3/uL Lymph # (Auto) 0.34 L (0.60-5.00) 10^3/uL Donley # (Auto) 0.37 (0.00-1.50) 10^3/uL Eos # (Auto) 0.22 (0.00-1.50) 10^3/uL Baso # (Auto) 0.01 (0.00-0.50) 10^3/uL Immature Gran # (Auto) 0.01 (0.00-0.49) 10^3/uL - Re-Assessments/Exams Free Text/Narrative Re-Assessment/Exam: This is an 80-year-old male patient that presented to the emergency department with left upper quadrant and left lower rib pain. On physical assessment pain was more tender when the left lower ribs were palpated. Patient has had chronic left-sided abdominal pain for several months. Patient was to receive dialysis at 11:00 today. Labs were obtained including a CBC and a CMP. Hemoglobin was at 8.6 and when compared to previous levels this is improved. Creatinine level is elevated and was expected due to need for dialysis today. A flat and upright abdominal x-ray was obtained identifying some stool in the left side of the colon and some gas but no evidence of free air or obstruction. Dr. Prasad, hall cleaner, was consulted and updated with these findings. Dr. Prasad recommended that he patient go ahead and receive his dialysis today. Dr. Prasad was calling the dialysis center in [place] to let them know that the patient will be late for his appointment, but will still be able to have dialysis. Discussed all findings and the recommendation of Dr. Prasad with the patient. Plan will be to discharge the patient home so that he can receive his outpatient dialysis treatment. Patient may use Tylenol for discomfort. Patient may also use a stool softener or laxative as needed for constipation. He was instructed to drink plenty of fluids and stay as mobile as possible. If symptoms continue he should follow-up for further evaluation with his primary care provider. Patient can call or return to the emergency department if he has any questions or his symptoms worsen. Departure - Departure Time of Disposition: 10:50 Disposition: Home, Self-Care 01 Condition: Good Clinical Impression: Rib pain on left side Abdominal pain Qualifiers: Abdominal location: left upper quadrant Qualified Code(s): R10.12 - Left upper quadrant pain - Discharge Information *PRESCRIPTION DRUG MONITORING PROGRAM REVIEWED*: Not Applicable *COPY OF PRESCRIPTION DRUG MONITORING REPORT IN PATIENT CHRISTINA: Not Applicable Instructions: Abdominal Pain, Adult Additional Instructions: 1. May take Tylenol as needed for pain. 2. May use a [id number] stool softener or laxative as needed for mild constipation. 3. Your hemoglobin was 8.6 today which in comparison with recent lab studies is about your normal range. 4. There is no active signs of acute bleeding at this time. 5. Dr. Prasad has made arrangements for you to get your dialysis in [place] today. You will be able to get your dialysis if you are able to check in by 1:00 PM 6. Follow-up with your primary care provider if the symptoms persist for further evaluation. 7. Call or return to the emergency department if you have any questions or if you develop worsening symptoms. Sepsis Event Note (ED) - Evaluation Sepsis Screening Result: No Definite Risk - Focused Exam Vital Signs: Vital Signs Temp Pulse Resp BP Pulse Ox 04/24/21 09:51 97.8 F 91 18 165/81 H 96 - My Orders Last 24 Hours: My Active Orders 04/24/21 10:00 COMPREHENSIVE METABOLIC PN,CMP [CHEM] Stat LIPASE [CHEM] Stat MAGNESIUM [CHEM] Stat 04/24/21 10:09 Abdomen 2V AP Flat Upright [CR] Stat - Assessment/Plan Last 24 Hours: My Active Orders 04/24/21 10:00 COMPREHENSIVE METABOLIC PN,CMP [CHEM] Stat LIPASE [CHEM] Stat MAGNESIUM [CHEM] Stat 04/24/21 10:09 Abdomen 2V AP Flat Upright [CR] Stat
== END 2021-04-24 11:32 | disposition home or self-care (01) ==
LOC: CC.ED 09:43
DX: R10.12 Left upper quadrant pain (principal); R07.81 Pleurodynia; E78.00 Pure hypercholesterolemia, unspecified; K21.9 Gastro-esophageal reflux disease without esophagitis; E11.22 Type 2 diabetes mellitus with diabetic chronic kidney disease; I12.9 Hypertensive chronic kidney disease with stage 1 through stage 4 chronic kidney disease, or unspecified chronic kidney disease; N18.9 Chronic kidney disease, unspecified; N40.0 Benign prostatic hyperplasia without lower urinary tract symptoms; Z88.8 Allergy status to other drugs, medicaments and biological substances; Z79.4 Long term (current) use of insulin; Z79.899 Other long term (current) drug therapy
CPT/HCPCS: 36415; 74019; 80053; 83690; 83735; 85025; 99284-25